=== PATIENT | female | born 1945 | race Asian ===

== ENCOUNTER 2023-09-06 18:18 | Emergency (ER) | payer MEDICARE, OTHER, SELFPAY ==
[2023-09-06 18:24] VITALS: BP 158/88; PULSE 98; RESP 20; TEMP 37.7; O2SAT 97; BMI 27.4
--- NOTE | 2023-09-06 18:41 | ED_ITS ---
HPI - General Adult General Chief complaint: Upper Respiratory Infection Stated complaint: COVID POS, FEVER Time Seen by Provider: 09/06/23 18:22 Source: patient Mode of arrival: walk-in Limitations: language barrier History of Present Illness HPI narrative: Patient is a 77-year-old female who presents to the emergency department for fever intermittently for the last 4 days. Patient states she was diagnosed with COVID, she has not been on any medications. Family member at bedside states that they were concerned because the patient has had fevers, when they use Motrin or Tylenol, her fever improves, but when the medicine wears off the fever comes back. Patient has not had any chest pain, shortness of breath. She has had a cough, she states food does not taste good. She reports nausea but has not had any significant vomiting or diarrhea. Family member is concerned for pneumonia. Patient was fully vaccinated for COVID. Related Data Previous Rx's Medication Instructions Recorded dexamethasone 4 mg tablet 4 mg PO BID 5 days #10 tabs 09/06/23 levofloxacin 750 mg tablet 750 mg PO DAILY 5 days #5 tabs 09/06/23 ondansetron 4 mg disintegrating 4 mg PO Q6H PRN nausea and 09/06/23 tablet vomiting #12 tabs Allergies Allergy/AdvReac Type Severity Reaction Status Date / Time codeine Allergy Severe fast heart Verified 09/06/23 18:24 rate Review of Systems ROS Constitutional Reports: fever and chills Ears, nose, mouth, and throat Reports: nasal congestion; Denies: throat pain Cardiovascular Denies: chest pain Respiratory Reports: cough; Denies: shortness of breath Gastrointestinal Reports: nausea; Denies: vomiting Genitourinary Denies: painful urination Musculoskeletal Denies: back pain Integumentary/Breast Denies: rash Neurological Denies: headache Exam Narrative Exam Narrative: Gen.: Awake, alert, in no distress Head: Normocephalic, atraumatic ENT: Moist mucous membranes Respiratory: No respiratory distress, lungs clear bilaterally Cardio: Regular rate and rhythm Extremities: Moves extremities equally Psych: Normal mood and affect Neuro: No focal neuro deficit Skin: Warm, dry, intact Constitutional Vital Signs, click to edit/add: Last Vital Signs Temp 100 F 09/06/23 18:24 Pulse 98 H 09/06/23 18:24 Resp 20 09/06/23 18:24 BP 158/88 H 09/06/23 18:24 Pulse Ox 97 09/06/23 18:24 O2 Del Method Room Air 09/06/23 18:24 Course Vital Signs Vital signs: Vital Signs Temperature 100 F 09/06/23 18:24 Pulse Rate 98 H 09/06/23 18:24 Respiratory Rate 20 09/06/23 18:24 Blood Pressure 158/88 H 09/06/23 18:24 Pulse Oximetry 97 09/06/23 18:24 Oxygen Delivery Method Room Air 09/06/23 18:24 Temperature 100 F 09/06/23 18:24 Pulse Rate 98 H 09/06/23 18:24 Respiratory Rate 20 09/06/23 18:24 Blood Pressure 158/88 H 09/06/23 18:24 Pulse Oximetry 97 09/06/23 18:24 Oxygen Delivery Method Room Air 09/06/23 18:24 Medical Decision Making MDM Narrative Medical decision making narrative: Patient was stable vital signs in the ER, I gave education and reassurance to the patient and family member at bedside about fever control. Patient's t emperature is controlled in the ER, vital signs are otherwise stable. She has no complaints of chest pain or shortness of breath. She was treated with Zofran and Decadron in the ER and chest x-ray shows mild bibasilar opacities, no significant consolidated infiltrate. Patient placed on Levaquin due to her age and history of diabetes for the bibasilar opacifications, as well as Decadron and Zofran for home. She is well-hydrated and nontoxic at time of discharge. Follow-up with PCP and return to the ER if symptoms change or worsen. Medical Records Medical records reviewed: Yes I reviewed the patient's medical records Imaging Data Chest x-ray: Attestation: I have reviewed the pertinent imaging results. Radiologist's impression: Procedure: XR chest 1V EXAMINATION: XR chest 1V 09/06/2023 4:24 PM PST HISTORY: Cough, Covid + TECHNIQUE: Single frontal view of the chest acquired. COMPARISONS: Chest x-ray 01/24/2022 FINDINGS: Lines/tubes/other: None. Heart and mediastinum: The heart and the mediastinum are within normal limits for technique. Bones: No acute osseous abnormality. Lungs: Mild patchy bibasilar opacification. Pleura: There is no significant pleural effusion or pneumothorax. Other: None. IMPRESSION: Mild bibasilar opacification compatible with pneumonia in the setting of cough and positive COVID. Recommend follow-up 2 view chest x-ray in 2-3 months to ensure improvement. Electronically authenticated by: CHANDLER HAYNES Date: 09/06/2023 19:26 Discharge Plan Discharge Chief Complaint: Upper Respiratory Infection Clinical Impression: COVID-19 Patient Disposition: Home, Self-Care Time of Disposition Decision: 19:35 Condition: Good Prescriptions / Home Meds: New levofloxacin 750 mg tablet 750 mg PO DAILY 5 Days Qty: 5 0RF dexamethasone 4 mg tablet 4 mg PO BID 5 Days Qty: 10 0RF ondansetron 4 mg tablet,disintegrating 4 mg PO Q6H PRN (Reason: nausea and vomiting) Qty: 12 0RF Instructions: COVID-19 (Coronavirus Disease 2019) (ED), How to Recover from COVID-19 at Home (ED) Stand Alone Forms: Portal Instructions Referrals: AGUSTIN BOLTON [Primary Care Provider] - 1 week
--- NOTE | 2023-09-06 18:50 | XR_ITS ---
The [address] [address] Patient Name: ALMAS IZAGUIRRE MRN: [id number] date: 1945 Sex: F Assigned Patient Location: ED.MAIN Current Patient Location: ER Accession/Order Number: [id number] Exam Date: 09/06/2023 18:45 Report Date: 09/06/2023 19:26 At the request of: RADHA GRAY Procedure: XR chest 1V EXAMINATION: XR chest 1V 09/06/2023 4:24 PM PST HISTORY: Cough, Covid + TECHNIQUE: Single frontal view of the chest acquired. COMPARISONS: Chest x-ray 01/24/2022 FINDINGS: Lines/tubes/other: None. Heart and mediastinum: The heart and the mediastinum are within normal limits for technique. Bones: No acute osseous abnormality. Lungs: Mild patchy bibasilar opacification. Pleura: There is no significant pleural effusion or pneumothorax. Other: None. XR/XR chest 1V IMPRESSION: Mild bibasilar opacification compatible with pneumonia in the setting of cough and positive COVID. Recommend follow-up 2 view chest x-ray in 2-3 months to ensure improvement. Electronically authenticated by: CHANDLER HAYNES Date: 09/06/2023 19:26
[2023-09-06] MEDS: DEXAMETHASONE SOD PHOS 10 MG/ML VIAL PO (19:46)
[2023-09-06] MEDS: ONDANSETRON 4 MG RAPDIS TABLET SL (19:47)
== END 2023-09-06 19:57 | disposition home or self-care (01) ==
PROVIDERS: Emergency Provider Emergency Medicine Emergency Medical Services; PCP Family Medicine
DX: U07.1 COVID-19 (principal); R50.9 Fever, unspecified
CPT/HCPCS: 71045; 99283; J1100

== ENCOUNTER 2023-09-14 11:55 | Outpatient (OUT) | payer MEDICARE, OTHER, SELFPAY ==
--- NOTE | 2023-09-14 12:02 | XR_ITS ---
The [address] [address] Patient Name: ALMAS IZAGUIRRE MRN: [id number] date: 1945 Sex: F Assigned Patient Location: LAB Current Patient Location: LAB Accession/Order Number: [id number] Exam Date: 09/14/2023 12:15 Report Date: 09/14/2023 12:37 At the request of: AGUSTIN BOLTON Procedure: XR chest 2V EXAM: XR chest 2V HISTORY: Pneumonia Due To COVID 19 U07.1 COMPARISON: None. TECHNIQUE: PA and lateral views of the chest. FINDINGS: The cardiomediastinal silhouette is normal. Nodular opacity of the bilateral parahilar. No focal consolidation is identified. There is no pneumothorax. No pleural effusion is noted. The osseous structures are intact. XR/XR chest 2V IMPRESSION: No focal consolidation. Possible bilateral mediastinal lymphadenopathy. This could be further evaluated with CT. Electronically authenticated by: DANIEL MAGANA Date: 09/14/2023 12:37
== END 2023-09-14 11:56 | disposition home or self-care (01) ==
PROVIDERS: PCP Family Medicine; Visit Provider Family Medicine
DX: U07.1 COVID-19 (principal); J12.82 Pneumonia due to coronavirus disease 2019
CPT/HCPCS: 71046

== ENCOUNTER 2023-09-22 08:44 | Outpatient (OUT) | payer MEDICARE, OTHER, SELFPAY ==
--- NOTE | 2023-09-22 | CT_ITS ---
The [address] [address] Patient Name: ALMAS IZAGUIRRE MRN: [id number] date: 1945 Sex: F Assigned Patient Location: LAB Current Patient Location: LAB Accession/Order Number: [id number] Exam Date: 09/22/2023 09:17 Report Date: 09/25/2023 11:44 At the request of: AGUSTIN BOLTON Procedure: CT chest w con EXAM: CT chest w con ,09/22/2023. COMPARISON STUDY: CT of the chest without contrast 01/27/2022 HISTORY: SOFT TISSUE MASS HILAR LYMPHADENOPATHY R59.0 TECHNIQUE: 3 mm sections were obtained from the thoracic inlet through the diaphragm following the administration of intravenous contrast. Coronal and sagittal reconstructed images were obtained. FINDINGS: There is a lobulated hypervascular left hepatic lesion involving the lateral segment with transverse diameter of 18 mm. A hypodense lesion on prior study of this region is of similar size. Mild background atrophic changes of the kidneys with multifocal cortical thinning and scarring noted. Multiple small right renal cysts, one of which measures 16 mm noted. Upper abdominal contents demonstrate no acute abnormality. Similar atherosclerotic change of the aorta and its branches are identified without aortic aneurysm/dissection. Heart size is stable. Subcentimeter calcified right paratracheal node is identified. No new significantly enlarged adenopathy. No convincing evidence of a large acute central pulmonary embolus. Minor chronic right apical fibrotic change is stable, image #11, series 4. Vertically oriented linear fibrosis more caudally involving the right upper lobe caudal to this with mild adjacent architectural distortion and mild volume loss again identified. No edema, failure, pneumonia, pneumothorax, or mass lesion has developed. Lingular atelectatic/fibrotic change is also stable. Multilevel lower cervical more so than thoracic degenerative changes of the spine are noted. Chondrocalcinosis with similar arthritic changes about the sternoclavicular articulations noted again. Subcentimeter sclerotic change associated with the left third and sixth ribs anterolaterally are stable. CT/CT chest w con IMPRESSION: 1. Stable chronic fibrotic changes associated with the right upper lobe and inferior lingula. No acute cardiopulmonary process. 2. No significantly enlarged adenopathy. No suspicious pulmonary mass or nodule. 3. Lobulated hypervascular lesion within lateral segment left hepatic lobe presumably related to hemangioma versus focal nodular hyperplasia. 4. Multifocal cortical thinning and scarring at the upper poles of both kidneys as well as multiple right renal cysts noted. Electronically authenticated by: LESTER DE LEON Date: 09/25/2023 11:44
[2023-09-22 09:03] LABS: Estimated GFR (African America >60 (>=60); Estimated GFR (Non-African Ame 51 (>=60)
== END 2023-09-22 08:45 | disposition home or self-care (01) ==
LOC: LAB 08:45
PROVIDERS: PCP Family Medicine; Visit Provider Family Medicine
DX: R59.0 Localized enlarged lymph nodes (principal); I12.9 Hypertensive chronic kidney disease with stage 1 through stage 4 chronic kidney disease, or unspecified chronic kidney disease; N18.30 Chronic kidney disease, stage 3 unspecified
CPT/HCPCS: 36415; 71260; 82565; Q9967

== ENCOUNTER 2024-10-14 09:58 | Emergency (ER) | payer MEDICARE, OTHER, SELFPAY ==
--- NOTE | 2024-10-14 | XR_ITS ---
[address] [address] Patient Name: ALMAS IZAGUIRRE MRN: [id number] date: 1945 Sex: F Assigned Patient Location: ER Current Patient Location: ER Accession/Order Number: [id number] Exam Date: 10/14/2024 10:35 Report Date: 10/14/2024 10:57 At the request of: NITO QUINTANA Procedure: XR chest 2V EXAMINATION: XR chest 2V HISTORY: cough COMPARISON: XR chest 09/14/2023 FINDINGS: LUNGS: No significant pulmonary parenchymal abnormalities. VASCULATURE: No increased pulmonary vasculature. PLEURA: No pneumothorax, effusion, or pleural thickening. CARDIAC: No cardiomegaly or cardiac silhouette abnormality. MEDIASTINUM: No visible mass or adenopathy. BONES: No fracture or visible bone lesion. OTHER: Negative. XR/XR chest 2V IMPRESSION: 1. No acute cardiopulmonary process. Electronically authenticated by: MARK MOMIN Date: 10/14/2024 10:57
[2024-10-14 10:03] VITALS: BP 139/75; PULSE 64; TEMP 37.2; O2SAT 98; BMI 29.3
--- NOTE | 2024-10-14 10:24 | ED_ITS ---
HPI HPI - General Adult General Chief complaint: Upper Respiratory Infection Stated complaint: URTI COMPLAINTS Time Seen by Provider: 10/14/24 10:07 Source: patient Mode of arrival: walk-in Limitations: no limitations History of Present Illness HPI narrative: Presenting to the emergency department for evaluation of not feeling well. Patient went to urgent care, they gave her steroid, Z-Enrique, and that inhaler. Patient states that she does not feel any better, she was there about a week, but would be gone today. Not having any chest pain, shortness of breath, fevers, chills. Is not having any sputum production. States that approximately week ago she was having a couple days of cough, nasal congestion, sore throat, throat itching. No chest pain, shortness of breath. No other complaints at this time Related Data Home Medications ?Medication ?Instructions ?Recorded ?Confirmed albuterol sulfate 90 mcg/actuation inhalation 10/14/24 aerosol inhaler amlodipine 10 mg tablet mg 10/14/24 aspirin 81 mg capsule 81 mg PO DAILY 10/14/24 10/14/24 atorvastatin 20 mg tablet mg 10/14/24 atorvastatin 40 mg tablet mg 10/14/24 bisoprolol 10 1 tab PO DAILY 10/14/24 10/14/24 mg-hydrochlorothiazide 6.25 mg tablet empagliflozin 10 mg tablet mg 10/14/24 (Jardiance) levothyroxine 75 mcg tablet mcg 10/14/24 losartan 100 mg tablet (Cozaar) 100 mg PO DAILY 10/14/24 10/14/24 Previous Rx's ?Medication ?Instructions ?Recorded dexamethasone 4 mg tablet 4 mg PO BID 5 days #10 tabs 09/06/23 levofloxacin 750 mg tablet 750 mg PO DAILY 5 days #5 tabs 09/06/23 ondansetron 4 mg disintegrating 4 mg PO Q6H PRN nausea and 09/06/23 tablet vomiting #12 tabs Allergies Allergy/AdvReac Type Severity Reaction Status Date / Time codeine Allergy Severe fast heart Verified 10/14/24 10:06 rate Opioid HPI Opioid Management Most Recent Opioid Data: No Data to Display Review of Systems ROS Narrative Negative unless otherwise stated in the HPI PFSH PFSH Social History Little interest or pleasure in doing things: not at all Feeling down, depressed, or hopeless: not at all Exam Narrative Exam Narrative: General: NAD, AAOx3, no distress Eyes: PERRL, EOMI, lids/conjunctiva normal. HEENT: NCAT, mmm, TMs normal bilaterally. No lymphangitis/lymphedema, midline uvula, no exudates, normal tonsils without hypertrophy or exudates Neck: Supple, no LAD, negative Kernig/Brudzinski, non meningeal, no bruit Respiratory: respiratory effort normal, speaks in full sentences, no tripod position, no accessory muscle use. Lungs clear to auscultation without rhonchi, wheezes, rales Cardiac: Regular rate and rhythm, no edema, regular s1/s2, no m/g/r Constitutional Vital Signs, click to edit/add: Last Vital Signs Temp 99.0 F 10/14/24 10:03 Pulse 64 10/14/24 10:03 Resp 18 10/14/24 10:03 BP 139/75 10/14/24 10:03 Pulse Ox 98 10/14/24 10:03 O2 Del Method Room Air 10/14/24 10:03 Course Vital Signs Vital signs: Vital Signs Temperature 99.0 F 10/14/24 10:03 Pulse Rate 64 10/14/24 10:03 Respiratory Rate 18 10/14/24 10:03 Blood Pressure 139/75 10/14/24 10:03 Pulse Oximetry 98 10/14/24 10:03 Oxygen Delivery Method Room Air 10/14/24 10:03 Temperature 99.0 F 10/14/24 10:03 Pulse Rate 64 10/14/24 10:03 Respiratory Rate 18 10/14/24 10:03 Blood Pressure 139/75 10/14/24 10:03 Pulse Oximetry 98 10/14/24 10:03 Oxygen Delivery Method Room Air 10/14/24 10:03 Medical Decision Making MDM Narrative Medical decision making narrative: [facility] Patient with history as above presented with upper respiratory infection. History obtained from patient. Patient was nontoxic, stable. Ambulatory. Exam as above. Independently reviewed imaging. Reviewed external records. Differential diagnosis considered. Overall presentation is consistent with a viral RI Pt who presented to the ER today for URI symptoms. Patient on exam was well appearing and non toxic appearing. Vitals were reviewed. Patient has no symptoms of otitis media, pneumonia, bacterial pharyngitis or other serious bacterial illness. Respiratory status is unremarkable. At this point in time, patient likely has viral syndrome with no indications for antibiotics. I have recommended fluids and motrin for symptomatic control. Close follow up with PCP. Advanced guidance has been given. Vss, pex is benign at this time. Pt to fu with pcp 1-2 days for reeval, rter should sx worsen, persist or become worrysome in any way. Pt expressed understanding and agreement with plan of care at this time. Will fu as planned. Pt stable for discharge. Lab Data Labs: Lab Results 10/14/24 Range/Units 10:26 Influenza Type A Ag Negative Influenza Type B Ag Negative SARS-CoV-2 Ag (CV2AG) Negative (NEGATIVE) Discharge Plan Discharge Chief Complaint: Upper Respiratory Infection Clinical Impression: Upper respiratory infection Patient Disposition: Home, Self-Care Time of Disposition Decision: 12:07 Prescriptions / Home Meds: No Action levofloxacin 750 mg tablet 750 mg PO DAILY 5 Days Qty: 5 0RF dexamethasone 4 mg tablet 4 mg PO BID 5 Days Qty: 10 0RF ondansetron 4 mg tablet,disintegrating 4 mg PO Q6H PRN (Reason: nausea and vomiting) Qty: 12 0RF atorvastatin 40 mg tablet levothyroxine 75 mcg tablet amlodipine 10 mg tablet Jardiance 10 mg tablet losartan [Cozaar] 100 mg tablet 100 mg PO DAILY bisoprolol-hydrochlorothiazide 10-6.25 mg tablet 1 tab PO DAILY aspirin 81 mg capsule 81 mg PO DAILY atorvastatin 20 mg tablet albuterol sulfate 90 mcg/actuation HFA aerosol inhaler INHALATION Print Language: Irish Instructions: Upper Respiratory Infection (DC) Additional Instructions: Follow-up with your PCP in the next 1 to 2 days. Return to the emergency department should symptoms worsen or become worrisome in any way. Referrals: AGUSTIN BOLTON [Primary Care Provider] - 1 week
[2024-10-14 10:53] LABS: Influenza Virus A Antigen Negative; Influenza Virus B Antigen Negative; Internal Control Within Normal Limits; SARS-CoV-2 Ag NEGATIVE (NEGATIVE)
== END 2024-10-14 12:27 | disposition home or self-care (01) ==
PROVIDERS: Emergency Provider Emergency Medicine; PCP Family Medicine
DX: J06.9 Acute upper respiratory infection, unspecified (principal)
CPT/HCPCS: 71046; 87804; 87811; 99284

== ENCOUNTER 2025-05-16 08:10 | Emergency (ER) | payer MEDICARE, OTHER, SELFPAY ==
[2025-05-16 08:15] VITALS: BP 166/93; PULSE 67; TEMP 36.8; O2SAT 98; BMI 29.3
--- OUTSIDE RECORDS SUMMARY | 2025-05-16 08:18 | XMS_ITS | CCD ---
Author Organization [facility] CliniSyms Care Team Providers Care 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 Name Role Phone JON, DR MATT May Admitting Unavailable FURLONG, DR MATT May Attending Unavailable FURLONG, DR MATT May Primary Care Unavailable FURLONG, DR MATT May Consulting Unavailable RACHELLONG, MATT May Primary Care Unavailable Chris Garcia Admitting Unavailable Chris Garcia Attending Unavailable FURLONG, MATT Mya Referring Unavailable FURLONG, MATT May Primary Care Unavailable Furlong Matt AMEZCUA Primary Care Provider [phone] MATT WEBB Referring Unavailable FURLONG, MATT May Primary Care Unavailable FURLONG, MATT May Referring Unavailable FURLONG, MATT May Primary Care Unavailable FURLONG, MATT May Referring Unavailable FURLONG, MATT May Primary Care Unavailable Furlong Matt AMEZCUA Primary Care Provider [phone] Gemini Silva APRN Attending Provider Gemini Silva Attending Unavailable Gemini Silva Admitting Unavailable FURLONG, MATT May Attending Unavailable FURLONG, MATT May Referring Unavailable FURLONG, MATT May Primary Care Unavailable FURLONG, MATT May Attending Unavailable FURLONG, MATT May Referring Unavailable FURLONG, MATT May Primary Care Unavailable FURLONG, MATT May Referring Unavailable FURLONG, MATT May Primary Care Unavailable FURLONG, MATT May Attending Unavailable FURLONG, MATT G Referring Unavailable FURLONG, MATT G Primary Care Unavailable FURLONG, MATT May Attending Unavailable FURLONG, MATT May Referring Unavailable FURLONG, MATT G Primary Care Unavailable FURLONG, MATT May Attending Unavailable FURLONG, MATT May Referring Unavailable FURLONG, MATT May Primary Care Unavailable Allergies Allergy Classification Reported Allergen(s) Allergy Type Date of Onset Reaction(s) Facility (1 source) Cortisone Drug Allergy [facility] Repository (1 source) Acetaminophen / HYDROcodone; Translations: [[place]] Drug Allergy [facility] Repository (20 sources) Codeine; Translations: [codeine] Drug Allergy 07-25-2022 [facility] Repository (20 sources) Acetaminophen / HYDROcodone; Translations: [HYDROCODONE-ACETA MINOPHEN] Drug Allergy 07-26-2022 [facility] Repository Medications Current Medications Medication Drug Class(es) Dates Sig (Normalized) Sig (Original) amLODIPine 10 mg oral tablet (20 sources) Dihydropyridine Calcium Channel Kaelyn Start: 03-19-2025 take 1 tablet by mouth once daily after dinner amLODIPine (NORVASC) 10 mg tablet Indications: Primary hypertension Take 1 tablet (10 mg total) by mouth daily after dinner. 03/19/2025 Active Start: 10-31-2024 End: 03-19-2025 take 0.5 tablet by mouth once daily after dinner amLODIPine (NORVASC) 10 mg tablet Indications: Primary hypertension Take 0.5 tablets (5 mg total) by mouth daily after dinner. 10/31/2024 03/19/2025 Discontinued Start: 07-15-2023 End: 10-31-2024 take 1 tablet by mouth once daily Amlodipine 10 mg tablet Active 10 MG PO Daily October 07, 2024 1:00am ascorbic acid 100 mg oral tablet (11 sources) Vitamin C take 1 tablet by mouth in the morning ascorbic acid, vitamin C, (VITAMIN C) 100 MG tablet Take 1 tablet (100 mg total) by mouth in the morning. Active aspirin 81 mg chewable tablet (20 sources) Platelet Aggregation Inhibitor, Nonsteroidal Anti-inflammatory Drug Start: 10-07-2024 take 1 tablet by mouth once daily Aspirin 81 mg tablet,chewable Active 81 MG PO Daily October 07, 2024 1:00am Start: 07-26-2022 take 1 tablet by leda th in the morning aspirin 81 mg Indications: Primary hypertension Take 1 tablet (81 mg total) by mouth in the morning. 150 tablet 2 07/26/2022 Active atorvastatin 40 mg oral tablet (20 sources) HMG-CoA Reductase Inhibitor Start: 01-17-2024 End: 12-12-2024 atorvastatin (LIPITOR) 40 mg tablet TAKE 1 TABLET IN THE MORNING 90 tablet 3 12/12/2024 Active Start: 09-14-2023 End: 01-17-2024 take 1 tablet by mouth in the morning atorvastatin (LIPITOR) 20 mg tablet Indications: Mixed hyperlipidemia Take 1 tablet (20 mg total) by mouth in the morning. 90 tablet 2 09/14/2023 01/17/2024 Discontinued (Dose adjustment) Bisoprolol / hydroCHLOROthiazide (20 sources) Thiazide Diuretic, beta-Adrenergic Kaelyn Start: 10-07-2024 take 1 tablet by mouth once daily Bisoprolol-Hydrochlorothiazide 10-6.25 mg tablet Active 1 TAB PO daily October 07, 2024 1:00am Start: 09-05-2023 End: 08-21-2024 bisoprolol-hydroCHLOROthiazi de (ZIAC) 10-6.25 mg per tablet Indications: Primary hypertension TAKE 1 TABLET IN THE MORNING 90 tablet 3 08/21/2024 Active calcium citrate 250 mg / ergocalciferol 100 mg oral tablet (11 sources) Provitamin D2 Compound take 1 tablet by mouth once in the morning calcium citrate-vitamin D2 250 mg-2.5 mcg (100 unit) per tablet Take by mouth in the morning. Active calcium citrate- vitamin D2 250 mg-2.5 mcg (100 unit) per tablet Take by mouth once daily. Active ciprofloxacin 250 mg oral tablet (1 source) Quinolone Antimicrobial Start: 03-09-2025 take 1 tablet by mouth every twelve hours Ciprofloxacin Hcl (Cipro) 250 mg tablet Active 250 MG PO Every 12 hours 10 March 09, 2025 12:00am empagliflozin 10 mg oral tablet (20 sources) Sodium-Glucose Cotransporter 2 Inhibitor Start: 09-24-2024 End: 03-13-2025 take 1 tablet by mouth in the morning empagliflozin (JARDIANCE) 10 mg tablet tablet Indications: Benign hypertension with CKD (chronic kidney disease) stage III ([facility]-H[facility]) Take 1 tablet (10 mg total) by mouth in the morning. 90 tablet 03/13/2025 Active Start: 09-14-2023 End: 06-05-2024 empagliflozin (JARDIANCE) 10 mg tablet tablet Indications: 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) TAKE 1 TABLET IN THE MORNING 90 tablet 1 06/05/2024 Active famotidine 20 mg oral tablet (20 sources) Histamine-2 Receptor Antagonist Start: 09-14-2023 End: 02-26-2024 take 1 tablet by mouth in the morning, then take 1 tablet by mouth at bedtime famotidine (PEPCID) 20 mg tablet Take 1 tablet (20 mg total) by mouth in the morning and 1 tablet (20 mg total) before bedtime. 180 tablet 1 02/26/2024 Active 30 actuat fluticasone furoate 0.1 mg/actuat / umeclidinium 0.0625 mg/actuat / vilanterol 0.025 mg/actuat dry powder inhaler (1 source) Anticholinergic, Corticosteroid, beta2-Adrenergic Agonist Start: 10-31-2024 End: 11-14-2024 take 1 puff(s) by inhalation once daily fluticasone-umecl idin-vilanter (TRELEGY ELLIPTA) 100-62.5-25 mcg blister with device Inhale 1 puff once daily for 14 days. 1 each 10/31/2024 11/14/2024 Active hydrocortisone 10 mg/ml / neomycin 3.5 mg/ml / polymyxin b [id number] unt/ml otic solution (2 sources) Aminoglycoside Antibacterial, Polymyxin-class Antibacterial, Corticosteroid Start: 07-21-2024 End: 07-31-2024 neomycin-polymyxi n-HC (CORTISPORIN) otic solution Administer 3 drops into the left ear 3 (three) times a day for 10 days. 10 mL 07/21/2024 07/31/2024 Active lifitegrast 50 mg/ml ophthalmic solution (10 sources) Lymphocyte Function-Associated Antigen-1 Antagonist End: 07-21-2024 lifitegrast (XIIDRA) 5 % dropperette Instill to eye. 07/21/2024 Discontinued (Therapy completed) losartan potassium 100 mg oral tablet (20 sources) Angiotensin 2 Receptor Kaelyn Start: 09-24-2024 take 1 tablet by mouth in the morning losartan (COZAAR) 100 mg tablet Indications: Benign hypertension with CKD (chronic kidney disease) stage III ([facility]-HCC) Take 1 tablet (100 mg total) by mouth in the morning. 90 tablet 3 09/24/2024 Active Start: 09-22-2024 losartan (COZA AR) 100 mg tablet Indications: Benign hypertension with CKD (chronic kidney disease) stage III ([facility]-HCC) TAKE 1 TABLET IN THE MORNING 90 tablet 3 09/22/2024 Active Start: 08-23-2023 End: 09-22-2024 losartan (COZAAR) 100 mg tab let Indications: Benign hypertension with CKD (chronic kidney disease) stage III ([facility]-H[facility]) TAKE 1 TABLET IN THE MORNING 90 tablet 3 08/23/2023 09/22/2024 Discontinued yysiygpc-fafq-SN-calcium &mi ns (THERAGRAN-M) 9 mg iron-400 mcg tablet (11 sources) uqihmfdz-xxgh-RE -calcium &mins (THERAGRAN-M) 9 mg iron-400 mcg tablet Take 1 tablet by mouth in the morning. Active czwum-8-kqe-wmn-paf-exch oil 1,050-1,200 mg capsule (11 sources) take [id number] mg by mouth in the morning evokq-1-nls-yvj-dnl-ygex oil 1,050-1,200 mg capsule Take by mouth in the morning. Active nvszc-6-mig-epa- dpa-fish oil 1,050-1,200 mg capsule Take by mouth daily. Active triamcinolone acetonide 1 mg/ml topical cream (13 sources) Corticosteroid Start: 10-31-2024 End: 10-31-2024 triamcinolone (KENALOG) 0.1 % cream Apply 1 Application topically in the morning and 1 Application before bedtime. 30 g 10/31/2024 Active Completed/Discontinued Medications Medication Drug Class(es) Dates Sig (Normalized) Sig (Original) Albuterol Sulfate 90 mcg/actuation HFA aerosol inhaler (2 sources) Start: 10-07-2024 End: 03-09-2025 Albuterol Sulfate 90 mcg/actuation HFA aerosol inhaler Discontinued 2 INH INHALATION EVERY 4-6 HOURS as needed for shortness of breath or wheezing 6.7 October 07, 2024 1:00am March 09, 2025 6:27pm fenofibrate 54 mg oral tablet (3 sources) Peroxisome Proliferator Receptor alpha Agonist Start: 07-26-2022 End: 01-16-2024 take 1 tablet by mouth in the morning fenofibrate (LOFIBRA) 54 mg tablet Indications: Mixed hyperlipidemia Take 1 tablet (54 mg total) by mouth in the morning. 90 tablet 3 07/26/2022 01/16/2024 Discontinued (Ineffective) levothyroxine sodium 0.075 mg oral tablet (20 sources) l-Thyroxine Start: 05-25-2023 End: 05-13-2025 take 1 tablet by mouth once daily in the morning levothyroxine (SYNTHROID, LEVOTHROID) 75 MCG tablet Indications: Acquired hypothyroidism TAKE 1 TABLET BY MOUTH EVERY MORNING 90 tablet 2 01/27/2025 05/13/2025 Discontinued (Reorder) ondansetron 4 mg disintegrating oral tablet (3 sources) Serotonin-3 Receptor Antagonist Start: 09-06-2023 End: 01-16-2024 ondansetron ODT (ZOFRAN ODT) 4 mg disintegrating tablet dissolve 1 tablet ON TONGUE every 6 hours if needed for nausea OR vomiting 09/06/2023 01/16/2024 Discontinued (Therapy completed) oseltamivir 75 mg oral capsule (2 sources) Neuraminidase Inhibitor Start: 10-07-2024 End: 03-09-2025 take 1 capsule by mouth twice daily Oseltamivir (Tamiflu) 75 mg capsule Discontinued 75 MG PO Twice daily 10 October 07, 2024 1:00am March 09, 2025 6:28pm pantoprazole 40 mg delayed release oral tablet (3 sources) Proton Pump Inhibitor Start: 07-26-2022 End: 01-16-2024 take 1 tablet by mouth in the morning pantoprazole (PROTONIX) 40 mg EC tablet Indications: Gastroesophageal reflux disease without esophagitis Take 1 tablet (40 mg total) by mouth in the morning. 90 tablet 1 07/26/2022 01/16/2024 Discontinued (Therapy completed) predniSONE 20 mg oral tablet (2 sources) Start: 10-07-2024 End: 03-09-2025 take 2 tablets by mouth once daily Prednisone 20 mg tablet Discontinued 40 MG PO Daily 6 October 07, 2024 1:00am March 09, 2025 6:28pm Problems Active Problems Problem Classification Problem Date Documented Da te Episodic/Chronic Chronic kidney disease (2 sources) Chronic kidney disease; Translations: [Chronic kidney disease, stage 3 unspecified] Onset: Diabetes mellitus without complication (2 sources) Diabetes mellitus; Translations: [Type 2 diabetes mellitus without complications] 10-07-2024 Chronic Disorders of lipid metabolism (20 sources) Hyperlipidemia; Translations: [Hyperlipidemia, unspecified] Onset: 2 07-26-2022 Chronic Esophageal disorders (20 sources) Gastroesophageal reflux disease; Translations: [Gastro-esophageal reflux disease without esophagitis] Onset: 2 07-26-2022 Chronic Essential hypertension (20 sources) Essential hypertension; Translations: [Essential (primary) hypertension] Onset: 2 10-31-2024 Chronic Hypertension with complications and secondary hypertension (20 sources) Chronic kidney disease stage 3; Translations: [Hypertensive chronic kidney disease with stage 1 through stage 4 chronic kidney disease, or unspecified chronic kidney disease] Onset: 2 09-22-2022 Chronic Influenza (2 sources) Influenza due to Influenza A virus; Translations: [Influenza due to other identified influenza virus with other respiratory manifestations] 10-07-2024 Episodic Nonspecific chest pain (2 sources) Chest pain; Translations: [Chest pain, unspecified] Onset: 5 03-19-2025 Episodic Osteoporosis (20 sources) Osteoporosis; Translations: [Age-related osteoporosis without current pathological fracture] Onset: 2 07-26-2022 Chronic Other ear and sense organ disorders (17 sources) Chronic otitis externa of left external auditory canal; Translations: [Unspecified chronic otitis externa, left ear] Onset: 4 07-21-2024 Chronic Other ear and sense organ disorders (1 source) Unspecified chronic otitis externa, left ear; Translations: [Unspecified chronic otitis externa, left ear] Onset: 4 Chronic Other gastrointestinal disorders (20 sources) Irritable bowel syndrome; Translations: [Irritable bowel syndrome without diarrhea] Onset: 2 07-26-2022 Chronic Other inflammatory condition of skin (2 sources) Inflammatory dermatosis; 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] 10-31-2024 Episodic Other lower respiratory disease (1 source) Cough; Translations: [Subacute cough] 10-31-2024 Episodic Other nervous system disorders (1 source) Other chronic pain; Translations: [Other chronic pain] Onset: 4 Chronic Other nervous system disorders (1 source) Complex regional pain syndrome type I of left upper limb; Translations: [Complex regional pain syndrome I of left upper limb] 01-16-2024 Chronic Other nervous system disorders (1 source) Impaired cognition; Translations: [Other symptoms and signs involving cognitive functions and awareness] 12-17-2024 Episodic Other non-traumatic joint disorders (2 sources) Pain in right knee; Translations: [Pain in joint, lower leg] Onset: 4 01-16-2024 Episodic Other upper respiratory disease (20 sources) Allergic rhinitis; Translations: [Allergic rhinitis, unspecified] Onset: 3 04-02-2023 Chronic Other upper respiratory disease (1 source) Hoarse; Translations: [Dysphonia] 10-31-2024 Episodic Screening and history of mental health and substance abuse codes (2 sources) Patient encounter status; Translations: [Encounter for screening for depression] 11-20-2024 Episodic Thyroid disorders (20 sources) Hypothyroidism; Translations: [Hypothyroidism, unspecified] Onset: 2 07-26-2022 Chronic Unclassified (1 source) maw Onset: 5 Unclassified (1 source) Rash Onset: 5 Urinary tract infections (2 sources) Acute urinary tract infection; Translations: [Urinary tract infection, site not specified] 03-09-2025 Episodic Past or Other Problems Problem Classification Problem Date Documented Da te Episodic/Chronic Conditions associated with dizziness or vertigo (20 sources) Vertigo; Translations: [Dizziness and giddiness] Onset: 07-26-2022 07-26-2022 Episodic Diabetes mellitus without complication (4 sources) Hyperglycemia; Translations: [Hyperglycemia, unspecified] Onset: 01-16-2024 01-16-2024 Episodic Genitourinary symptoms and ill-defined conditions (20 sources) Dysuria; Translations: [Dysuria] Onset: 12-25-2022 Resolved: 07-16-2023 07-16-2023 Episodic Immunizations and screening for infectious disease (3 sources) Needs influenza immunization; Translations: [Encounter for immunization] Onset: 07-21-2024 07-21-2024 Episodic Mood disorders (20 sources) Mood disorders Onset: 07-21-2024 Resolved: 03-19-2025 07-21-2024 Other ear and sense organ disorders (20 sources) Impacted cerumen of bilateral ears; Translations: [Impacted cerumen, bilateral] Onset: 09-22-2022 09-22-2022 Episodic Other gastrointestinal disorders (20 sources) Dysphagia; Translations: [Dysphagia, unspecified] Onset: 09-22-2022 09-22-2022 Episodic Other nervous system disorders (2 sources) Other symptoms and signs involving cognitive functions and awareness; Translations: [Other symptoms and signs involving cognitive functions and awareness] Onset: 12-17-2024 Episodic Other nutritional; endocrine; and metabolic disorders (20 sources) Overweight; Translations: [Overweight] Onset: 04-02-2023 04-02-2023 Episodic Other nutritional; endocrine; and metabolic disorders (1 source) Body mass index 25-29 - overweight; Translations: [Overweight] 01-16-2024 Episodic Other nutritional; endocrine; and metabolic disorders (1 source) Overweight; Translations: [Overweight] Onset: 04-02-2023 Episodic Unclassified (3 sources) Onset: 03-19-2025 03-19-2025 Results Test Name Value Interpretation Reference Range Facility COMPREHENSIVE METABOLIC [facility] 03-19-2025 Albumin [Mass/Vol] 4.5 g/dL Normal 3.2-5.[address] [facility] Comment on above: Performed By: #### C MP #### [facility] ([facility]) [address] [place] [address] VIR ALP [Catalytic activity/Vol] 61 U/L Normal 39-130 [facility] Comment on above: Performed By: #### C MP #### [facility] ([facility]) [address] [place] [address] VIR ALT [Catalytic activity/Vol] 25 U/L Normal <=31 [facility] Comment on above: Performed By: #### C MP #### [facility] ([facility]) [address] [place] [address] VIR Anion gap [Moles/Vol] 11 mmol/L Normal 5-15 [facility] Comment on above: Performed By: #### C MP #### [facility] ([facility]) [address] [place] [address] VIR AST [Catalytic activity/Vol] 35 U/L Normal <=41 [facility] Comment on above: Performed By: #### C MP #### [facility] ([facility]) [address] [place] [address] VIR Bilirubin [Mass/Vol] 1.2 mg/dL Normal 0.3-1.2 [facility] Comment on above: Performed By: #### C MP #### [facility] ([facility]) [address] [place] [address] VIR Calcium [Mass/Vol] 9.5 mg/dL Normal 8.5-10.[address] [facility] Comment on above: Performed By: #### C MP #### [facility] ([facility]) [address] [place] [address] VIR Chloride [Moles/Vol] 109 mmol/L Normal 98-109 [facility] Comment on above: Performed By: #### C MP #### [facility] ([facility]) [address] [place] [address] VIR CO2 [Moles/Vol] 21 mmol/L Low 22-32 [facility] Comment on above: Performed By: #### C MP #### [facility] ([facility]) [address] [place] [address] VIR Creatinine [Mass/Vol] 0.96 mg/dL Normal 0.40-1.00 [facility] Comment on above: Result Comment: METH OD TRACEABLE TO IDMS STANDARD Performed By: #### C MP #### [facility] ([facility]) [address] [place] [address] VIR GFR/1.73 sq M.predicted among non-blacks MDRD (S/P/Bld) [Vol rate/Area] 61 mL/min/{1.73_m2} Normal >=60 [facility] Comment on above: Result Comment: Repo rted eGFR is based on the CKD-EPI 2020 equation that does not use a race coefficient. Performed By: #### C MP #### [facility] ([facility]) [address] [place] [address] VIR Glucose [Mass/Vol] 92 mg/dL Normal 65-[address] [facility] Comment on above: Performed By: #### C MP #### [facility] ([facility]) [address] [place] [address] VIR Potassium [Moles/Vol] 4.5 mmol/L Normal 3.5-5.0 [facility] Comment on above: Performed By: #### C MP #### [facility] ([facility]) [address] [place] [address] VIR Protein [Mass/Vol] 6.9 g/dL Normal 6.0-8.[address] [facility] Comment on above: Performed By: #### C MP #### [facility] ([facility]) [address] [place] [address] VIR Sodium [Moles/Vol] 141 mmol/L Normal 134-[address] [facility] Comment on above: Performed By: #### C MP #### [facility] ([facility]) [address] [place] [address] VIR Urea nitrogen [Mass/Vol] 21 mg/dL Normal 5-27 [facility] Comment on above: Performed By: #### C MP #### [facility] ([facility]) [address] [place] [address] VIR Comprehensive metabolic pane gerard 03-19-2025 Albumin [Mass/Vol] 4.5 g/dL 3.2 - 5.3 g/dL [facility] ALP [Catalytic activity/Vol] 61 U/L 39 - 130 U/L [facility] ALT No additional P-5'-P [Catalytic activity/Vol] 25 U/L NINF - 31 U/L [facility] Anion gap [Moles/Vol] 11 mmol/L 5 - 15 mmol/L [facility] AST [Catalytic activity/Vol] 35 U/L NINF - 41 U/L [facility] Bilirubin [Mass/Vol] 1.2 mg/dL 0.3 - 1.2 mg/dL [facility] Calcium [Mass/Vol] 9.5 mg/dL 8.5 - 10. 5 mg/dL [facility] Chloride [Moles/Vol] 109 mmol/L 98 - 109 mmol/L [facility] CO2 [Moles/Vol] 21 mmol/L Low 22 - 32 mmol/L [facility] Creatinine [Mass/Vol] 0.96 mg/dL 0.40 - 1.00 mg/dL [facility] Comment on above: METHOD TRACEABLE TO IDSD STANDARD EGFR Non-Race Dependent 61 - PINF [facility] Comment on above: Reported eGFR is bas ed on the CKD-EPI 2020 equation that does not use a race coefficient. Glucose [Mass/Vol] 92 mg/dL 65 - 99 mg/dL [facility] Potassium [Moles/Vol] 4.5 mmol/L 3.5 - 5.0 mmol/L [facility] Protein [Mass/Vol] 6.9 g/dL 6.0 - 8.0 g/dL [facility] Sodium [Moles/Vol] 141 mmol/L 134 - 146 mmol/L [facility] Urea nitrogen [Mass/Vol] 21 mg/dL 5 - 27 mg/dL [facility] LIPID PROFILEon 03-19-2025 Cholesterol [Mass/Vol] 110 mg/dL Low 150-200 [facility] Comment on above: Performed By: #### L IPR #### [facility] ([facility]) [address] [place] [address] VIR Cholesterol in HDL [Mass/Vol] 46 mg/dL Normal >39 [facility] Comment on above: Result Comment: HDL <40 mg/dL - High Risk HDL > or = 40mg/dL- Desirable HDL >60 mg/dL - Negative Risk Performed By: #### L IPR #### [facility] ([facility]) [address] [place] [address] VIR Cholesterol in LDL [Mass/Vol] 33 mg/dL Normal <130 [facility] Comment on above: Result Comment: LDL <100 mg/dL - Desirable LDL >160 mg/dL - High Risk Performed By: #### L IPR #### [facility] ([facility]) [address] [place] [address] VIR CHOLESTEROL:HDL 2.4 Normal 1.0-5.0 [facility] Comment on above: Performed By: #### L IPR #### [facility] ([facility]) [address] [place] [address] VIR Triglyceride [Mass/Vol] 154 mg/dL High 27-150 [facility] Comment on above: Performed By: #### L IPR #### [facility] ([facility]) [address] [place] [address] VIR VERY LOW LIPOPROTEIN 31 mg/dL High 0-30 [facility] Comment on above: Performed By: #### L IPR #### [facility] ([facility]) [address] [place] [address] VIR Lipid profileon 03-19-2025 Cholesterol [Mass/Vol] 110 mg/dL Low 150 - 200 mg/dL [facility] Cholesterol in HDL [Mass/Vol] 46 mg/dL 39 - PINF mg/dL [facility] Comment on above: HDL <40 mg/dL - High Risk HDL > or = 40mg/dL- Desirable HDL >60 mg/dL - Negative Risk Cholesterol in HDL [Mass/Vol] 2.4 mg/dL 1.0 - 5.0 [facility] Cholesterol in LDL [Mass/Vol] 33 mg/dL NINF - 130 mg/dL [facility] Comment on above: LDL <100 mg/dL - Sy irable LDL >160 mg/dL - High Risk Cholesterol in VLDL [Mass/Vol] 31 mg/dL High 0 - 30 mg/dL [facility] Triglyceride [Mass/Vol] 154 mg/dL High 27 - 150 mg/dL [facility] MICROALBUMIN / CREATININE UR INE RATIOon 03-19-2025 Albumin DL <= 20 mg/L (U) [Mass/Vol] 0.7 mg/dL Normal 0.0-1.9 [facility] Comment on above: Performed By: #### M ALBU #### [facility] ([facility]) [address] [place] [address] VIR MALB/CREAT RATIO 6.8 mg/g Normal 0.0-30.0 [facility] Comment on above: Performed By: #### M ALBU #### [facility] ([facility]) [address] [place] [address] VIR URINE CREATININE,RDM 102.81 mg/dL Normal [facility] Comment on above: Performed By: #### M ALBU #### [facility] ([facility]) [address] [place] [address] VIR Microalbumin - Albumin: Crea tinine Urine Ratioon 03-19-2025 Albumin DL <= 20 mg/L (U) [Mass/Vol] 0.7 mg/dL 0.0 - 1.9 mg/dL [facility] Albumin/Creatinine DL <= 1.0 mg/L (U) [Ratio] 6.8 mg/g 0.0 - 30.0 mg/g [facility] Creatinine (U) [Mass/Vol] 102.81 mg/dL [facility] No Panel Informationon 03-19 Interpretation and review of laboratory results Abnormal [facility] POCT urinalysis dipstick onl yon 03-19-2025 Appearance (U) yellow [facility] Urine Bilirubin Negative [facility] Urine Blood Negative [facility] Urine Color yellow [facility] Urine Glucose Moderate [facility] Urine Ketones Negative [facility] Urine Leukocyte Esterase Negative [facility] Urine Nitrite Negative [facility] Urine Ph 6 [facility] Urine Protein Negative [facility] Urine Specific Currie 1.02 [facility] Urine Urobilinogen 0.2 [facility] Urine Cultureon 03-09-2025 Bacteria identified Cx Nom (U) <9,000 colonies/ml mixed bacterial skin contaminants 2 Days PERFORMED BY: [facility] [address] [id number] PATHOLOGIST HOME SERVICE CONSULTANT RALEIGH CASTILLO M.D. Normal [facility] Comment on above: Performed By: #### C UU #### [place] [id number] [facility] COMPLETE BLOOD COUNTon 12-17 Erythrocyte distribution width (RBC) [Ratio] 13.8 % Normal 11.5-15.0 [facility] Comment on above: Performed By: #### C LEXY, 41867-4, THYR #### [facility] ([id number]) [address] [place] [address] Hematocrit (Bld) [Volume fraction] 45.9 % Normal 35-47 [facility] Comment on above: Performed By: #### C LEXY, 15060-6, THYR #### [facility] ([id number]) [address], [address] [place] [address] Hemoglobin (Bld) [Mass/Vol] 15.7 g/dL High 11.7-15.5 [facility] Comment on above: Performed By: #### C LEXY, 97427-5, THYR #### [facility] ([id number]) [address], [address] [place] [address] MCH (RBC) [Entitic mass] 33.9 pg Normal 27-34 [facility] Comment on above: Performed By: #### C LEXY, 50782-2, THYR #### [facility] ([id number]) [address], [address] [place] [address] MCHC (RBC) [Mass/Vol] 34.3 g/dL Normal 32-36 [facility] Comment on above: Performed By: #### C LEXY, 87897-5, THYR #### [facility] ([id number]) [address], [address] [place] [address] MCV (RBC) [Entitic vol] 99 fL Normal 80-100 [facility] Comment on above: Performed By: #### Cori PUGH, 95604-6, THYR #### [facility] ([id number]) [address] [place] [address] Platelet mean volume (Bld) [Entitic vol] 8.7 fL Normal 7-12 [facility] Comment on above: Performed By: #### Cori PUGH, 43827-7, THYR #### [facility] ([id number]) [address] [place] [address] Platelets (Bld) [#/Vol] 348 10*3/uL Normal 150-450 [facility] Comment on above: Performed By: #### Cori PUGH, 75992-7, THYR #### [facility] ([id number]) [address], [address] [place] [address] RBC COUNT 4.64 X10E12/L Normal 3.80-5.20 [facility] Comment on above: Performed By: #### Cori PUGH, 14624-8, THYR #### [facility] ([id number]) [address], [facility] [address] [place] [address] WBC (Bld) [#/Vol] 5.9 10*3/uL Normal 4.0-11.0 [facility] Comment on above: Performed By: #### Cori PUGH, 55210-5, THYR #### [facility] ([id number]) [address], [address] [place] [address] COMPREHENSIVE METABOLIC PANE Gerard 12-17-2024 Albumin [Mass/Vol] 4.6 g/dL Normal 3.2-5.3 [facility] Comment on above: Performed By: #### Cori PUGH, 09226-0, THYR #### [facility] ([id number]) [address], [address] [place] [address] ALP [Catalytic activity/Vol] 62 U/L Normal 39-130 [facility] Comment on above: Performed By: #### Cori PUGH, 49751-0, THYR #### [facility] ([id number]) [address], [address] [place] [address] ALT [Catalytic activity/Vol] 22 U/L Normal 0-31 [facility] Comment on above: Performed By: #### Cori PUGH, 07827-4, THYR #### [facility] ([id number]) [address], [address] [place] [address] Anion gap [Moles/Vol] 9 mmol/L Normal 5-15 [facility] Comment on above: Performed By: #### Cori PUGH 75846-9, THYR #### [facility] ([id number]) [address], [address] [place] [address] AST [Catalytic activity/Vol] 33 U/L Normal 0-41 [facility] Comment on above: Performed By: #### Cori PUGH, 34668-3, THYR #### [facility] ([id number]) [address], [address] [place] [address] Bilirubin [Mass/Vol] 1.1 mg/dL Normal 0.3-1.2 [facility] Comment on above: Performed By: #### Cori PUGH 54349-4, THYR #### [facility] ([id number]) [address], [address] [place] [address] Calcium [Mass/Vol] 10.0 mg/dL Normal 8.5-10.5 [facility] Comment on above: Performed By: #### Cori PUGH, 34493-6, THYR #### [facility] ([id number]) [address], [address] [place] [address] Chloride [Moles/Vol] 107 mmol/L Normal 98-109 [facility] Comment on above: Performed By: #### C LEXY, 37495-6, THYR #### [facility] ([id number]) [address], [address] [place] [address] CO2 [Moles/Vol] 21 mmol/L Low 22-32 [facility] Comment on above: Performed By: #### C LEXY, 39571-7, THYR #### [facility] ([id number]) [address], [address] [place] [address] Creatinine [Mass/Vol] 0.87 mg/dL Normal 0.40-1.00 [facility] Comment on above: Result Comment: METH OD TRACEABLE TO IDMS STANDARD Performed By: #### C LEXY, 83026-7, THYR #### [facility] ([id number]) [address], [address] [place] [address] GFR/1.73 sq M.predicted among non-blacks MDRD (S/P/Bld) [Vol rate/Area] 68 mL/min/{1.73_m2} Normal >59 [facility] Comment on above: Result Comment: Reported eGFR is based on the CKD-EPI 2020 equation that does not use a race coefficient. Performed By: #### Cori PUGH, 35446-0, THYR #### [facility] ([id number]) [address], [address] [place] [address] Glucose [Mass/Vol] 99 mg/dL Normal 65-99 [facility] Comment on above: Performed By: #### Cori PUGH, 70539-8, THYR #### [facility] ([id number]) [address] [place] [address] Potassium [Moles/Vol] 4.2 mmol/L Normal 3.5-5.0 [facility] Comment on above: Performed By: #### Cori PUGH, 86869-3, THYR #### [facility] ([id number]) [address], [address] [place] [address] Protein [Mass/Vol] 7.2 g/dL Normal 6.0-8.0 [facility] Comment on above: Performed By: #### C LEXY, 77861-1, THYR #### [facility] ([id number]) [address], [address] [place] [address] Sodium [Moles/Vol] 137 mmol/L Normal 134-146 [facility] Comment on above: Performed By: #### C LEXY, 80359-3, THYR #### [facility] ([id number]) [address], [address] [place] [address] Urea nitrogen [Mass/Vol] 29 mg/dL High 5-27 [facility] Comment on above: Performed By: #### C LEXY, 96239-4, THYR #### [facility] ([id number]) [address], [address] [place] [address] POCT urinalysis dipstick onl yon 12-17-2024 Appearance (U) yellow [facility] Urine Bilirubin Negative [facility] Urine Blood Negative [facility] External Poct Urine Color yellow [facility] Urine Glucose 4+ [facility] Urine Ketones Negative [facility] Urine Leukocyte Esterase Negative [facility] Urine Nitrite Negative [facility] Urine Ph 5.5 [facility] Urine Protein Negative [facility] Urine Specific Currie 1.015 [facility] Urine Urobilinogen 0.2 [facility] THYROID PROFILEon 12-17-2024 Free T4 [Mass/Vol] 1.43 ng/dL Normal 0.61-1.60 [facility] Comment on above: Performed By: #### C LEXY, 95288-3, THYR #### [facility] ([id number]) [address], [address] [place] [address] TSH 1.91 uIU/mL Normal 0.49-4.67 [facility] Comment on above: Performed By: #### Cori PUGH, 90065-2, THYR #### [facility] ([id number]) [address], [address] [place] [address] VITAMIN B12on 12-17-2024 Cobalamin (Vitamin B12) [Mass/Vol] pg/mL High 180-914 [facility] Comment on above: Performed By: #### Cori PUGH, 60132-7, THYR #### [facility] ([id number]) [address], [address] [place] [address] COMPLETE BLOOD COUNTon 07-21 Erythrocyte distribution width (RBC) [Ratio] 13.4 % Normal 11.5-15.0 [facility] Comment on above: Performed By: #### C BC, CMP, 26379-2, 2777-1, 3084-1, 2731-8, 50200-6, HA1C #### [facility] ([id number]) [address], [address] [place] [address] Hematocrit (Bld) [Volume fraction] 45.3 % Normal 35-47 [facility] Comment on above: Performed By: #### C BC, CMP, 85445-2, 2777-1, 3084-1, 2731-8, 53180-3, HA1C #### [facility] ([id number]) [address], [address] [place] [address] Hemoglobin (Bld) [Mass/Vol] 15.6 g/dL High 11.7-15.5 [facility] Comment on above: Performed By: #### C BC, CMP, 30331-3, 2777-1, 3084-1, 2731-8, 44999-2, HA1C #### [facility] ([id number]) [address], [address] [place] [address] MCH (RBC) [Entitic mass] 33.8 pg Normal 27-34 [facility] Comment on above: Performed By: #### C BC, CMP, 68842-7, 2777-1, 3084-1, 2731-8, 17386-6, HA1C #### [facility] ([id number]) [address], [address] [address] MCHC (RBC) [Mass/Vol] 34.4 g/dL Normal 32-36 [facility] Comment on above: Performed By: #### C BC, CMP, 48159-0, 2777-1, 3084-1, 2731-8, 92109-4, HA1C #### [facility] ([id number]) [address] [address] MCV (RBC) [Entitic vol] 98 fL Normal 80-100 [facility] Comment on above: Performed By: #### C BC, CMP, 79319-2, 2777-1, 3084-1, 2731-8, 99682-6, HA1C #### [facility] ([id number]) [address], [address] [address] Platelet mean volume (Bld) [Entitic vol] 9.0 fL Normal 7-12 [facility] Comment on above: Performed By: #### C BC, CMP, 07427-0, 2777-1, 3084-1, 2731-8, 14594-4, HA1C #### [facility] ([id number]) [address] [address] Platelets (Bld) [#/Vol] 313 10*3/uL Normal 150-450 [facility] Comment on above: Performed By: #### C BC, CMP, 51481-4, 2777-1, 3084-1, 2731-8, 44569-7, HA1C #### [facility] ([id number]) [address], [address] [place] [address] RBC COUNT 4.62 X10E12/L Normal 3.80-5.20 [facility] Comment on above: Performed By: #### C BC, CMP, 05067-8, 2777-1, 3084-1, 2731-8, 17836-2, HA1C #### [facility] ([id number]) [address] [place] [address] WBC (Bld) [#/Vol] 5.7 10*3/uL Normal 4.0-11.0 [facility] Comment on above: Performed By: #### C BC, CMP, 53843-5, 2777-1, 3084-1, 2731-8, 68722-1, HA1C #### [facility] ([id number]) [address] [place] [address] COMPREHENSIVE METABOLIC PANE [facility] 07-21-2024 Albumin [Mass/Vol] 4.6 g/dL Normal 3.2-5.3 [facility] Comment on above: Performed By: #### C BC, CMP, 51202-9, 2777-1, 3084-1, 2731-8, 43989-3, HA1C #### [facility] ([id number]) [address] [place] [address] ALP [Catalytic activity/Vol] 69 U/L Normal 39-130 [facility] Comment on above: Performed By: #### C BC, CMP, 03917-2, 2777-1, 3084-1, 2731-8, 29458-2, HA1C #### [facility] ([id number]) [address], [address] [place] [address] ALT [Catalytic activity/Vol] 24 U/L Normal 0-31 [facility] Comment on above: Performed By: #### C BC, CMP, 67628-8, 2777-1, 3084-1, 2731-8, 97152-4, HA1C #### [facility] ([id number]) [address] [place] [address] Anion gap [Moles/Vol] 10 mmol/L Normal 5-15 [facility] Comment on above: Performed By: #### C BC, CMP, 68368-1, 2777-1, 3084-1, 2731-8, 67109-6, HA1C #### [facility] ([id number]) [address] [place] [address] AST [Catalytic activity/Vol] 32 U/L Normal 0-41 [facility] Comment on above: Performed By: #### C BC, CMP, 48070-1, 2777-1, 3084-1, 2731-8, 49509-7, HA1C #### [facility] ([id number]) [address], [address] [place] [address] Bilirubin [Mass/Vol] 1.1 mg/dL Normal 0.3-1.2 [facility] Comment on above: Performed By: #### C BC, CMP, 36405-5, 2777-1, 3084-1, 2731-8, 91124-6, HA1C #### [facility] ([id number]) [address], [address] [place] [address] Calcium [Mass/Vol] 9.7 mg/dL Normal 8.5-10.5 [facility] Comment on above: Performed By: #### C BC, CMP, 52980-9, 2777-1, 3084-1, 2731-8, 88119-4, HA1C #### [facility] ([id number]) [address] [place] [address] Chloride [Moles/Vol] 107 mmol/L Normal 98-109 [facility] Comment on above: Performed By: #### C BC, CMP, 05136-4, 2777-1, 3084-1, 2731-8, 79377-6, HA1C #### [facility] ([id number]) [address], [address] [place] [address] CO2 [Moles/Vol] 25 mmol/L Normal 22-32 [facility] Comment on above: Performed By: #### C BC, CMP, 26893-0, 2777-1, 3084-1, 2731-8, 56704-5, HA1C #### [facility] ([id number]) [address] [facility] [place] [address] Creatinine [Mass/Vol] 0.89 mg/dL Normal 0.40-1.00 [facility] Comment on above: Result Comment: METH OD TRACEABLE TO IDMS STANDARD Performed By: #### C BC, CMP, 89981-5, 2777-1, 3084-1, 2731-8, 43226-1, HA1C #### [facility] ([id number]) [address] [facility] [facility] [address] [place] [address] GFR/1.73 sq M.predicted among non-blacks MDRD (S/P/Bld) [Vol rate/Area] 67 mL/min/{1.73_m2} Normal >59 [facility] Comment on above: Result Comment: Reported eGFR is based on the CKD-EPI 2020 equation that does not use a race coefficient. Performed By: #### C BC, CMP, 55592-2, 2777-1, 3084-1, 2731-8, 33708-4, HA1C #### [facility] ([id number]) [address] [facility] [address] [place] [address] Glucose [Mass/Vol] 102 mg/dL High 65-99 [facility] Comment on above: Performed By: #### C BC, CMP, 87781-6, 2777-1, 3084-1, 2731-8, 46245-9, HA1C #### [facility] ([id number]) [address] [place] [address] Potassium [Moles/Vol] 4.4 mmol/L Normal 3.5-5.0 [facility] Comment on above: Performed By: #### C BC, CMP, 90637-2, 2777-1, 3084-1, 2731-8, 75311-7, HA1C #### [facility] ([id number]) [address] [place] [address] Protein [Mass/Vol] 7.0 g/dL Normal 6.0-8.0 [facility] Comment on above: Performed By: #### C BC, CMP, 15433-7, 2777-1, 3084-1, 2731-8, 06698-2, HA1C #### [facility] ([id number]) [address] [place] [address] Sodium [Moles/Vol] 142 mmol/L Normal 134-146 [facility] Comment on above: Performed By: #### C BC, CMP, 36762-9, 2777-1, 3084-1, 2731-8, 69440-2, HA1C #### [facility] ([id number]) [address] [place] [address] Urea nitrogen [Mass/Vol] 23 mg/dL Normal 5-27 [facility] Comment on above: Performed By: #### C BC, CMP, 06351-8, 2777-1, 3084-1, 2731-8, 43569-9, HA1C #### [facility] ([id number]) [address] [place] [address] HGB A1C (GLYCO-HGB)on 2023 Glucose [Mass/Vol] 108 mg/dL Normal [facility] Comment on above: Performed By: #### C MP, 20147-5, THYR #### [facility] ([id number]) [address], [address] [place] [address] HbA1c (Bld) [Mass fraction] 5.4 % Normal 4.4-5.6 [facility] Comment on above: Result Comment: NOTE ADA Guidelines Result HgbA1c Normal : less than 5.7 % Prediabetes : 5.7 % to 6.4 % Diabetes : > 6.4 % Use with caution in patients with abnormal hemoglobin variants as the half-life of red blood cells and in vivo glycation rates are affected. Performed By: #### C MP, 71710-2, THYR #### [facility] ([id number]) [address] [place] [address] MAGNESIUMon 07-21-2024 Magnesium [Mass/Vol] 2.1 mg/dL Normal 1.8-2.6 [facility] Comment on above: Performed By: #### C BC, CMP, 64513-2, 2777-1, 3084-1, 2731-8, 48062-6, HA1C #### [facility] ([id number]) [address] [place] [address] PHOSPHORUSon 07-21-2024 Phosphate [Mass/Vol] 4.3 mg/dL Normal 2.4-4.9 [facility] Comment on above: Performed By: #### C BC, CMP, 50585-0, 2777-1, 3084-1, 2731-8, 52248-8, HA1C #### [facility] ([id number]) [address] [place] [address] Parathyrin.intact [Mass/Vol] on 07-21-2024 PTH INTACT 29 pg/mL Normal 12-88 [facility] Comment on above: Performed By: #### C BC, CMP, 39492-6, 2777-1, 3084-1, 2731-8, 55958-5, HA1C #### [facility] ([id number]) [address] [place] [address] URIC ACIDon 07-21-2024 Urate [Mass/Vol] 5.1 mg/dL Normal 2.6-7.2 [facility] Comment on above: Performed By: #### C BC, CMP, 94960-9, 2777-1, 3084-1, 2731-8, 80596-5, HA1C #### [facility] ([id number]) [address] [place] [address] Vitamin D+Metabolites [Mass/ Vol]on 07-21-2024 VITAMIN D 25 HYD TOT 59.8 ng/mL Normal 30-100 [facility] Comment on above: Result Comment: Vitamin D status 25 [place] Vitamin D Deficiency <20 ng/mL Insufficiency 20-29 ng/mL Sufficiency 30-100 ng/mL Toxicity >100 ng/mL NOTE: A pediatric reference range has not been established by the land management forester of this kit. The [place] [employer] recommends a Vitamin D level of = or >20ng/mL in infants and children. Performed By: #### [place], [address]-9, THYR #### [facility] ([id number]) [address], [address] [place] [address] XR KNEE RT 3 VWSon 4 XR KNEE RT 3 VWS XR KNEE RT 3 VWS History: Chronic right knee pain Exam/Technique: 3 views of the right knee. Comparison: None available. Findings: There is no evidence of fracture, malalignment or acute bony abnormality. No perceivable joint effusion. Chondrocalcinosis demonstrated with medial more so than lateral joint space narrowing. IMPRESSION: * Joint space narrowing and chondrocalcinosis without joint effusion or acute bony pathology. Finalized by Fransico Ramon DO on 01/31/2024 3:29 PM Normal [facility] COMPREHENSIVE METABOLIC PANE Gerard 01-16-2024 Albumin [Mass/Vol] 4.4 g/dL Normal 3.2-5.3 [facility] Comment on above: Performed By: #### Cori PUGH 02757-3, THYR #### [facility] ([id number]) [address], [address] [place] [address] ALP [Catalytic activity/Vol] 77 U/L Normal 39-130 [facility] Comment on above: Performed By: #### Camelia Persaud MP31-1, THYR #### [facility] [facility] ([id number]) [address], [address] [place] [address] ALT [Catalytic activity/Vol] 23 U/L Normal 0-31 [facility] Comment on above: Performed By: #### Cori PUGH 71649-6, THYR #### [facility] ([id number]) [address], [address] [place] [address] Anion gap [Moles/Vol] 10 mmol/L Normal 5-15 [facility] Comment on above: Performed By: #### Cori PUGH 86037-3, THYR #### [facility] ([id number]) [address], [address] [place] [address] AST [Catalytic activity/Vol] 27 U/L Normal 0-41 [facility] Comment on above: Performed By: #### Camelia Persaud MP31-1, THYR #### [facility] ([id number]) [address], [address] [place] [address] Bilirubin [Mass/Vol] 0.9 mg/dL Normal 0.3-1.2 [facility] Comment on above: Performed By: #### Cori PUGH 82554-9, THYR #### [facility] ([id number]) [address], [address] [place] [address] Calcium [Mass/Vol] 9.4 mg/dL Normal 8.5-10.5 [facility] Comment on above: Performed By: #### C LEXY, 24445-8, THYR #### [facility] ([id number]) [address], [address] [place] [address] Chloride [Moles/Vol] 108 mmol/L Normal 98-109 [facility] Comment on above: Performed By: #### Cori PUGH, 63323-8, THYR #### [facility] ([id number]) [address], [address] [place] [address] CO2 [Moles/Vol] 22 mmol/L Normal 22-32 [facility] Comment on above: Performed By: #### Cori PUGH, 69856-7, THYR #### [facility] ([id number]) [address], [address] [place] [address] Creatinine [Mass/Vol] 0.97 mg/dL Normal 0.40-1.00 [facility] Comment on above: Result Comment: METH OD TRACEABLE TO IDMS STANDARD Performed By: #### Cori PUGH, 39581-8, THYR #### [facility] ([id number]) [address], [address] [place] [address] GFR/1.73 sq M.predicted among non-blacks MDRD (S/P/Bld) [Vol rate/Area] 60 mL/min/{1.73_m2} Normal >59 [facility] Comment on above: Result Comment: Reported eGFR is based on the CKD-EPI 2020 equation that does not use a race coefficient. Performed By: #### Cori PUGH, 95588-7, THYR #### [facility] ([id number]) [address], [address] [place] [address] Glucose [Mass/Vol] 112 mg/dL High 65-99 [facility] Comment on above: Performed By: #### Cori PUGH, 94299-4, THYR #### [facility] ([id number]) [address], [address] [place] [address] Potassium [Moles/Vol] 4.8 mmol/L Normal 3.5-5.0 [facility] Comment on above: Performed By: #### C LEXY, 65404-0, THYR #### [facility] ([id number]) [address], [address] [place] [address] Protein [Mass/Vol] 6.8 g/dL Normal 6.0-8.0 [facility] Comment on above: Performed By: #### Cori PUGH, 11979-7, THYR #### [facility] ([id number]) [address], [address] [place] [address] Sodium [Moles/Vol] 140 mmol/L Normal 134-146 [facility] Comment on above: Performed By: #### Cori PUGH, 42411-1, THYR #### [facility] ([id number]) [address], [address] [place] [address] Urea nitrogen [Mass/Vol] 31 mg/dL High 5-27 [facility] Comment on above: Performed By: #### Cori PUGH, 39543-8, THYR #### [facility] ([id number]) [address], [address] [place] [address] Comprehensive metabolic pane gerard 01-16-2024 Albumin [Mass/Vol] 4.4 g/dL 3.2 - 5.3 g/dL [facility] ALP [Catalytic activity/Vol] 77 U/L 39 - 130 U/L [facility] ALT No additional P-5'-P [Catalytic activity/Vol] 23 U/L 0 - 31 U/L [facility] Anion gap [Moles/Vol] 10 mmol/L 5 - 15 mmol/L [facility] AST [Catalytic activity/Vol] 27 U/L 0 - 41 U/L [facility] Bilirubin [Mass/Vol] 0.9 mg/dL 0.3 - 1.2 mg/dL [facility] Calcium [Mass/Vol] 9.4 mg/dL 8.5 - 10. 5 mg/dL [facility] Chloride [Moles/Vol] 108 mmol/L 98 - 109 mmol/L [facility] CO2 [Moles/Vol] 22 mmol/L 22 - 32 mmol/L [facility] Creatinine [Mass/Vol] 0.97 mg/dL 0.40 - 1.00 mg/dL [facility] Comment on above: METHOD TRACEABLE TO [facility] STANDARD eGFR (CKD-EPI)non-race dependent 60 - PINF [facility] Comment on above: Reported eGFR is based on the CKD-EPI 2020 equation that does not use a race coefficient. Glucose [Mass/Vol] 112 mg/dL High 65 - 99 mg/dL [facility] Potassium [Moles/Vol] 4.8 mmol/L 3.5 - 5.0 mmol/L [facility] Protein [Mass/Vol] 6.8 g/dL 6.0 - 8.0 g/dL [facility] Sodium [Moles/Vol] 140 mmol/L 134 - 146 mmol/L [facility] Urea nitrogen [Mass/Vol] 31 mg/dL High 5 - 27 mg/dL [facility] HGB A1C (GLYCO-HGB)on 2023 Glucose [Mass/Vol] 111 mg/dL Normal [facility] Comment on above: Performed By: #### Cori PUGH, 63675-3, THYR #### [facility] ([id number]) [address] [place] [address], [address] [place] [address] HbA1c (Bld) [Mass fraction] 5.5 % Normal 4.4-5.6 [facility] Comment on above: Result Comment: NOTE ADA Guidelines Result HgbA1c Normal : less than 5.7 % Prediabetes : 5.7 % to 6.4 % Diabetes : > 6.4 % Use with caution in patients with abnormal hemoglobin variants as the half-life of red blood cells and in vivo glycation rates are affected. Performed By: #### Cori PUGH, 66059-3, THYR #### [facility] ([id number]) [address] [facility] [place] [address] Hemoglobin A1con 01-16-2024 Average glucose Estimated from glycated hemoglobin (Bld) [Mass/Vol] 111 mg/dL [facility] HbA1c (Bld) [Mass fraction] 5.5 % 4.4 - 5.6 % [facility] Comment on above: NOTE ADA Guidelines Result HgbA1c Normal : less than 5.7 % Prediabetes : 5.7 % to 6.4 % Diabetes : > 6.4 % Use with caution in patients with abnormal hemoglobin variants as the half-life of red blood cells and in vivo glycation rates are affected. [facility] Lipid 1996 panelon Cholesterol [Mass/Vol] 128 mg/dL Low 150 - 200 mg/dL [facility] [employer] Cholesterol in HDL [Mass/Vol] 38 mg/dL Low 39 - PINF mg/dL [facility] Comment on above: HDL <40 mg/dL - High Risk HDL > or = 40mg/dL- Desirable HDL >60 mg/dL - Negative Risk Cholesterol in LDL [Mass/Vol] 43 mg/dL NINF - 130 mg/dL [facility] Comment on above: LDL <100 mg/dL - Desirable LDL >160 mg/dL - High Risk Cholesterol in VLDL [Mass/Vol] 47 mg/dL High 0 - 30 mg/dL [facility] Cholesterol.total/C holesterol in HDL [Mass ratio] 3.4 {ratio} 1.0 - 5.0 [facility] Triglyceride [Mass/Vol] 237 mg/dL High 27 - 150 mg/dL [facility] Cholesterol [Mass/Vol] 128 mg/dL Low 150-200 [facility] Comment on above: Performed By: #### Cori PUGH, 50826-9, THYR #### [facility] ([id number]) [address], [address] [place] [address] Cholesterol in HDL [Mass/Vol] 38 mg/dL Low >39 [facility] Comment on above: Result Comment: HDL <40 mg/dL - High Risk HDL > or = 40mg/dL- Desirable HDL >60 mg/dL - Negative Risk Performed By: #### Cori PUGH, 57679-3, THYR #### [facility] ([id number]) [address], [address] [place] [address] Cholesterol in LDL [Mass/Vol] 43 mg/dL Normal <130 [facility] Comment on above: Result Comment: LDL <100 mg/dL - Desirable LDL >160 mg/dL - High Risk Performed By: #### Cori PUGH, 24238-5, THYR #### [facility] ([id number]) [address], [address] [place] [address] Cholesterol in VLDL [Mass/Vol] 47 mg/dL High 0-30 [facility] Comment on above: Performed By: #### Cori PUGH, 44446-8, THYR #### [facility] ([id number]) [address], [address] [address] CHOLESTEROL:HDL 3.4 Normal 1.0-5.0 [facility] Comment on above: Performed By: #### Cori PUGH, 16535-4, THYR #### [facility] ([id number]) [address], [address] [place] [address] Triglyceride [Mass/Vol] 237 mg/dL High 27-150 [facility] Comment on above: Performed By: #### Cori PUGH, 70954-7, THYR #### [facility] ([id number]) [address] [facility], [address] [place] [address] No Panel Informationon 01-15 Interpretation and review of laboratory results Abnormal [facility] THYROID PROFILEon 01-16-2024 Free T4 [Mass/Vol] 1.26 ng/dL Normal 0.61-1.60 [facility] Comment on above: Performed By: #### Cori PUGH, 60844-4, THYR #### [facility] ([id number]) [address] [facility], [address] [place] [address] TSH 1.98 uIU/mL Normal 0.49-4.67 [facility] Comment on above: Performed By: #### Cori PUGH, 00507-9, THYR #### [facility] ([id number]) [address] [facility], [address] [place] [address] Thyroid profile includes TSH FT4on 01-16-2024 Free T4 [Mass/Vol] 1.26 ng/dL 0.61 - 1. 60 ng/dL [facility] TSH Qn 1.98 m[IU]/L [facility] Provider Orderson 03-27-2023 Provider Orders [id number]#1.[address] [facility] Coding Summaryon 03-22-2023 Coding Summary HTMLBase 64 LpepnqlyRMd4eFg+PGhlYW Q+AY8FDNSxG94zqTErcM0t S3YEDAzJYwafJRWPQJtKHt UojqFtLX2doPPwEZFd IC8+RZ9aHIKtIisldNQmd7 C3wPI2W43xvd6jYUpttJF1 UXQxSwWfbsudu2hmdNg4EG cuNmluOyBt LCOjwF55IYN3yC98Qw46kK DlbPDcd6rltFd5XaSgOYEi OCL7lRdcQDyow6HyAFZhA0 8weUQwa6N7 SJBsoXsznSRaGsGroJK8xQ 9uJYyraunxv7rblvhuAoi6 eq39bZFzq2T7pOO1C2Uixl Z0DZSvjVXl YtqpfYMAdB6jxymfi9ebvn laRiRkERMwQWq5UKg3GXGe yByvHzKkIW35COH4EFYztl LhH9KdGXJq cObaYcY9i3N1Bx4OB2BIFi zxY4TGXVRZSUnmiPB+PC90 vg02B7KjDbcpGvg8ARPyMI Z2gKU4kE8w BTOhXYnuw8S4kEA7P7Ivam Tpft8ep1osMAYgLDejJ32i rVMaz5D4FKCxkZF5BXFebT yvHdWzgX39 Oyc+HFQlwCfcx7PyXunqt6 fwm4uckGm5VemaSDEznjLk iQthPCK5c7BpEe9iBPHxiO X6rJO1rM7q AwBjJkI9KQmkV455HoGorI GoMrgbU41yT0MrgUC+PHRy Dww2EROrwLibUU7oM7GgBL RpbmctbGVm kLqxLE4eZMIucdixMZZhrG 8yESCnI9m4XdVdVoR8QSgz S0LyITFeteyzEw27kS0pPa EoPvH3SAqg Q1PadhO7BUNlyZAqGFzvTI T8P99uz2V3XVZfCVSbRLK8 hFP9xA5akTylvkqsqTHteY sgdmVydGlj NGttTFzuR584YKTkrHdiGw NvZGluZyBEYXRlOiAgMDYv MTUvMjAyMzwvdGQ+PHRkIH L1wPkpBJVk fBKdFIozRq1psIylyYngVE 8bMFZbhykhRTBujP6mJEMg gIFfuKezJZ8fWVMsoysvu0 01XaPcHPK1 JODpeWGpF8CxmE5zKpXeDB NrUOUvI3CwcMCqTVrpZ198 LJebRdM7SFPwvkOuB8JiMO FsaWduOiB0 v4V2Uv0Ec9DpkygiW5FgjT HyEhJkAvkoWOw9M1PgKycc dHI+EG82DNMmKE61RRq5RX J4xPecIXmt AHDmF1VoyP6dFiCyKDKpNJ RkOyc+PHRhYmxlIHdpZHRo ANxhGSGgMyUcyXqhDJ1iTi 9yZGVyLWNv lFkfkUSeLfEhs3riDXMjHG irWA0bbDvtH9FvyON5HTEe x2n7Rh02W49lQ6PsvEJ+PG VbcQL2xMR1 dY6lQrZpPzF4JLrgK326Yp GjyIGoTpdfa4pjq6nwlPh7 YeX7EDTxuxKvyNnhRQU1y2 VbCn48X72w IHdpZHRoPSIxNSUiIHZhbG hcvs7xmZ9fPv4+PGNvbCB3 pEP6xJ5mDvMkRsM7BWlwR3 49InRvcCIv Skwmf2nbo5lbcDz9HyHhAJ RaygIuiTqvCGW3s4DpIt00 N1CxjOmyq6NjRsb6hn09wO Nig4Z5kXL1 A0DkYPMgvoqplWKelKjkVU 3zRWPfzoqdKHNkjU0bCGCv U0h7ThScSuA1ZAxmQ4Fain K2WPVwnPDr WNRjoLTMaW8ueiscw0wqdw rqYfQnZJBeTJt7NJp3KNNi rExdJhMtBYV1FpL3QZP9gF BpiX1mhLpj wkvvhE1iXtr+GIR0yXKplJ ATSC2lFzrkwAV+PHRkIHN0 nExmWOzbVCVqbC4pFOHvV8 r5VxMmZlK9 CZudI8HtqlD4VQMguLIiHQ PxqERSgF1bfzadt3reqsjn OxBtVLLxOKq0KOs4JDXorA duOiBsZWZ0 SeQ9FCC7rZUraU0siHsbny wozT8pQps+QmlydGggRGF0 YVo0M2RnUho7ZGVrkYwrZI 0ncGFkZGlu Bx0asIcevSbyGE9dFYGdzu tve077RiQov6esWOSjuAFz MBucZRG8X91fa6R2FVXsEC CqFVM2rHF1 dA8fpSnhvkhaeUZksByegu ZhtSckVBqqNTdwE651GEZn eKwdCvUtGQl7B0VaWln0IR IxpJwdQC9a xNIyBMoqIy2ngCdvyVmjNT 2mYJTtoevcv064SfOjz3sf HFVbbSTzXNetVPZ3W42ha0 L0NUFrEEYb YQN8yAD3cE3ieCebnxrnrK VmdDsgdmVydGljYWwtYWxp F294UQRpvRpvEnVphKz0T2 GsKtm3JHVk pHtcKO6tqLCvKXquYf9ryK sskJcfHM6qAAViuxksv072 HnMaw9jkWNJykGKxORscHA N6U46no5Y8 ZZTiUCPdMNM9rFN9vV9lwL lnbjogbGVmdDsgdmVydGlj JJzeGQfgR873NLTlpZwuAs BhdGllbnQg GZpuJDp2Q7EjEifrfED+PC 90ZDJdFG11iCAcjHTvy6mp sUx0ChUdSKQoMQR8gNfjKS lid0MtSCZf L64klRCcs4O8WWBktNlfxX GjYzTysRZ8bP5uAJqtuwxb c3ygaychCvmbz4gjxt66pE 38L74cKJbs ZHRoPSIzMCUiIHZhbGlnbj 8scR6lTb1+SAOnmYR1pTZ1 yU2kWJKtOsM8RMjhX640Id RvcCIvPjxj o8xgd2suvQq5GnQ8AWWyux WoeTioATU9t1SwWh83I68g IHdpZHRoPSIyMCUiIHZhbG dclt0osV1g Ii8+LQWeeKY5oZO1eS0uSk BhUoH8NRhrR236CuHvySJe HmqiN24xI3VbeCU+PHRyPj d1TFTxuVzn MK6dfAWqOSnyBx2uGST4Ow DuVyRdREpxQ8TbKUUizimv ujhqjMK9KZWfVOWzoH56Wd 9udDogMTBw qJPPmE3uohvcz1uacgghDl MnMJLhJXo7LUj1OIHxySyb EkWaKNI1JxL3XSX6dAZvzX 1hbGlnbjog vB9xG5EiGWEjrscgCb51rR 2gKdYzWqF8VNkyVuq+V0FS DjzXINPPYE3sI8FKZW92IG 53tYKio2Q8 tKW3F2WnKOMeqwnkojmqbK F1IWCkTFChoA58iTJnVHfa Pr3si6J2w271VJGxTZMpcO 88Fz2pyGlb TDUjbKNFcL0tdwkie3dqun rlFhBcJCHjLKy5UQa8CQXq uAdkNqNaZYD9BsQ0SVP7jR VfyM2doHpr dpyhmC9yAqg+MTIvMDkvMT l6GqwvcGU+MCBmSQB0cWlc AVouKALwbK2iSRMtI3k5Cz RfMsB9AIej B3HaBXLmvnhhIy30cM9yAt RyMrX1CChrW4MtpnS8WAGt eMHhFFxuHMN2Z63bd4R0KM MwMDAwMDA7 oQA6jI4peFnzeyqugHUliM bfgkVtlRiqSKmkTJkwG678 EIMdcVbdCrb4JGcdXVKnLJ 38HL54wRUb r9T5xAD5J8EwZVSfqcsbxk zbbEW6IGXfUVVfdF38mGDe QSptEg1gp4H4k016FTZaKF XkmX66Xi0l zSneNKFrsYFLhZ8ggwpmm5 uobytgIwGpFFIeZGf6VOs3 BHVvaSmzTzGhZQE4YyT0QS P8tFNgiJ4w uWkzqcautM3uIjf+RkVNQU tUKC48QQ57oEUku2E2fMO0 N7GiKPPbbdzcvdcttSB3SJ KyHXEngQ15 tPXqUTxhGz5rg5M8c180QV LkRLNdbZ53Nk7iuPssNWXa bAHNiM5gztevg3ivolxpMj AwMDAwMDt0 UMd9IHBxpTjkQkYgTWB9As J4UVI0mSNqcD7uxSltfyde xU9qWfh+DLK4FHB6inlaic c6D8QlUgqe dHI+KW84CYEvWY54yEAhmA Gzx3msqQb1XiYuHCNfIIC3 oLviOZjrc9PpJPJyG24vuD Kcf3D2JSAt tDblwUEsWuDliDQ4fD7jTI dygfzxu0gbcmpbBqxbi9fy bt06qM26U92cSFezGPBtLQ IzMCUiIHZh zVsdli3jgE2qGg1+PGNvbC X2dGM0cK9oGyHbKzD6AOmi K143QfAvdUObOvcun0fpd5 mztJt8JcCh BWEvduYgnXsaJRV3w1ArJc 65T80zBRtdCAKpDLXnWORk GKRgzQmhcz9imY2fOc3+PC 8qu3fnwh17 aN87nOR+FKAoSLL4oIagQG ajFUNoqL8hSVaaMxU1CXJb YzZydK52bHUyUVaqFf9ygJ idoKvgAH4c PWVttgddy387XuLgh0tiCW VimWUpKIrpKOZ2S14mo5T4 GYGxSWNaMFL2wGK7lD4ncO lnbjogbGVm dDsgdmVydGljYWwtYWxpZ2 57GKYtnFmwLnFouOPcM5qs pmTSEP8sLbwgzEU+PHRkIH I4gUfbTXmx XURmuO0iNSXzJ5j1UmBlRk Q1TPacB1GtmbA1RRIjgUWf WMRleDVKnG6mkjrgb6huaw ogIzAwMDAw DLz5JTc3JVXvcVqsKdZuYR Z9SxC6OAT8kTUdsL7pyNjx czsduX8lYlw+RklOOjwvdG Q+PHRkIHN0 tKwaNNgaZTGthT0sORTnN3 k5AoWrObS2XIeuG3JyzwM0 FLUviSSrTXFqvZGLfB6ahz fcn4airsds JeKcKKMnMOb5DHt1LKFqqJ zoQpSlVJA8PsV0GQD4pNEh pN4caXpolmiriE9zZzc+TV JOOjwvdGQ+ ELGyNFG8vVkkYNyiQOIuqS 8tJCInP7q7LoNjXvC7YQjb T7GtrdM5IEGfuFAjYJDjmH ZIkC8mkkdl i3dllnqsAnOgZQVlQAt8LZ o0AGHhmUciVuGsDMA2HeJ0 FFG6xYNyvA7jjPidpiwnuN 9wOyc+UGF5 XZJ4HA63MM31Y9HrIjwjmF FibGU+PHRhYmxlIHdpZHRo EIzjSNNgYtNstNarSB4jMt 9yZGVyLWNv bGx (more content not included)... [facility] Consent Formson 03-22-2023 Consent Forms [id number]#1.0 [facility]23 Photograph [id number]#1. 00[facility] Telemetry Stripson Telemetry Strips [id number]#[id number] [facility] Inpatient Patient Summaryon 03-21-2023 Inpatient Patient Summary [facility] [address] [place] [address] Patient Discharge Instructions Name: ANANDA IZAGUIRRE : 1945 Patient Address: [address] [place] [address] Primary Care Provider: Name: MATT WEBB After you are discharged if you find you have any questions, please, call [phone] ext [phone] to speak to a nurse. Discharge Diagnosis: 1:Personal history of colonic polyps Prescription Information: If you have been given a prescription for narcotics, seek immediate medical attention if you have any difficulty breathing or any sudden status changes such as confusion and sleepiness. If you or anyone you know is experiencing suicidal thoughts, mental health, alcohol and/or drug addiction problems; contact the [facility] 30/04 Crisis Hotline -Text 4HSFR us [phone]. If you received any narcotics, sedation, or any other medication that causes drowsiness for the next 24 hours, unless otherwise directed: ? Do not drive a car. ? Do not operate machinery such as power tools, lawn mowers, drills, sewing machines, or stoves ? Avoid alcoholic beverages and drugs for allergies, nerves, or sleep ? Do not make important personal or business decisions or sign any legal documents [facility] would like to thank you for allowing us to assist you with your healthcare needs. The following includes patient education materials and information regarding your injury/illness. ANANDA IZAGUIRRE has been given the following list of follow-up instructions, prescriptions, and patient education materials: Follow-up Instructions With: Address: When: Chris Garcia [address] [place] [address], [place] [address] Business (1) , only if needed With: Address: When: [place] [address] Business (1) Medications During the course of your visit, your medication list was updated with the most current information. The details of those changes are reflected below: Medications to Continue That Have Not Changed Other Medications amLODIPine (amLODIPine 10 mg oral tablet) 1 tab(s) Oral every day. Refills: 2. aspirin (aspirin 81 mg oral tablet) 1 tab(s) Oral every day. bisoprolol-hydrochloro thiazide (bisoprolol-hydrochlor othiazide 10 mg-6.25 mg oral tablet) 1 tab(s) Oral every day. Refills: 3. cetirizine (ZyrTEC 10 mg oral tablet) 1 tab(s) Oral every day as needed for allergy symptoms. Refills: 0. cholecalciferol (Vitamin D3 1000 intl units oral capsule) 2 cap(s) Oral every day. fenofibrate (fenofibrate 54 mg oral tablet) 1 tab(s) Oral every day. Refills: 3. levothyroxine (levothyroxine 75 mcg (0.075 mg) oral tablet) 1 tab(s) Oral every day. Refills: 3. losartan (losartan 100 mg oral tablet) 1 tab(s) Oral every day. meclizine (meclizine 12.5 mg oral tablet) 1 tab(s) Oral 3 times a day as needed for dizziness. multivitamin (Multivitamin, generic) 1 tab(s) Oral every day. omega-3 polyunsaturated fatty acids ([place]-3 oral capsule) 1 tab(s) Oral every day. pantoprazole (pantoprazole 40 mg oral delayed release tablet) 1 tab(s) Oral every day. Refills: 3. pravastatin (pravastatin 20 mg oral tablet) 1 tab(s) Oral every day. Refills: 2. sucralfate (Carafate 1 g oral tablet) 1 tab(s) Oral four times a day (before meals and at be. Refills: 0. ubiquinone (Q-Sorb Co Q-10 oral capsule) 1 cap(s) Oral every day. It is important to always keep an active list of medications available so that you can share with other providers and manage your medications appropriately. As an additional courtesy, we are also providing you with your final active medications list that you can keep with you. amLODIPine (amLODIPine 10 mg oral tablet) 1 tab(s) Oral every day. Refills: 2. aspirin (aspirin 81 mg oral tablet) 1 tab(s) Oral every day. bisoprolol-hydrochloro thiazide (bisoprolol-hydrochlor othiazide 10 mg-6.25 mg oral tablet) 1 tab(s) Oral every day. Refills: 3. cetirizine (ZyrTEC 10 mg oral tablet) 1 tab(s) Oral every day as needed for allergy symptoms. Refills: 0. cholecalciferol (Vitamin D3 1000 intl units oral capsule) 2 cap(s) Oral every day. fenofibrate (fenofibrate 54 mg oral tablet) 1 tab(s) Oral every day. Refills: 3. levothyroxine (levothyroxine 75 mcg (0.075 mg) oral tablet) 1 tab(s) Oral every day. Refills: 3. losartan (losartan 100 mg oral tablet) 1 tab(s) Oral every day. meclizine (meclizine 12.5 mg oral tablet) 1 tab(s) Oral 3 times a day as needed for dizziness. multivitamin (Multivitamin, generic) 1 tab(s) Oral every day. omega-3 polyunsaturated fatty acids ([place]-3 oral capsule) 1 tab(s) Oral every day. pantoprazole (pantoprazole 40 mg oral delayed release tablet) 1 tab(s) Oral every day. Refills: 3. pravastatin (pravastatin 20 mg oral tablet) 1 tab(s) Oral every day. Refills: 2. sucralfate (Carafate 1 g oral tablet) 1 tab(s) Oral four ti (more content not included)... [facility] Endo Intraoperative Record [facility] Endo Intra-Op Record Summary Primary Physician: Chris Garcia MD Finalized Date/Time: 03/21/23 10:38:03 Pt. Name: ANANDA IZAGUIRRE./Sex: 1945 FEMALE Med Rec #: [id number] Physician: Chris Garcia MD Financial #: [id number] Pt. Type: D Room/Bed: / Admit/Disch: 03/21/23 08:58:28 - Institution: Case Times EN MAGR Entry 1 Patient In Room Time 03/21/23 09:59:00 Out Room Time 03/21/23 10:36:00 Anesthesia Start Time 03/21/23 10:07:00 Stop Time 03/21/23 10:33:00 Surgery Start Time 03/21/23 10:10:00 Stop Time 03/21/23 10:33:00 Last Modified By: Mona Tom RN 03/21/23 10:34:43 General Comments: [id number] [id number] Case Attendance EN MAGR Entry 1 Entry 2 Entry 3 Case Attendee Chris Garcia MD RN, Sylvia Lyn RN Role Performed Surgeon - Primary Big Data Analytics Lead Big Data Analytics Lead Time In 03/21/23 09:59:00 03/21/23 09:59:00 03/21/23 09:59:00 Time Out 03/21/23 10:36:00 03/21/23 10:36:00 03/21/23 10:36:00 Procedure Colonoscopy Colonoscopy Colonoscopy Last Modified By: Negro VENTURA, Mona Tom RN, Mona Syed RN 03/21/23 10:34:44 03/21/23 10:34:44 03/21/23 10:34:44 Entry 4 Case Attendee Shanda ROLLER CLEANER/Gemini [employer] ROLLER CLEANER Role Performed Scrub Personnel Time In 03/21/23 09:59:00 Time Out 03/21/23 10:36:00 Procedure Colonoscopy Last Modified By: Mona Tom RN 03/21/23 10:34:44 Surgical Procedures EN [facility]R Pre-Care Text: A.20 Verifies operative procedure, surgical site, and laterality Im.150 Develops individualized plan of care Entry 1 Procedure Colonoscopy Primary Procedure Yes Primary Surgeon Chris Garcia MD Surgeon Comment COLONOSCOPY-HISTORY OF POLYPS Start 03/21/23 10:10:00 Stop 03/21/23 10:33:00 Anesthesia Type Conscious Sedation Surgical Service General Wound Class Clean-Contaminated Technique Details Closure Technique N/A Entire procedure No was performed via laparoscope or robotic assistance Last Modified By: Mona Tom RN 03/21/23 10:34:48 Post-Care Text: O.730 The patient's care is consistent with the individualized perioperative plan of care General Case Data EN [facility] Pre-Care Text: A.350.1 Classifies surgical wound Entry 1 Case Information OR [facility] Endo Room Case Level Level 3 Wound Class Clean-Contaminated Specialty General ASA Class 3 Diagnosis Preop Diagnosis HISTORY OF POLYPS Postop Same As Preop No Postop Diagnosis no abnormal findings Blunt or No Is the procedure No penetrating injury considered occured prior to Emergent/Urgent? the start of the procedure: Last Modified By: Mona Tom RN 03/21/23 10:35:28 Post-Care Text: O.760 Patient receives consistent and comparable care regardless of the setting Time Out EN MAGR Entry 1 Time out date/time 03/21/23 10:06:00 All team members Yes have introduced themselves by name and role Surgeon, Yes Surgeon reviews Yes anesthesia, nurse critical or confirm patient, unexpected steps, site, procedure operative duration, anticipated blood loss Anesthesia team No Nursing team Yes reviews any reviews sterility patient-specific (including concerns indicator results) and equipment issues/concerns Antibiotic Last Modified By: Mona Tom RN 03/21/23 10:10:21 Patient Positioning EN [facility]R Pre-Care Text: A.280 Identifies baseline musculoskeletal status Im.40 Positions the patient Im.80 Applies safety devices Entry 1 Procedure Colonoscopy Body Position Lateral Left Arm Position Resting at Side Right Arm Position Resting at Side Left Leg Position Extended Right Leg Position Extended Feet Uncrossed? Yes Press Points Checked Yes Additional LATERAL LEFT SIDE Positioning Device Pillow Information Outcome Met (O.80) Yes Last Modified By: Mona Tom RN 03/21/23 10:03:06 Post-Care Text: E.290 Evaluates musculoskeletal status O.80 Patient is free from signs and symptoms of injury related to positioning Departure from OR EN MAGR Entry 1 Present on Depart Oxygen Via Stretcher Post-op Destination PACU II Skin DFO Condition Dry Description Condition Warm Description Report Given To Maddie Bettencourt RN Airway Maintenance Patient Status Stable Oxygen in Use? Yes Airway Device Nasal cannula Flow Rate 3 L/min Last Modified By: Mona Tom RN 03/21/23 10:03:21 Case Comments Finalized By: Mona Tom RN Document Signatures Signed By: Mona Tom RN 03/21/23 10:38 [facility] MAGR Endo Postoperative South rdon 03-21-2023 MAGR Endo Postoperative Record MAGR Endo Phase II Record Summary Primary Physician: Chris Garcia MD Finalized Date/Time: 03/21/23 11:35:39 Pt. Name: ANANDA IZAGUIRRE D.O.B./Sex: 1945 FEMALE Med Rec #: [id number] Physician: Chris Garcia MD Financial #: [id number] Pt. Type: D Room/Bed: / Admit/Disch: 03/21/23 08:58:28 - Institution: Phase II Case Times EN MAGR Pre-Care Text: Patient is free from s/s of injury. Patient remains free from compromised physical state related to surgery or anesthesia. Patient comfort maintained. Patient/family verbalize understanding of discharge instructions. Entry 1 In PACU II 03/21/23 10:38:00 Discharge from PACU 03/21/23 11:32:00 II Last Modified By: Maddie Bettencourt RN 03/21/23 11:35:36 Post-Care Text: The patient remains free from s/s of injury. Patient's vital signs stable, circulation maintained, return to preop mental and physical status, opsite/dressing intact, minimal or absent nausea and vomiting, tolerates po intake. Patient verbalizes adequate pain control. Patient/family express understanding of discharge instructions. General Comments: Stable to discharge home. Finalized By: Maddie Bettencourt RN Document Signatures Signed By: Maddie Bettencourt RN 03/21/23 11:35 [facility] MAGR Endo Preoperative Recor don 03-21-2023 MAGR Endo Preoperative Record MAGR Endo Pre-Op Record Summary Primary Physician: Chris Garcia MD Finalized Date/Time: 03/21/23 11:36:30 Pt. Name: ANANDA IZAGUIRRE/Sex: 1945 FEMALE Med Rec #: [id number] Physician: Chris Garcia MD Financial #: [id number] Pt. Type: D Room/Bed: / Admit/Disch: 03/21/23 08:58:28 - Institution: Pre-Op Case Times EN MAGR Pre-Care Text: Patient will be optimally prepared for surgery. Patient is free from s/s of injury. Provide information to patient/family related to plan of care. Verify patient allergies. Confirm identity and verify consent before the operative or invasive procedure. Entry 1 Patient Arrival Time 03/21/23 09:07:00 Preop Departure 03/21/23 09:58:00 Last Modified By: Maddie Bettencourt RN 03/21/23 11:36:27 Post-Care Text: Patient is prepared mentally and physically and is ready for surgery. The patient remains free from s/s of injury. Patient/family express understanding of plan of care and participate in decisions affecting his or her perioperrative plan of care. Allergies documented appropriately. Patient identifiers and consent correct. General Comments: Reviewed for the next 24 hours not to do anything that requires concentration. Denies chest pain, shortness of breath or illnessess. Denies pacemaker/defib. Denies sleep apnea. Finalized By: Maddie Bettencourt RN Document Signatures Signed By: Maddie Bettencourt RN 03/21/23 11:36 Normal [facility] Patient Handouton 03-21-2023 Patient Handout Radiology Colonoscopy, Adult, Care After The following information offers guidance on how to care for yourself after your procedure. Your health care provider may also give you more specific instructions. If you have problems or questions, contact your health care provider. Findings: The scope was advanced the entire length of the colon. The prep was good. The exam was unremarkable. The area where the polyp was removed last year looks good. No other polyps were seen. What can I expect after the procedure? After the procedure, it is common to have: ? A small amount of blood in your stool for 24 hours after the procedure. ? Some gas. ? Mild cramping or bloating of your abdomen. Follow these instructions at home: Eating and drinking ? Drink enough fluid to keep your urine pale yellow. ? Follow instructions from your health care provider about eating or drinking restrictions. ? Resume your normal diet as told by your health care provider. Avoid heavy or fried foods that are hard to digest. Activity ? Rest as told by your health care provider. ? Avoid sitting for a long time without moving. Get up to take short walks every 1?2 hours. This is important to improve blood flow and breathing. Ask for help if you feel weak or unsteady. ? Return to your normal activities as told by your health care provider. Ask your health care provider what activities are safe for you. Managing cramping and bloating ? Try walking around when you have cramps or feel bloated. ? If directed, apply heat to your abdomen as told by your health care provider. Use the heat source that your health care provider recommends, such as a moist heat pack or a heating pad. ? Place a towel between your skin and the heat source. ? Leave the heat on for 20?30 minutes. ? Remove the heat if your skin turns bright red. This is especially important if you are unable to feel pain, heat, or cold. You have a greater risk of getting burned. General instructions ? If you were given a sedative during the procedure, it can affect you for several hours. Do not drive or operate machinery until your health care provider says that it is safe. ? For the first 24 hours after the procedure: ? Do not sign important documents. ? Do not drink alcohol. ? Do your regular daily activities at a slower pace than normal. ? Eat soft foods that are easy to digest. ? Take [id number] and prescription medicines only as told by your health care provider. ? Keep all follow-up visits. This is important. Contact a health care provider if: ? You have blood in your stool 2?3 days after the procedure. Get help right away if: ? You have more than a small spotting of blood in your stool. ? You have large blood clots in your stool. ? You have swelling of your abdomen. ? You have nausea or vomiting. ? You have a fever. ? You have increasing pain in your abdomen that is not relieved with medicine. These symptoms may be an emergency. Get help right away. Call 911. ? Do not wait to see if the symptoms will go away. ? Do not drive yourself to the hospital. Summary ? After the procedure, it is common to have a small amount of blood in your stool. You may also have mild cramping and bloating of your abdomen. ? If you were given a sedative during the procedure, it can affect you for several hours. Do not drive or operate machinery until your health care provider says that it is safe. ? Get help right away if you have a lot of blood in your stool, nausea or vomiting, a fever, or increased pain in your abdomen. This information is not intended to replace advice given to you by your health care provider. Make sure you discuss any questions you have with your health care provider. Document Revised: 05/17/2022 Document Reviewed: 05/17/2022 ElseAF83 Patient Education ? 2022 [employer] [facility] Progress Note - Nurseon 06-1 Progress Note - Nurse Pt aware need for a lifter/driver, NPO, and arrive at 0915 [Electronically Signed on: 03/20/2023 13:35 EDT] Maddie Bettencourt RN [Verified on: 03/20/2023 13:35 EDT] Maddie Bettencourt RN [facility] Progress Note - Nurseon 06-0 Progress Note - Nurse Pt called and informed OR cancelled for 03-09-23 and would need to call Dr. Garcia's office to be scehduled. [Electronically Signed on: 03/08/2023 14:17 EDT] Camila Bellamy RN [Verified on: 03/08/2023 14:17 EDT] Camila Bellamy RN [facility] LIPID PROFILEon 07-19-2022 CHOL-HDL RATIO NORM SEE BELOW Normal [facility] Comment on above: Result Comment: 3.3 - 4.4 LOW RISK 4.4 - 7.1 AVERAGE RISK 7.1 - 11.0 MODERATE RISK >11.0 HIGH RISK Performed By: #### C MP, LIPID #### [facility] [address] [address] [address] Ambrocio Johnson Cholesterol [Mass/Vol] 171 mg/dL Normal <=200 [facility] Comment on above: Performed By: #### C MP, LIPID #### [facility] [address] [address] [address] Ambrocio Johnson Cholesterol in HDL [Mass/Vol] 51 mg/dL Normal 40-60 [facility] Comment on above: Performed By: #### C MP, LIPID #### [facility] [address] [address] [address] Ambrocio Johnson Cholesterol in LDL [Mass/Vol] 87.4 mg/dL Normal [facility] Comment on above: Performed By: #### C MP, LIPID #### [facility] [address] [place] [address] Dr. Ambrocio Johnson Cholesterol.total/C holesterol in HDL [Mass ratio] 3.4 {ratio} Normal [facility] Comment on above: Performed By: #### C MP, LIPID #### [facility] [address] [address] [address] Ambrocio Johnson HDL NORMAL > or = 60 mg/dl - LO W CARDIOVASCULAR RISK <40 mg/dl - HIGH CARDIOVASCULAR RISK Normal [facility] Comment on above: Performed By: #### C MP, LIPID #### [facility] [address] [address] [address] Ambrocio Johnson LDL CALC NORMAL SEE BELOW Normal [facility] Comment on above: Result Comment: <100 mg/dl OPTIMAL 100 - 129 mg/dl NEAR OR ABOVE OPTIMAL 130 - 159 mg/dl BORDERLINE HIGH 160 - 189 mg/dl HIGH >190 mg/dl VERY HIGH Performed By: #### C MP, LIPID #### [facility] [address] [place] [address] Dr. Ambrocio Johnson Triglyceride [Mass/Vol] 163 mg/dL Critically high <=150 [facility] Comment on above: Performed By: #### C MP, LIPID #### [facility] [address] [place] [address] Dr. Ambrocio Johnson VLDL CALC 32.6 mg/dL Normal [facility] Comment on above: Performed By: #### C MP, LIPID #### [facility] [address] [place] [address] Dr. Ambrocio Johnson PROF 14(COMP METB)on 07-19- 022 Albumin [Mass/Vol] 4.2 g/dL Normal 3.4-5.[address] [facility] Comment on above: Performed By: #### C MP, LIPID #### [facility] [address] [place] [address] Dr. Ambrocio Johnson Albumin/Globulin [Mass ratio] 1.4 {ratio} Normal [facility] Comment on above: Performed By: #### C MP, LIPID #### [facility] [address] [place] [address] Dr. Ambrocio Johnson ALP [Catalytic activity/Vol] 63 U/L Normal 46-116 [facility] Comment on above: Performed By: #### C MP, LIPID #### [facility] [address] [place] [address] Dr. Ambrocio Johnson ALT [Catalytic activity/Vol] 21 U/L Normal 14-59 [facility] Comment on above: Performed By: #### C MP, LIPID #### [facility] [address] [place] [address] Dr. Ambrocio Johnson Anion gap [Moles/Vol] 18.1 mmol/L Normal [facility] Comment on above: Performed By: #### C MP, LIPID #### [facility] [address] [place] [address] Dr. Ambrocio Johnson AST [Catalytic activity/Vol] 24 U/L Normal 15-37 [facility] Comment on above: Performed By: #### C MP, LIPID #### [facility] [address] [place] [address] Dr. Ambrocio Johnson Bilirubin [Mass/Vol] 0.6 mg/dL Normal 0.2-1.0 [facility] Comment on above: Performed By: #### C MP, LIPID #### [facility] [address] [address] [address] Ambrocio Johnson Calcium [Mass/Vol] 9.4 mg/dL Normal 8.5-10.[address] [facility] Comment on above: Performed By: #### C MP, LIPID #### [facility] [address] [place] [address] Dr. Ambrocio Johnson Chloride [Moles/Vol] 106 mmol/L Normal 98-107 [facility] Comment on above: Performed By: #### C MP, LIPID #### [facility] [address] [place] [address] Dr. Ambrocio Johnson CO2 [Moles/Vol] 20.8 mmol/L Critically low 21.0-32.0 [facility] Comment on above: Performed By: #### C MP, LIPID #### [facility] [address] [place] [address] Dr. Ambrocio Johnson Creatinine [Mass/Vol] 1.24 mg/dL Critically high 0.55-1.02 [facility] Comment on above: Performed By: #### C MP, LIPID #### [facility] [address] [place] [address] Dr. Ambrocio Johnson EGFR-AF MEXICAN 51 mL/min/1.73m2 Critically low >=60 [facility] Comment on above: Performed By: #### C MP, LIPID #### [facility] [address] [place] [address] Dr. Ambrocio Johnson EGFR-NON AF MEXICAN 42 mL/min/1.73m2 Critically low >=60 [facility] Comment on above: Performed By: #### C MP, LIPID #### [facility] [address] [place] [address] Dr. Ambrocio Johnson Globulin (S) [Mass/Vol] 3.0 g/dL Normal [facility] Comment on above: Performed By: #### C MP, LIPID #### [facility] [address] [place] [address] Dr. Ambrocio Johnson Glucose [Mass/Vol] 101 mg/dL Normal 74-106 [facility] Comment on above: Performed By: #### C MP, LIPID #### [facility] [address] [address] [address] Ambrocio Johnson Potassium [Moles/Vol] 3.9 mmol/L Normal 3.5-5.1 [facility] Comment on above: Performed By: #### C MP, LIPID #### [facility] [address] [address] [address] Ambrocio Johnson Protein [Mass/Vol] 7.2 g/dL Normal 6.4-8.2 [facility] Comment on above: Performed By: #### C MP, LIPID #### [facility] [address] [address] [address] Ambrocio Johnson Sodium [Moles/Vol] 141 mmol/L Normal 136-145 [facility] Comment on above: Performed By: #### C MP, LIPID #### [facility] [address] [place] [address] Dr. Ambrocio Johnson Urea nitrogen [Mass/Vol] 34.0 mg/dL Critically high 7.0-18.0 [facility] Comment on above: Performed By: #### C MP, LIPID #### [facility] [address] [address] [address] Ambrocio Johnson Urea nitrogen/Creatinine [Mass ratio] 27.4 mg/mg Normal [facility] Comment on above: Performed By: #### C MP, LIPID #### [facility] [address] [place] [address] Dr. Ambrocio Johnson Vital Signs Date Time Vital Sign Value Performing Clinician Facility 03-19-2025 10:04040 Body height 152.4 cm [employer] Work Phone: [facility] [employer] 03-19-2025 10:04040 Body mass index (BMI) [Ratio] 29.41 kg/m2 [employer] Work Phone: [facility] [employer] 03-19-2025 10:04-040 Body temperature 97.81 [degF] [employer] Work Phone: [facility] 03-19-2025 10:04-0400 Body weight 68.31 kg Matt Furlong DO Work Phone: [facility] 03-19-2025 10:04-0400 Diastolic blood pressure 64 mm[Hg] Matt Furlong DO Work Phone: [facility] 03-19-2025 10:04-0400 Heart rate 64 /min Matt Furlong DO Work Phone: [facility] 03-19-2025 10:04-0400 Respiratory rate 18 /min Matt Furlong DO Work Phone: [facility] 03-19-2025 10:04-0400 SaO2% (BldA) [Mass fraction] 97 % Matt Furlong DO Work Phone: [facility] 03-19-2025 10:04-0400 Systolic blood pressure 138 mm[Hg] Matt Furlong DO Work Phone: [facility] 03-09-2025 18:25-0400 Body height 153.67 cm [facility] 03-09-2025 18:25-0400 Body mass index (BMI) [Ratio] 29 kg/m2 [facility] 03-09-2025 18:25-0400 Body weight 68.54 kg [facility] 03-09-2025 18:25-0400 Diastolic blood pressure 69 mm[Hg] [facility] 03-09-2025 18:25-0400 Heart rate 69 /min [facility] 03-09-2025 18:25-0400 Respiratory rate 12 /min [facility] 03-09-2025 18:25-0400 SaO2% (BldA) [Mass fraction] 98 % [facility] 03-09-2025 18:25-0400 Systolic blood pressure 158 mm[Hg] [facility] 12-17-2024 09:57-0400 Body height 152.4 cm Matt Furlong DO Work Phone: [facility] 12-17-2024 09:57-0400 Body mass index (BMI) [Ratio] 29.02 kg/m2 Matt Furlong DO [facility] 12-17-2024 09:57-0400 Body temperature 97.2 [degF] Matt Furlong DO Work Phone: [facility] [employer] [facility] 12-17-2024 09:57-0400 Body weight 67.41 kg Matt Furlong DO Work Phone: [facility] [employer] 12-17-2024 09:57-0400 Diastolic blood pressure 60 mm[Hg] Matt Furlong DO Work Phone: [facility] [employer] 12-17-2024 09:57-0400 Heart rate 59 /min Matt Furlong DO Work Phone: [facility] [employer] [facility] 12-17-2024 09:57-0400 Respiratory rate 20 /min Matt Furlong DO Work Phone: [facility] [employer] 12-17-2024 09:57-0400 Systolic blood pressure 126 mm[Hg] Matt Furlong DO Work Phone: [facility] [employer] [facility] 12-01-2024 14:17-0500 Body height 152.4 cm Matt Furlong [facility] 12-01-2024 14:17-0500 Body mass index (BMI) [Ratio] 29.47 kg/m2 Matt Furlong DO Work Phone: [facility] [employer] [facility] 12-01-2024 14:17-0500 Body temperature 97.9 [degF] Matt Furlong DO Work Phone: [facility] [employer] 12-01-2024 14:17-0500 Body weight 68.45 kg Matt Furlong DO Work Phone: [facility] [employer] [facility] 12-01-2024 14:17-0500 Diastolic blood pressure 60 mm[Hg] Matt Furlong DO Work Phone: [facility] [employer] [facility] 12-01-2024 14:17-0500 Heart rate 65 /min Matt Furlong DO Work Phone: [facility] [employer] [facility] 12-01-2024 14:17-0500 Respiratory rate 18 /min Matt Furlong DO Work Phone: [facility] 12-01-2024 14:17-0500 SaO2% (BldA) [Mass fraction] 98 % Matt Furlong DO Work Phone: [facility] [employer] [facility] 12-01-2024 14:17-0500 Systolic blood pressure 136 mm[Hg] Matt Furlong DO Work Phone: [facility] 11-18-2024 09:36-0500 Body height 152.4 cm Matt Furlong DO Work Phone: [facility] [employer] [facility] 11-18-2024 09:36-0500 Body mass index (BMI) [Ratio] 29.29 kg/m2 Matt Furlong DO Work Phone: [facility] [employer] [facility] 11-18-2024 09:36-0500 Body weight 68.04 kg Matt Furlong DO Work Phone: [facility] 11-18-2024 09:36-0500 Diastolic blood pressure 62 mm[Hg] Matt Furlong DO Work Phone: [facility] [employer] [facility] 11-18-2024 09:36-0500 Systolic blood pressure 124 mm[Hg] Matt Furlong DO Work Phone: [facility] [employer] [facility] 10-31-2024 09:00-0500 Body height 152.4 cm Matt Furlong DO Work Phone: [facility] 10-31-2024 09:00-0500 Body mass index (BMI) [Ratio] 28.83 kg/m2 Matt Furlong DO Work Phone: [facility] [employer] [facility] 10-31-2024 09:00-0500 Body temperature 97.9 [degF] Matt Furlong DO Work Phone: [facility] [employer] 10-31-2024 09:00-0500 Body weight 66.95 kg Matt Furlong DO Work Phone: [facility] [employer] [facility] 10-31-2024 09:00-0500 Diastolic blood pressure 50 mm[Hg] Matt Furlong DO Work Phone: [facility] [employer] [facility] 10-31-2024 09:00-0500 Heart rate 61 /min Matt Furlong DO Work Phone: [facility] [employer] 10-31-2024 09:00-0500 Respiratory rate 18 /min Matt Furlong DO Work Phone: [facility] [employer] [facility] 10-31-2024 09:00-0500 SaO2% (BldA) [Mass fraction] 99 % Matt Furlong DO Work Phone: [facility] [employer] [facility] 10-31-2024 09:00-0500 Systolic blood pressure 120 mm[Hg] Matt Furlong DO Work Phone: [facility] [employer] [facility] 07-21-2024 08:26-0400 Body height 152.4 cm Matt Furlong DO Work Phone: [facility] [employer] [facility] 07-21-2024 08:26-0400 Body mass index (BMI) [Ratio] 29.1 kg/m2 Matt Furlong DO Work Phone: [facility] [employer] [facility] 07-21-2024 08:26-0400 Body temperature 97.2 [degF] Matt Furlong DO Work Phone: [facility] [employer] [facility] 07-21-2024 08:26-0400 Body weight 67.59 kg Matt Furlong DO Work Phone: [facility] [employer] [facility] 07-21-2024 08:26-0400 Diastolic blood pressure 70 mm[Hg] Matt Furlong DO Work Phone: [facility] 07-21-2024 08:26-0400 Heart rate 61 /min Matt Furlong DO Work Phone: [facility] [employer] 07-21-2024 08:26-0400 Respiratory rate 18 /min Matt Furlong DO Work Phone: [facility] [employer] [facility] 07-21-2024 08:26-0400 SaO2% (BldA) [Mass fraction] 98 % Matt Furlong DO Work Phone: [facility] [employer] [facility] 07-21-2024 08:26-0400 Systolic blood pressure 122 mm[Hg] Matt Furlong DO Work Phone: [facility] [employer] [facility] 01-16-2024 09:23-0400 Body height 152.4 cm Matt Furlong DO Work Phone: [facility] [employer] 01-16-2024 09:23-0400 Body mass index (BMI) [Ratio] 29.04 kg/m2 Matt Furlong DO Work Phone: [facility] [employer] 01-16-2024 09:23-0400 Body temperature 97.2 [degF] Matt Furlong DO Work Phone: [facility] [employer] 01-16-2024 09:23-0400 Body weight 67.45 kg Matt Furlong DO Work Phone: [facility] [employer] 01-16-2024 09:23-0400 Diastolic blood pressure 60 mm[Hg] Matt Furlong DO Work Phone: [facility] [employer] 01-16-2024 09:23-0400 Heart rate 71 /min Matt Furlong DO Work Phone: [facility] [employer] 01-16-2024 09:23-0400 Respiratory rate 18 /min Matt Furlong DO Work Phone: [facility] [employer] [facility] 01-16-2024 09:23-0400 SaO2% (BldA) [Mass fraction] 97 % Matt Furlong DO Work Phone: [facility] [employer] [facility] 01-16-2024 09:23-0400 Systolic blood pressure 124 mm[Hg] Matt Webb DO Work Phone: [facility] [employer] [facility] Encounters Encounter Date Encounter Type Care Provider Facility Start: 05-13-2025 End: 05-13-2025 Refill Matt Webb DO Work Phone: [facility] Comment on above: Acquired hypothyroid ism Start: 03-19-2025 End: 03-19-2025 Office outpatient visit 25 minutes Matt Webb DO Work Phone: [facility] Comment on above: Benign hypertension with CKD (chronic kidney disease) stage III ([facility]) (Primary Dx); Mixed hyperlipidemia; Primary hypertension; Gastroesophageal reflux disease without esophagitis; Overweight; Chest pain, unspecified type Start: 03-19-2025 End: 03-19-2025 ambulatory MATTANIA WEBB [facility] Start: 03-13-2025 End: 03-13-2025 Refill Yadira Luong CMA [facility] Comment on above: Benign hypertension with CKD (chronic kidney disease) stage III ([facility]) Start: 03-12-2025 End: 03-12-2025 Refill Matt Webb DO Work Phone: [facility] Comment on above: Benign hypertension with CKD (chronic kidney disease) stage III ([facility]) Start: 03-09-2025 End: 03-09-2025 Departed Referred Gemini Silva APRN Work Phone: [facility] [place] Work Phone: Start: 03-09-2025 End: 03-09-2025 ambulatory Gemini Silva [facility] Work Phone: Start: 03-09-2025 End: 03-09-2025 Patient encounter procedure [facility] [place] Work Phone: Start: 01-27-2025 End: 01-27-2025 Refill Matt Webb DO Work Phone: [facility] Comment on above: Acquired hypothyroid ism Start: 12-17-2024 End: 12-17-2024 ambulatory [facility] Start: 12-17-2024 End: 12-17-2024 Assmt & care planning pt w/cognitive impairment Matt Webb DO Work Phone: [facility] Comment on above: Cognitive impairment (Primary Dx); Benign hypertension with CKD (chronic kidney disease) stage III ([facility]); Acquired hypothyroidism Start: 12-17-2024 End: 12-17-2024 [facility] Start: 12-15-2024 End: 12-15-2024 Refill Karen Juan Daniel [employer] [facility] Comment on above: Acquired hypothyroid ism Start: 12-12-2024 End: 12-12-2024 Refill Matt Webb DO Work Phone: [facility] Comment on above: Benign hypertension with CKD (chronic kidney disease) stage III ([facility]) Start: 12-01-2024 End: 12-01-2024 Office outpatient visit 15 minutes Matt Webb DO Work Phone: [facility] Comment on above: Benign hypertension with CKD (chronic kidney disease) stage III ([facility]) (Primary Dx); Dermatitis Start: 12-01-2024 End: 12-01-2024 ambulatory [facility] Start: 11-18-2024 End: 11-18-2024 Patient encounter procedure Matt Webb DO Work Phone: [facility] Comment on above: Medicare annual well ness visit, subsequent (Primary Dx); Screening for depression Start: 11-18-2024 End: 11-18-2024 [facility] Start: 10-31-2024 End: 10-31-2024 Office outpatient visit 25 minutes Matt Webb DO Work Phone: [facility] Comment on above: Primary hypertension (Primary Dx); Subacute cough; Hoarseness; Neurodermatitis Start: 10-31-2024 End: 10-31-2024 [facility] Start: 09-22-2024 End: 09-22-2024 Refill Matt Webb DO Work Phone: [facility] Comment on above: Benign hypertension with CKD (chronic kidney disease) stage III ([facility]) Start: 08-21-2024 End: 08-21-2024 Refill Matt Webb DO Work Phone: [facility] Comment on above: Primary hypertension Start: 07-22-2024 End: 07-22-2024 Telephone encounter Trudy Cummings CMA [facility] Start: 07-21-2024 End: 07-21-2024 [facility] Start: 07-21-2024 End: 07-21-2024 Office outpatient visit 25 minutes Matt Webb DO Work Phone: [facility] Comment on above: Benign hypertension with CKD (chronic kidney disease) stage III ([facility]) (Primary Dx); Mixed hyperlipidemia; Need for immunization against influenza; COVID-19 vaccine administered; Hyperglycemia; Primary hypertension; Acquired hypothyroidism; Overweight; Gastroesophageal reflux disease without esophagitis; Chronic otitis externa of left ear, unspecified type Start: 07-21-2024 End: 07-21-2024 [facility] Start: 06-05-2024 End: 06-05-2024 Refill Matt Burrowsng DO Work Phone: [facility] Comment on above: Benign hypertension with CKD (chronic kidney disease) stage III ([facility]) Start: 05-28-2024 End: 05-28-2024 Refill Matt Webb DO Work Phone: [facility] Comment on above: Primary hypertension Start: 02-26-2024 End: 02-26-2024 Refill Karen Juan Daniel [employer] [facility] Start: 01-31-2024 End: 02-01-2024 ambulatory MATT WEBB [facility] Start: 01-30-2024 End: 01-30-2024 Refill Karen Juan Daniel [employer] [facility] Comment on above: Acquired hypothyroid ism Primary hypertension Start: 01-17-2024 End: 01-17-2024 Orders Only Matt Burrowsng DO Work Phone: [facility] Start: 01-16-2024 End: 01-16-2024 ambulatory MATT WEBB [facility] Start: 01-16-2024 End: 01-16-2024 Office outpatient visit 25 minutes Matt Webb DO Work Phone: [facility] Comment on above: Benign hypertension with CKD (chronic kidney disease) stage III ([facility]) (Primary Dx); Acquired hypothyroidism; Mixed hyperlipidemia; Overweight (BMI 25.0-29.9); Chronic pain of right knee; Gastroesophageal reflux disease without esophagitis; Hyperglycemia; Complex regional pain syndrome type 1 of left upper extremity Start: 11-13-2023 End: 11-13-2023 Patient encounter procedure Matt Burrowsng DO Work Phone: [facility] Comment on above: Medicare annual well ness visit, subsequent (Primary Dx); Screening for depression Start: 11-06-2023 Refill Matt Burrows ng DO Work Phone: [facility] Comment on above: Acquired hypothyroid ism Start: 03-21-2023 End: 03-21-2023 ambulatory MATT WEBB Facility:[facility] Start: 07-19-2022 End: 07-20-2022 ambulatory MATT WEBB Facility: Procedures Date Procedure Procedure Detail Performing Clinician Start: 03-19-2025 Urnls dip stick/tabl et rgnt non-auto w/o micrscp Matt Webb DO Work Phone: Start: 03-19-2025 Ecg routine ecg w/le ast 12 lds w/i&r Matt Webb DO Work Phone: Start: 03-19-2025 Comprehensive metabo lic panel Matt Webb DO Work Phone: Start: 03-19-2025 Lipid panel Matt chaidez DO Work Phone: Start: 03-19-2025 Urine albumin quantitative Matt Webb DO Work Phone: Start: 03-19-2025 Adult depression scr eening assessment Matt Webb DO Work Phone: Start: 12-17-2024 Urnls dip stick/tabl et rgnt non-auto w/o micrscp Matt Webb DO Work Phone: Start: 12-17-2024 Follow-up visit Follow-up MATT WEBB Start: 12-17-2024 Adult depression scr eening assessment Matt Ramoslong DO Work Phone: Start: 12-01-2024 Adult depression scr eening assessment Matt Ramoslong DO Work Phone: Start: 11-18-2024 Adult depression scr eening assessment Matt Ramoslong DO Work Phone: Start: 07-21-2024 Adult depression scr eening assessment Matt Rachellong DO Work Phone: Start: 01-16-2024 Adult depression scr eening assessment Matt Ramoslong DO Work Phone: Start: 11-13-2023 Adult depression scr eening assessment Matt Ramoslong DO Work Phone: Start: 09-14-2023 Adult depression scr eening assessment Matt Webb DO Work Phone: Start: 03-21-2023 Colonoscopy aMtt anderson DO Work Phone: Plan of Treatment Date Care Activity Detail Author Start: 07-16-2033 DTaP,Tdap and Td Vaccines (2 - Td or Tdap) DTaP,Tdap and Td Vaccines (2 - Td or Tdap) [facility] Start: 03-21-2033 Screening for malign ant neoplasm of colon Colonoscopy [facility] Start: 03-19-2026 COVID-19 Vaccine () COVID-19 Vaccine () [facility] Comment on above: Postponed from 01/19 (Vaccine Not Available) Start: 03-19-2026 Depression Screening Depression Scre ening [facility] Start: 03-19-2026 Fall Risk Screening Fall Risk Screen ing [facility] Start: 03-19-2026 Tobacco Screening Tobacco Screening [facility] Start: 12-17-2025 Depression Screening Depression Scre ening [facility] Start: 12-17-2025 Fall Risk Screening Fall Risk Screen ing [facility] Start: 12-17-2025 Tobacco Screening Tobacco Screening [facility] Start: 12-01-2025 Depression Screening Depression Scre ening [facility] Start: 12-01-2025 Fall Risk Screening Fall Risk Screen ing [facility] Start: 12-01-2025 Tobacco Screening Tobacco Screening [facility] Start: 11-19-2025 End: 11-19-2025 Patient encounter procedure 11/19/2025 10:00 AM EST Office Visit [facility] [address] [place] [address] [facility] Start: 11-18-2025 Depression Screening Depression Scre ening [facility] Start: 11-18-2025 Fall Risk Screening Fall Risk Screen ing [facility] Start: 11-18-2025 Medicare Annual Well ness Visit Medicare Annual Wellness Visit [facility] Start: 10-31-2025 Tobacco Screening Tobacco Screening [facility] Start: 09-18-2025 End: 09-18-2025 Patient encounter procedure 09/18/2025 10:30 AM EST Office Visit [facility] [address] [place] [address] Matt Webb, DO [address], [place] [address] [facility] Start: 07-21-2025 Adult BMI Screening Adult BMI Screen ing [facility] Start: 07-21-2025 Depression Screening Depression Scre ening [facility] Start: 07-21-2025 Fall Risk Screening Fall Risk Screen ing [facility] Start: 07-21-2025 Tobacco Screening Tobacco Screening [facility] Start: 06-08-2025 Influenza vaccination Influenza Vacc ine [facility] Start: 03-19-2025 End: 03-19-2025 Patient encounter procedure 03/19/2025 10:00 AM EDT Office Visit [facility] [address] [place] [address] Matt Webb DO [address], [place] [address] [facility] Start: 03-09-2025 Urine culture [facility] Start: 03-09-2025 Bacteria identified in Urine by Culture Urine Culture [facility] Start: 01-21-2025 End: 01-21-2025 Patient encounter procedure 01/21/2025 8:30 AM EDT Office Visit [facility] [address] [place] [address] Matt Webb, DO [address], [place] [address] [facility] Start: 01-19-2025 COVID-19 Vaccine ( season) COVID-19 Vaccine ( season) [facility] Start: 01-15-2025 Adult BMI Screening Adult BMI Screen ing [facility] Start: 01-15-2025 Depression Screening Depression Scre ening [facility] Start: 01-15-2025 Fall Risk Screening Fall Risk Screen ing [facility] Start: 01-15-2025 Tobacco Screening Tobacco Screening [facility] Start: 12-17-2024 End: 12-17-2024 Patient encounter procedure 12/17/2024 10:00 AM EDT Office Visit [facility] - Family Medicine [address] [place] [address] Matt Webb, DO [address], [facility] [address] [facility] Start: 12-01-2024 End: 12-01-2024 Patient encounter procedure 12/01/2024 2:15 PM EST Office Visit [facility] [address] [place] [address] Matt Webb, DO [address] [place] [address] [facility] Start: 11-21-2024 COVID-19 Vaccine ( season) COVID-19 Vaccine () [facility] Start: 11-18-2024 End: 11-18-2024 Patient encounter procedure 11/18/2024 9:40 AM EST Office Visit [facility] Family Medicine [address] [place] [address] [facility] Start: 11-13-2024 Depression Screening Depression Scre ening [facility] Start: 11-13-2024 Fall Risk Screening Fall Risk Screen ing [facility] Start: 11-13-2024 Medicare Annual Well ness Visit Medicare Annual Wellness Visit [facility] Start: 09-14-2024 Adult BMI Screening Adult BMI Screen ing [facility] Start: 09-14-2024 Depression Screening Depression Scre ening [facility] Start: 09-14-2024 Fall Risk Screening Fall Risk Screen ing [facility] Start: 09-14-2024 Tobacco Screening Tobacco Screening [facility] Start: 07-21-2024 End: 07-21-2024 Patient encounter procedure 07/21/2024 8:30 AM EDT Office Visit [facility] [address] [place] [address] Matt Webb, [address] [place] [address] [facility] Start: 06-08-2024 Influenza vaccination Influenza Vacc ine [facility] Start: 01-16-2024 End: 01-15-2025 XR Knee - right 3 Views X-ray knee right 3 views Imaging Routine Chronic pain of right knee Expected: 01/16/2024, Expires: 01/15/2025 [facility] Work Phone: Comment on above: Expected: 01/16/2024 , Expires: 01/15/2025 Start: 01-16-2024 End: 01-16-2024 Patient encounter procedure 01/16/2024 9:30 AM EDT Office Visit [facility] [address] [place] [address] Matt Webb DO [address], [place] [address] [facility] Start: 11-13-2023 End: 11-13-2023 Patient encounter procedure 11/13/2023 10:10 AM EST Office Visit [facility] [address] [facility] [address] [facility] Start: 06-08-2023 COVID-19 Vaccine ( season) COVID-19 Vaccine () [facility] Start: 06-08-2023 Influenza vaccination Influenza [facility]e [facility] Start: 1963 Adult BMI Follow Up Plan Adult BMI F ollow Up Plan [facility] End: 07-21-2025 CBC panel - Blood by Automated count CBC Lab Routine Benign hypertension with CKD (chronic kidney disease) stage III ([facility]) 1 Occurrences starting 07/21/2024 until 07/21/2025 [employer] Comment on above: 1 Occurrences starti ng 07/21/2024 until 07/21/2025 End: 12-17-2025 CBC panel - Blood by Automated count CBC without diff Lab Routine Cognitive impairment 1 Occurrences starting 12/17/2024 until 12/17/2025 Field Agent Work Phone: Comment on above: 1 Occurrences starti ng 12/17/2024 until 12/17/2025 End: 07-21-2025 Comprehensive metabolic 2000 panel - Serum or Plasma Comprehensive metabolic panel Lab Routine Benign hypertension with CKD (chronic kidney disease) stage III ([facility]) 1 Occurrences starting 07/21/2024 until 07/21/2025 Field Agent Work Phone: Comment on above: 1 Occurrences starti ng 07/21/2024 until 07/21/2025 End: 12-17-2025 Comprehensive metabolic 2000 panel - Serum or Plasma Comprehensive metabolic panel Lab Routine Cognitive impairment 1 Occurrences starting 12/17/2024 until 12/17/2025 [employer] Comment on above: 1 Occurrences starti ng 12/17/2024 until 12/17/2025 End: 12-17-2025 Cyanocobalamin vitamin b-12 Vitamin B12 Lab Routine Cognitive impairment 1 Occurrences starting 12/17/2024 until 12/17/2025 [employer] Comment on above: 1 Occurrences starti ng 12/17/2024 until 12/17/2025 End: 07-21-2025 Hemoglobin A1c/Hemoglobin.total in Blood Hemoglobin A1c Lab Routine Hyperglycemia 1 Occurrences starting 07/21/2024 until 07/21/2025 [employer] Comment on above: 1 Occurrences starti ng 07/21/2024 until 07/21/2025 End: 07-21-2025 Magnesium [Mass/volume] in Serum or Plasma Magnesium Lab Routine Benign hypertension with CKD (chronic kidney disease) stage III ([facility]) 1 Occurrences starting 07/21/2024 until 07/21/2025 [employer] Comment on above: 1 Occurrences starti ng 07/21/2024 until 07/21/2025 End: 07-21-2025 Parathyroid Hormone, intact Parathyroid Hormone, intact Lab Routine Benign hypertension with CKD (chronic kidney disease) stage III ([facility]) 1 Occurrences starting 07/21/2024 until 07/21/2025 [employer] Comment on above: 1 Occurrences starti ng 07/21/2024 until 07/21/2025 End: 07-21-2025 Phosphate [Mass/volume] in Serum or Plasma Phosphorus Lab Routine Benign hypertension with CKD (chronic kidney disease) stage III ([facility]) 1 Occurrences starting 07/21/2024 until 07/21/2025 [employer] Comment on above: 1 Occurrences starti ng 07/21/2024 until 07/21/2025 POCT EKG POCT EKG ECG Rou deirdre Chest pain, unspecified type 03/19/2025 10:46 AM EDT Field Agent Work Phone: End: 12-17-2025 Thyroid profile includes TSH FT4 Thyroid profile includes TSH FT4 Lab Routine Acquired hypothyroidism 1 Occurrences starting 12/17/2024 until 12/17/2025 [employer] Comment on above: 1 Occurrences starti ng 12/17/2024 until 12/17/2025 End: 07-21-2025 Urate [Mass/volume] in Serum or Plasma Uric acid Lab Routine Benign hypertension with CKD (chronic kidney disease) stage III ([facility]) 1 Occurrences starting 07/21/2024 until 07/21/2025 [employer] Comment on above: 1 Occurrences starti ng 07/21/2024 until 07/21/2025 End: 07-21-2025 Vitamin D 25 hydroxy Vitamin D 25 hydroxy Lab Routine Benign hypertension with CKD (chronic kidney disease) stage III ([facility]) 1 Occurrences starting 07/21/2024 until 07/21/2025 [facility] Comment on above: 1 Occurrences starti ng 07/21/2024 until 07/21/2025 Immunizations Immunization Date Immunization Notes Care Provider Fa cility 07-21-2024 Covid-19, Mrna, Lnp- s, Pf,clayton-sucrose,30 Mcg/0.3ml Fall23 Matt Rachellong DO Work Phone: [facility] 07-21-2024 Seasonal trivalent influenza vaccine, adjuvanted, preservative free Matt Furlong DO Work Phone: [facility] 07-21-2024 Immunization, In Clinic,; Translations: [Drug or medicament (substance)] Matt Rachellong DO Work Phone: [facility] 07-21-2024 influenza virus vaccine, unspecified formulation Matt Furlong DO Work Phone: [facility] 07-16-2023 tetanus toxoid, redu marcella diphtheria toxoid, and acellular pertussis vaccine, adsorbed Matt Furlong DO Work Phone: [facility] 09-06-2022 zoster vaccine, live Matt Furlong DO Work Phone: [facility] 08-02-2021 influenza, injectabl e, quadrivalent, contains preservative Matt Furlong DO Work Phone: [facility] 08-02-2021 influenza virus vaccine, unspecified formulation Matt Furlong DO Work Phone: [facility] 12-28-2020 COVID-19, mRNA, LNP- S, PF, 100mcg/0.5mL Dose Matt Furlong DO Work Phone: [facility] 12-06-2020 COVID-19, mRNA, LNP- S, PF, 30mcg/0.3mL Dose Matt Furlong DO Work Phone: [facility] 07-21-2020 influenza, injectabl e, quadrivalent, contains preservative Matt Furlong DO Work Phone: [facility] 07-14-2019 influenza, injectabl e, quadrivalent, contains preservative Matt Furlong DO Work Phone: [facility] 08-23-2018 zoster vaccine recombinant Matt Furlong DO Work Phone: [facility] 07-15-2018 influenza virus vaccine, unspecified formulation Matt Furlong DO Work Phone: [facility] 05-17-2018 zoster vaccine recombinant Matt Furlong DO Work Phone: [facility] Payers Date Payer Category Payer Self-pay 2019 [employer] ( and others) FOR LIFE [id number] 2019-Present [phone] [id number] [place] [address] [id number] 2019 () FOR FE [id number] 2019 Medicare [id number] 2011 Medicare [id number] 1959 [employer] ( and others) [id number] 1959 Medicare [id number] 1946 Unknown [id number]. 593 1946 Unknown [id number]. 718 1946 Unknown [id number] [id number]. 1286 1946 Unknown [id number] 2.16.840.1.250575.3.579.2. 1286 1946 Unknown [id number] 2.16.840.1.088296.3.579.2. 1286 1946 Unknown [id number] 2.16.840.1.707894.3.579.2. 1286 1946 Unknown [id number] 2.16.840.1.530991.3.579.2. 1286 1946 Unknown [id number] 2.16.840.1.876790.3.579.2. 1286 1946 Unknown [id number] 2.16.840.1.758316.3.579.2. 1286 1946 Unknown [id number] 2.16.840.1.534848.3.579.2. 1286 1946 Unknown [id number] 2.16.840.1.102412.3.579.2. 1286 1946 Unknown [id number]. 1286 [employer] ( and others) [id number] Unknown [facility] [id number] [facility] [id number] 531 Social History Date Type Detail Facility Start: 01-16-2024 End: 10-31-2024 Tobacco smoking status NHIS Ex-smoker [facility] Start: 10-08-1966 End: 10-08-1991 History of tobacco use Current smoker [facility] Start: 10-08-1966 End: 10-08-1991 History of tobacco use Cigarette Smoker [facility] Start: 04-02-2023 End: 10-31-2024 Cigarettes smoked current (pack per day) - Reported 1 [facility] Start: 01-16-2024 End: 10-31-2024 Tobacco use and exposure Smokeless tobacco non-user [facility] Start: 10-31-2024 End: 03-19-2025 Alcoholic beverage intake Current drinker of alcohol (finding) [facility] Start: 04-02-2023 End: 09-14-2023 Fanaticall [facility] Has the [employer], [employer], or water [employer] threatened to shut off services in your home in past 12Mo No [facility] Do you belong to any clubs or organizations such as gnosticist groups, unions, fraternal or athletic groups, or school groups? Yes [facility] Are you now , , , , never or living with a partner? [facility] How often to you hav e a drink containing alcohol? Monthly or less [facility] How many standard dr inks containing alcohol do you have on a typical day? 1 or 2 [facility] How often do you hav e 6 or more drinks on 1 occasion? Never [facility] How hard is it for y ou to pay for the very basics like food, housing, medical care, and heating Not hard at all [facility] Do you feel stress - tense, restless, nervous, or anxious, or unable to sleep at night because your mind is troubled all the time - these days [OSQ] Only a little [facility] Start: 10-18-2022 Alcohol Comment OCCASIONAL [facility] Start: 1945 Sex assigned at Not on file [facility] Start: 05-11-2015 End: 03-10-2025 Sex Female (finding) [facility] Start: 10-07-2024 [facility] Start: 1945 Sex Assigned At Female F [facility] Clinical Notes 05-04-2022 to 03-19-2025 Matt Webb, DO - 03/19/2025 10:00 AM EDT Note Date & Type Note Facility 03-19-2025 History of Present illness Narrative Subjective Patient ID: Ananda Izaguirre is a 79 y.o. female. Ananda presents today for a CV recheck. She would like to have her urine checked again for a UTI. She had a recent UTI and went to urgent care and was given cipro She feels like she still has it. She is going frequently. She does feel some discomfort down there. She does not have a fever. She was told she had blood in her urine. She is taking all of her medications. She does not have any side effects. She cut back on her amlodipine to 5 mg daily and her blood pressure started to go up into the 160s and 170s on top. She restarted a whole pill again. She also is losing her hair and would like some She has gas pain and sometimes it hurts in her jaw. It doesn't last long-maybe a minute or 2. It is random and not associated with meals. She does not really do any exercise. She said she had a stress test and EKG about 5 years ago with her previous physician The following portions of the patient's history were reviewed and updated as appropriate: allergies, current medications, past family history, past medical history, past social history, past surgical history, problem list, and medication reconciliation was completed including current medication and post discharge medication. Review of Systems Cardiovascular: Positive for chest pain. Objective Physical Exam Vitals reviewed. Constitutional: General: She is not in acute distress. Appearance: Normal appearance. She is overweight. She is not ill-appearing. HENT: Head: Normocephalic. Eyes: General: No scleral icterus. Extraocular Movements: Extraocular movements intact. Conjunctiva/sclera: Conjunctivae normal. Cardiovascular: Rate and Rhythm: Normal rate and regular rhythm. Pulses: Normal pulses. Heart sounds: Normal heart sounds. No murmur heard. Pulmonary: Effort: Pulmonary effort is normal. No respiratory distress. Breath sounds: Normal breath sounds. No wheezing, rhonchi or rales. Musculoskeletal: Cervical back: Neck supple. Right lower leg: No edema. Left lower leg: No edema. Neurological: General: No focal deficit present. Mental Status: She is alert and oriented to person, place, and time. Psychiatric: Attention and Perception: Attention normal. Mood and Affect: Mood and affect normal. Speech: Speech normal. Behavior: Behavior normal. Behavior is cooperative. Thought Content: Thought content normal. Cognition and Memory: Cognition and memory normal. Judgment: Judgment normal. Assessment/Plan Ananda was seen today for recheck. Diagnoses and all orders for this visit: Benign hypertension with CKD (chronic kidney disease) stage III ([facility]) - Comprehensive metabolic panel; Future - POCT urinalysis dipstick only - Microalbumin - Albumin: Creatinine Urine Ratio; Future - Microalbumin - Albumin: Creatinine Urine Ratio - Comprehensive metabolic panel Her blood pressure is borderline high. Stay on her current regimen. Check CMP, ACR and UA. Her UA did not show any protein or blood. Also her infection has cleared. Mixed hyperlipidemia - Lipid profile; Future - Lipid profile Check lipid panel Primary hypertension - amLODIPine (NORVASC) 10 mg tablet; Take 1 tablet (10 mg total) by mouth daily after dinner. Stay on amlodipine 10 mg daily. Gastroesophageal reflux disease without esophagitis Chest pain may be coming from GERD. She has been doing well on famotidine. Can try antacids but the discomfort is brief Overweight She is overweight. She would benefit from weight loss. Patient noted to have elevated BMI and the following intervention(s) were applied: encouragement to exercise and prescribed diet education. Chest pain, unspecified type - POCT EKG She has intermittent chest pain. He etiology is unclear. EKG showed sinus bradycardia today. She really does not exert herself to know if she has exertional chest pain. She describes it as gas but also has tightness as well. Can not rule out coronary artery disease. We can do a stress test but she declined. Risks of heart disease discussed. documented [facility] this encounter [email or web address] Evaluation note Diagnosis Onset Date Resolution Acute UTI acute March 09, 2025 6:17pm [facility] Work Phone: [phone]) 721-646503-12-2025 History of Present illness Narrative* Matt Webb DO - 12/17/2024 10:00 AM EDT Subjective Patient ID: Ananda Izaguirre is a 79 y.o. female. Ananda presents today to discuss her memory problems. She is getting forgetful. She will go into a room and forget what she goes in to do. Usually she eventually remembers what it was that she needed todo or get. She does still pay all of her bills. She can do all her ADLs and IADLs. She still drives. She has not gotten lost. She did fail the Marshall test but feels some of that is cultural. Egyptian is her 2nd language. She had a depression screen at her wellness and was negative. She denies stress. The following portions of the patient's history were reviewed and updated as appropriate: allergies, current medications, past family history, past medical history, past social history, past surgicalhistory, problem list, and medication reconciliation was completed including current medication andpost discharge medication. Review of Systems Constitutional: Negative. HENT: Negative. Eyes: Negative. Respiratory: Negative. Cardiovascular: Negative. Gastrointestinal: Negative. Endocrine: Negative. Genitourinary: Negative. Musculoskeletal: Negative. Skin: Negative. Allergic/Immunologic: Negative. Neurological: Negative. Hematological: Negative. Psychiatric/Behavioral: Positive for confusion. Objective Physical Exam Vitals reviewed. Constitutional: General: She is not in acute distress. HENT: Head: Normocephalic. Cardiovascular: Rate and Rhythm: Normal rate and regular rhythm. Pulses: Normal pulses. Heart sounds: Normal heart sounds. No murmur heard. Pulmonary: Effort: Pulmonary effort is normal. No respiratory distress. Breath sounds: Normal breath sounds. No wheezing, rhonchi or rales. Abdominal: General: Bowel sounds are normal. Palpations: Abdomen is soft. Musculoskeletal: Cervical back: Neck supple. Right lower leg: No edema. Left lower leg: No edema. Neurological: General: No focal deficit present. Mental Status: She is alert. Cranial Nerves: Cranial nerves 2-12 are intact. Coordination: Coordination is intact. Comments: Negative snout, root, glabellar tap, grasp and palmomental tests Psychiatric: Mood and Affect: Mood normal. Behavior: Behavior normal. Thought Content: Thought content normal. Judgment: Judgment normal. Assessment/Plan Ananda was seen today for follow-up. Diagnoses and all orders for this visit: Cognitive impairment - CBC without diff; Future - Comprehensive metabolic panel; Future - Cancel: TSH with Reflex; Future - Vitamin B12; Future - POCT urinalysis dipstick only She did fail the MOCA but I think a lot of that is cultural. She is a FAST 2 with just subjective evidence of memory issues. She can do all her ADLs and IADLs. She has advanced directives in place. We will check labs. Her UA was essentially normal. We discussed imaging with an MRI but she declined.She did not want any further evaluation which I think is reasonable. We can continue screening yearly at her Medicare wellness visits. Benign hypertension with CKD (chronic kidney disease) stage III ([facility]) - Cancel: TSH with Reflex; Future - POCT urinalysis dipstick only Check CMP and TSH. UA looked okay except for the glucosuria which is expected with Jardiance. Acquired hypothyroidism - Thyroid profile includes TSH FT4; Future Check TSH and T4. [facility] History of Present illness Narrative* Matt Webb DO - 12/01/2024 2:15 PM EST Subjective Patient ID: Ananda Izaguirre is a 79 y.o. female. Ananda presents for recheck of BP and rash. The rash on her arms are better. It still itches at times and she scratches it. The cream does seem to be helping. Is better on the right arm than the left arm. She is also using a generic moisturizer. BP at home 120's/60's when she checks The following portions of the patient's history were reviewed and updated as appropriate: allergies, current medications, past family history, past medical history, past social history, past surgicalhistory, problem list, and medication reconciliation was completed including current medication andpost discharge medication. Review of Systems Constitutional: Negative. HENT: Negative. Eyes: Negative. Respiratory: Negative. Cardiovascular: Negative. Gastrointestinal: Negative. Endocrine: Negative. Genitourinary: Negative. Skin: Positive for rash. Allergic/Immunologic: Negative. Neurological: Negative. Hematological: Negative. Psychiatric/Behavioral: Negative. Objective Physical Exam Vitals reviewed. Exam conducted with a rail engineer present. Constitutional: General: She is not in acute distress. Appearance: She is overweight. She is not ill-appearing. HENT: Head: Normocephalic. Eyes: General: No scleral icterus. Extraocular Movements: Extraocular movements intact. Conjunctiva/sclera: Conjunctivae normal. Neck: Vascular: No carotid bruit. Cardiovascular: Rate and Rhythm: Normal rate and regular rhythm. Pulses: Normal pulses. Heart sounds: Normal heart sounds. No murmur heard. Pulmonary: Effort: Pulmonary effort is normal. No respiratory distress. Breath sounds: Normal breath sounds. No wheezing, rhonchi or rales. Abdominal: General: Bowel sounds are normal. Palpations: Abdomen is soft. Musculoskeletal: Cervical back: Neck supple. Lymphadenopathy: Cervical: No cervical adenopathy. Skin: General: Skin is warm and dry. Findings: Lesion (several red papules on bilateral arms but worse on the left. Some have open areaswith scabs at the center. No evidence of infection) present. Neurological: General: No focal deficit present. Mental Status: She is alert and oriented to person, place, and time. Psychiatric: Mood and Affect: Mood normal. Behavior: Behavior normal. Thought Content: Thought content normal. Judgment: Judgment normal. Assessment/Plan Ananda was seen today for 1 month recheck. Diagnoses and all orders for this visit: Benign hypertension with CKD (chronic kidney disease) stage III ([facility]) Blood pressure essentially at goal. Continue current regimen. Dermatitis Improved. Continue triamcinolone 0.1% cream twice a day. Try iiji-yom-xwkiakk moisturizer such as CeraVe. Encouraged to drink more water as well. [facility] History of Present illness Narrative* Matt May DO Jon - 11/18/2024 9:40 AM EST Subjective SUBJECTIVE: Patient ID: Ananda Izaguirre is a 79 y.o. female who presents for a Medicare Annual Wellness exam. HPI The following portions of the patient's history were reviewed and updated as appropriate: allergies, current medications, past family history, past medical history, past social history, past surgicalhistory and problem list. AWV FLOWSHEET : Lifestyle Assessment Do you smoke or use smokeless tobacco?: No If you smoke or use smokeless tobacco, are you ready to quit?: NA Are you exposed to secondhand smoke?: No On average, how many drinks of alcohol do you consume in a week?: None Do you exercise for 30 or more minutes on average at least 3 days a week?: Sometimes Do you have any tooth, denture, or oral problems?: No Do you snore or has anyone told you that you snore?: No Do you try to eat a balanced diet?: Yes Do you experience leakage of urine, also known as urinary incontinence?: Never Do you have difficulty performing any of these activities? (check all that apply): None Do you have difficulty performing any of these activities? (check all that apply): None Fall Risk Fall Risk Assessment Completed?: Yes Have you fallen in the past year?: No Are you worried about falling?: (!) Yes Do you feel unsteady when standing or walking?: (!) Yes Risk Stratification: Moderate Risk Depression Screening Little interest or pleasure in doing things: Not at all Feeling down, depressed, or hopeless: Not at all Trouble falling or staying asleep, or sleeping too much: Not at all Feeling tired or having little energy: Not at all Poor appetite or overeating: Not at all Feeling bad about yourself - or that you are a failure or have let yourself or your family down: Not at all Trouble concentrating on things, such as reading the newspaper or watching television: Not at all Moving or speaking so slowly that other people could have noticed. Or the opposite - being so fidgety or restless that you have been moving around a lot more than usual: Not at all Thoughts that you would be better off , or of hurting yourself in some way: Not at all PEG Scale What number best describes your pain on average in the past week?: 3 Safety Assessment Do you have throw rugs on the floor?: (!) Yes Do you feel safe at your home?: Yes Do you feel unsteady when walking?: No Are you having difficulty with driving?: No Do you have trouble seeing?: No What assistive device do you use? (check all that apply): None Hearing Assessment Do you strain or struggle to hear/understand conversations?: No Do you have trouble hearing the television or radio when others do not?: No Does your family ever voice concerns about your hearing?: No Do you wear hearing aid/s?: No Personal Health During the past 4 weeks, how would you rate your overall health?: Good Do you understand how to take all of your medications?: Yes How confident are you that you can control and manage most of your health problems?: Very confident In the past 12 months, how many times have you been hospitalized?: None End of Life Planning Do you have a living will?: Yes Do you have a durable power of research attorney?: Yes Cognitive Screening Do you have trouble remembering or recalling facts or events?: (!) Yes Do family members or caregivers report that you have difficulty remembering things?: (!) Yes Clock Drawing Test: Abnormal-will return to the office for further evaluation REVIEW OF SYSTEMS: Review of Systems Objective PHYSICAL EXAMINATION: Vitals: 11/18/24 0936 BP: 124/62 Weight: 68 kg (150 lb) Height: 152.4 cm (5') Physical Exam Assessment/Plan ASSESSMENT/PLAN Encounter Diagnoses Name Primary? Medicare annual wellness visit, subsequent Yes Screening for depression Health maintenance discussed. Depression screen was negative. At least 3 minute spent administering and discussing. Cognitive evaluation did reveal impairment. She will return to the office for further evaluation. She has advanced directives in place. Return in about 1 year (around 11/18/2025). [facility] History of Present illness Narrative* Matt Webb DO - 10/31/2024 9:00 AM EST Subjective Patient ID: Ananda Izaguirre is a 79 y.o. female. Ananda presents today for a CV recheck and a problem. She is taking all of her blood pressure medications and her blood pressure has been low at home. It has been 101 and 102 on the sand down to the 50son the diastolic. She is relatively asymptomatic with this. She had the flu over the holidays. She went to the urgent care at the end of September and was givena Z-Enrique and cough medications. She was not any better and so she went to the ER a week later. She had a chest x-ray which was negative. She was treated conservatively with symptom control and pushingfluids. She is taking nyquil and tylenol. She feels the cough is in the middle of her throat and points to her voice box area. She has also had a problem with hoarseness for a few years. It is worse in the morning and then it clears up. She does have known GERD. She does take famotidine for that. She has never seen a specialist. She also has a rash on her left arm. It has been there at least a month. It itches and then she scratches it. She thinks she scratches it at night while sleeping. It scabs over. She has been using hydrocortisone and Neosporin creams [id number] with little improvement. She does not have it anywhere else. Rash Associated symptoms include coughing. Hypertension The following portions of the patient's history were reviewed and updated as appropriate: allergies, current medications, past family history, past medical history, past social history, past surgicalhistory, problem list, and medication reconciliation was completed including current medication andpost discharge medication. Review of Systems Constitutional: Negative. Respiratory: Positive for cough. Cardiovascular: Negative. Gastrointestinal: Negative. Skin: Positive for rash. Neurological: Negative. Psychiatric/Behavioral: Negative. Objective Physical Exam Exam conducted with a rail engineer present (Niece and Jennifer Gasca MS 3). Constitutional: General: She is not in acute distress. Appearance: Normal appearance. She is not ill-appearing. HENT: Head: Normocephalic. Neck: Vascular: No carotid bruit. Cardiovascular: Rate and Rhythm: Regular rhythm. Pulses: Normal pulses. Pulmonary: Effort: Pulmonary effort is normal. No respiratory distress. Breath sounds: Normal breath sounds. No wheezing, rhonchi or rales. Musculoskeletal: General: Deformity present. Cervical back: Neck supple. No tenderness. Lymphadenopathy: Cervical: No cervical adenopathy. Skin: Findings: Lesion (multiple stage II lesions on left forearm dorsally as well as red macules; no evidence of infection, no active bleeding; picture taken) present. Neurological: General: No focal deficit present. Mental Status: She is alert and oriented to person, place, and time. Psychiatric: Mood and Affect: Mood normal. Behavior: Behavior normal. Thought Content: Thought content normal. Judgment: Judgment normal. Assessment/Plan Ananda was seen today for rash and hypertension. Diagnoses and all orders for this visit: Primary hypertension - amLODIPine (NORVASC) 10 mg tablet; Take 0.5 tablets (5 mg total) by mouth daily after dinner. Her blood pressure is very good here and low at home. I am going to cut back on her amlodipine to 5mg daily. We will recheck her in 1 month. Encouraged to check blood pressure at home and bring in results Subacute cough I suspect a post bronchitic cough. No evidence of pneumonia. ER and chest x-ray results reviewed and discussed with patient. I will give her a sample of Trelegy to take 1 puff daily for 2 weeks. She is to rinse her mouth out after use. Hoarseness I suspect it is due to GERD. If she still has it in 1 month and I am going to have her see ENT Neurodermatitis I suspect a neurodermatitis on left arm. We will try a little stronger steroid cream. She can stilluse the topical antibiotic for open areas. Recommended moisturizer like CeraVe and to avoid scratching. Strategies discussed like wearing garden gloves at bedtime Other orders - Discontinue: triamcinolone (KENALOG) 0.1 % cream; Apply 1 Application topically in the morning and 1 Application before bedtime. - triamcinolone (KENALOG) 0.1 % cream; Apply 1 Application topically in the morning and 1 Application before bedtime. - cxuacltjisy-xkhkonyzn-nucnmrbd (TRELEGY ELLIPTA) 100-62.5-25 mcg blister with device; Inhale 1 puff once daily for 14 days. documented [facility]10[facility] Miscellaneous Notes* Telephone Encounter - Trudy Cummings CMA - 07/22/2024 3:13 PM EDT ----- Message from Dr. Matt Webb DO sent at 07/22/2024 12:58 PM EDT ----- Her kidney tests have improved. The rest of her chronic kidney disease labs were normal. Her glucose was 102 and her A1c was 5.4% so she is impaired fasting glucose but not prediabetic yet. The rest of her CMP was normal. Continue current regimen * Telephone Encounter - Trudy Cummings CMA - 07/22/2024 3:13 PM EDT Spoke with pt. Pt verbalizes understanding. documented [facility]10-[facility] Telephone encounter Note* Telephone Encounter - Trudy Cummings CMA - 07/22/2024 3:13 PM EDT ----- Message from Dr. Matt Webb DO sent at 07/22/2024 12:58 PM EDT ----- Her kidney tests have improved. The rest of her chronic kidney disease labs were normal. Her glucose was 102 and her A1c was 5.4% so she is impaired fasting glucose but not prediabetic yet. The rest of her CMP was normal. Continue current regimen [facility] Telephone encounter Note* Telephone Encounter - Trudy Cummings CMA - 07/22/2024 3:13 PM EDT Spoke with pt. Pt verbalizes understanding. [facility] History of Present illness Narrative* Matt Webb, - 07/21/2024 8:30 AM EDT Subjective Patient ID: Ananda Izaguirre is a 78 y.o. female. Ananda presents today for a CV recheck. She increase the atorvastatin and tolerating well. She is taking all of her other medications. She would like her sugar checked. She has occasional itchiness around her neck. She takes Benadryl for it and it helps. She does not have a rash with it. Does not seemto occur with food. She wonders if it is her thyroid causing it. She also has itching of her left ear occasionally. She is using Cortisporin otic as needed for it. She would like a refill of that. Her stomach has been real good with the Pepcid. The following portions of the patient's history were reviewed and updated as appropriate: allergies, current medications, past family history, past medical history, past social history, past surgicalhistory, problem list, and medication reconciliation was completed including current medication andpost discharge medication. Review of Systems Constitutional: Negative. HENT: Negative. Eyes: Negative. Respiratory: Negative. Cardiovascular: Negative. Gastrointestinal: Negative. Endocrine: Negative. Genitourinary: Negative. Musculoskeletal: Negative. Skin: Negative. Neurological: Negative. Hematological: Negative. Psychiatric/Behavioral: Negative. Objective Physical Exam Constitutional: General: She is not in acute distress. HENT: Head: Normocephalic. Right Ear: Tympanic membrane, ear canal and external ear normal. Left Ear: Tympanic membrane, ear canal and external ear normal. Eyes: General: No scleral icterus. Extraocular Movements: Extraocular movements intact. Conjunctiva/sclera: Conjunctivae normal. Neck: Thyroid: No thyroid mass, thyromegaly or thyroid tenderness. Vascular: No carotid bruit. Cardiovascular: Rate and Rhythm: Normal rate and regular rhythm. Pulses: Normal pulses. Heart sounds: Normal heart sounds. No murmur heard. Pulmonary: Effort: Pulmonary effort is normal. No respiratory distress. Breath sounds: Normal breath sounds. No wheezing, rhonchi or rales. Abdominal: General: Bowel sounds are normal. Palpations: Abdomen is soft. Tenderness: There is no abdominal tenderness. Musculoskeletal: Cervical back: Neck supple. Right lower leg: No edema. Left lower leg: No edema. Lymphadenopathy: Cervical: No cervical adenopathy. Neurological: General: No focal deficit present. Mental Status: She is alert and oriented to person, place, and time. Cranial Nerves: Cranial nerves 2-12 are intact. Gait: Gait is intact. Psychiatric: Attention and Perception: Attention normal. Mood and Affect: Mood and affect normal. Speech: Speech normal. Behavior: Behavior normal. Behavior is cooperative. Thought Content: Thought content normal. Cognition and Memory: Cognition normal. Judgment: Judgment normal. Assessment/Plan Ananda was seen today for hypertension and hypothyroidism. Diagnoses and all orders for this visit: Benign hypertension with CKD (chronic kidney disease) stage III ([facility]) - Comprehensive metabolic panel; Future - Vitamin D 25 hydroxy; Future - Parathyroid Hormone, intact; Future - Phosphorus; Future - Magnesium; Future - CBC; Future - Uric acid; Future Check chronic kidney disease labs. Blood pressure at goal. Mixed hyperlipidemia Her insurance would only allow 1 lipid check a year. We discussed checking it again but she would have to sign a waiver and maybe liable for the cost. She would just like to wait till next year to check it. Need for immunization against influenza - Influenza, Trivalent, Adjuvanted She requests a flu shot. It was administered. COVID-19 vaccine administered - COVID-19, mRNA, LNP-S, PF, clayton-sucrose, 30 mcg/0.3 mL She would like the COVID vaccine. It was administered. Hyperglycemia - Hemoglobin A1c; Future Check A1c Primary hypertension Blood pressure at goal. Continue current regimen. Check CMP Acquired hypothyroidism TSH was at goal last visit. Will check next time. Overweight She is overweight. She would benefit from weight loss. Diet exercise and weight loss discussed. Gastroesophageal reflux disease without esophagitis She is doing well with Pepcid. Continue current regimen Chronic otitis externa of left ear, unspecified type Renew Cortisporin otic for p.r.n. use Other orders - [id number] (CORTISPORIN) otic solution; Administer 3 drops into the left ear 3 (three)times a day for 10 days. [facility] of Present illness Narrative* Matt Webb DO - 01/16/2024 9:30 AM EDT Subjective Patient ID: Ananda Izaguirre is a 78 y.o. female. Ananda presents today for recheck of her blood pressure and chronic kidney disease. She is taking her medications. She does not have any side effects that she is aware of. Since she had COVID-19 last winter she still gets occasional shortness a breath and hears herself wheezing at times at night. It is mild. She does not want any medication for it. She does not get short of breath out of the ordinary when she walks. She also started a different cholesterol medicine and would like that checked as well. She has a couple other concerns. She is having some left arm discomfort when it gets touched. She has had several surgeries on her left arm. Now when she hits her forearm against something she has pain and it jumps . Right knee pain for a few years. Pain scale 6 or 7 on a scale 1-10. She uses tylenol and topical salves with some improvement. She walks a lot and it doesn't bother her then so much. It gets worse atnight. Mostly medial and posteriorly. No locking up. It does swell a little sometimes. No injury. Hyperlipidemia This is a chronic problem. The current episode started more than 1 year ago. The problem is uncontrolled. Exacerbating diseases include chronic renal disease and hypothyroidism. Factors aggravating her hyperlipidemia include thiazides. Associated symptoms include shortness of breath. Hypertension Associated symptoms include shortness of breath. Identifiable causes of hypertension include chronic renal disease. The following portions of the patient's history were reviewed and updated as appropriate: allergies, current medications, past family history, past medical history, past social history, past surgicalhistory, problem list, and medication reconciliation was completed including current medication andpost discharge medication. Review of Systems Constitutional: Negative. HENT: Negative. Eyes: Negative. Respiratory: Positive for shortness of breath. Cardiovascular: Positive for leg swelling (in afternoon). Endocrine: Negative. Genitourinary: Negative. Musculoskeletal: Positive for arthralgias (right knee) and back pain. Neurological: Negative. Psychiatric/Behavioral: Negative. Objective Physical Exam Constitutional: General: She is not in acute distress. Appearance: She is overweight. She is not ill-appearing. HENT: Head: Normocephalic. Eyes: General: No scleral icterus. Extraocular Movements: Extraocular movements intact. Conjunctiva/sclera: Conjunctivae normal. Cardiovascular: Rate and Rhythm: Normal rate and regular rhythm. Heart sounds: Normal heart sounds. No murmur heard. Pulmonary: Effort: Pulmonary effort is normal. Breath sounds: Normal breath sounds. Musculoskeletal: Cervical back: Neck supple. No tenderness. Left knee: Bony tenderness and crepitus (Clunk noted with flexion and extension) present. No swelling, deformity, effusion, erythema, ecchymosis or lacerations. Normal range of motion. Tenderness present over the medial joint line. No LCL laxity, MCL laxity, ACL laxity or PCL laxity.Normal alignment, normal meniscus and normal patellar mobility. Normal pulse. Right lower leg: No edema. Left lower leg: No edema. Comments: Negative ballottement and apprehension tests. Lymphadenopathy: Cervical: No cervical adenopathy. Neurological: General: No focal deficit present. Mental Status: She is alert and oriented to person, place, and time. Psychiatric: Attention and Perception: Attention normal. Mood and Affect: Mood and affect normal. Speech: Speech normal. Behavior: Behavior normal. Behavior is cooperative. Thought Content: Thought content normal. Cognition and Memory: Cognition normal. Judgment: Judgment normal. Assessment/Plan Ananda was seen today for hyperlipidemia and hypertension. Diagnoses and all orders for this visit: Benign hypertension with CKD (chronic kidney disease) stage III ([facility]) - Comprehensive metabolic panel; Future Check CMP. Blood pressure is excellent. Controlling blood pressure is grant controlling progression of chronic kidney disease. Acquired hypothyroidism - Thyroid profile includes TSH FT4; Future Check TSH and T4. Mixed hyperlipidemia - Lipid panel; Future Check lipid panel to see how atorvastatin is doing. She has not sure if she stopped the fenofibrateso I wrote it out for her to stop and she will check her bottles at home. Overweight (BMI 25.0-29.9) She is overweight. She would benefit from weight loss. She is exercising. Try to reduce portions. Chronic pain of right knee - X-ray knee right 3 views; Future Pain in the right knee is getting worse. Will check an x-ray. Continue Tylenol and topical analgesics. She also wears a knee sleeve and was encouraged to continue this. Discussed further treatment such as cortisone injection but she defers. Gastroesophageal reflux disease without esophagitis She is doing well on the Pepcid. She has not taking the Protonix anymore. Continue current regimen. Hyperglycemia - Hemoglobin A1c; Future Check A1c to evaluate for type 2 diabetes. Complex regional pain syndrome type 1 of left upper extremity I suspect the pain in her left upper forearm is a complex regional pain syndrome type of issue. There is no deformity. Good range of motion. She has had several surgeries on her left upper arm. Monitor for new symptoms. [facility] History of Present illness Narrative* Matt Webb DO - 11/13/2023 10:10 AM EST Subjective SUBJECTIVE: Patient ID: Ananda Izaguirre is a 78 y.o. female who presents for a Medicare Annual Wellness exam. HPI The following portions of the patient's history were reviewed and updated as appropriate: allergies, current medications, past family history, past medical history, past social history, past surgicalhistory and problem list. AWV FLOWSHEET : Lifestyle Assessment Do you smoke or use smokeless tobacco?: No If you smoke or use smokeless tobacco, are you ready to quit?: NA Are you exposed to secondhand smoke?: No On average, how many drinks of alcohol do you consume in a week?: None Do you exercise for 30 or more minutes on average at least 3 days a week?: Sometimes Do you have any tooth, denture, or oral problems?: No Do you snore or has anyone told you that you snore?: No Do you try to eat a balanced diet?: Yes Do you experience leakage of urine, also known as urinary incontinence?: (!) Sometimes Do you have difficulty performing any of these activities? (check all that apply): None Do you have difficulty performing any of these activities? (check all that apply): None Fall Risk Fall Risk Assessment Completed?: Yes Have you fallen in the past year?: No Are you worried about falling?: (!) Yes Do you feel unsteady when standing or walking?: No Risk Stratification: Moderate Risk Depression Screening Little interest or pleasure in doing things: Not at all Feeling down, depressed, or hopeless: Not at all Trouble falling or staying asleep, or sleeping too much: Not at all Feeling tired or having little energy: Not at all Poor appetite or overeating: Not at all Feeling bad about yourself - or that you are a failure or have let yourself or your family down: Not at all Trouble concentrating on things, such as reading the newspaper or watching television: Not at all Moving or speaking so slowly that other people could have noticed. Or the opposite - being so fidgety or restless that you have been moving around a lot more than usual: Not at all Thoughts that you would be better off , or of hurting yourself in some way: Not at all PEG Scale Safety Assessment Do you have throw rugs on the floor?: No Do you feel safe at your home?: Yes Do you feel unsteady when walking?: No Are you having difficulty with driving?: No Do you have trouble seeing?: No What assistive device do you use? (check all that apply): None Hearing Assessment Do you strain or struggle to hear/understand conversations?: No Do you have trouble hearing the television or radio when others do not?: No Does your family ever voice concerns about your hearing?: No Do you wear hearing aid/s?: No Personal Health During the past 4 weeks, how would you rate your overall health?: Very Good Do you understand how to take all of your medications?: Yes How confident are you that you can control and manage most of your health problems?: Very confident In the past 12 months, how many times have you been hospitalized?: None End of Life Planning Do you have a living will?: Yes Do you have a durable power of research attorney?: Yes Cognitive Screening Do you have trouble remembering or recalling facts or events?: No Do family members or caregivers report that you have difficulty remembering things?: No Clock Drawing Test: Abnormal REVIEW OF SYSTEMS: Review of Systems Objective PHYSICAL EXAMINATION: There were no vitals filed for this visit. Physical Exam Assessment/Plan ASSESSMENT/PLAN Encounter Diagnoses Name Primary? Medicare annual wellness visit, subsequent Yes Screening for depression Health maintenance discussed. Depression screen was negative. At least 3 minute spent administering and discussing. Cognitive screening revealed impairment. She would like to investigate this further. She will come back for cognitive evaluation. She has advanced directives in place. Return in about 1 year (around 11/13/2024). [facility] NoteDATE OF PROCEDURE: 03/21/2023 SURGEON: Chris Garcia MD SEDATION: Fentanyl 100 micrograms IV. Versed 8 mg IV. PREOPERATIVE DIAGNOSIS: Personal history of colon polyps. POSTOPERATIVE DIAGNOSIS: Normal colonoscopy. PROCEDURE: Total colonoscopy. INDICATIONS: Ananda is a 77-year-old lady who underwent a colonoscopy last year. She was found to have a small fleshy polyp in the distal rectum. 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 She underwent an anoscopy on the office soon after that to ensure that all of the polyp had been removed. No residual polyp was identified. She comes today for a follow-up colonoscopy. She has noticed no blood per rectum or change in her bowel habits. FINDINGS: The scope was advanced to the entrance of the cecum. The prep was good. She did have a lot of spasm in the sigmoid colon. The exam was otherwise unremarkable. No polyps were seen. The area of the previous polypectomy looked good. PROCEDURE: The patient was placed in the left lateral position and IV sedation was given. A digital rectal examination was performed that revealed an empty vault with no mass. The colonoscope was then introduced and advanced proximally under direct vision. She had some rather persistent spasm in the sigmoid colon. Passage through this area was somewhat slow and then there was a fair amount of resistance trying to advance the scope more proximally. We were able to work our way around to the proximal transverse colon. We then had to apply some counter-pressure, and change her from the left lateral to right lateral position. We were able to get down to the entrance of the cecum, but did not fall down into the cecum itself. No lesions were seen in it. The scope was then gradually withdrawn and the mucosa was closely examined. There was no gross inflammation. No polyps or masses were seen. She did have some persistent spasm in the sigmoid colon. The rectum was examined with the scope both straight and retroflexed. It appeared unremarkable. The area of the previous polypectomy looked good. There was no evidence of residual or recurrent lesion. She tolerated the procedure well. It is anticipated that she will be discharged to home later today. Chris Garcia M.D. JOB #: [id number] [Electronically Signed on: 03/23/2023 12:36 EDT] Chris Garcia MD [Verified on: 03/23/2023 12:36 EDT] Chris Garcia MD [Transcribed on: 03/21/2023 11:37 EDT] [facility]06-14-2023 [facility] SURGERY Clinical Discharge Summary PERSON INFORMATION Name ANANDA IZAGUIRRE Age 77 Years 1945 Sex FEMALE Language Egyptian PCP MATT WEBB Marital Status Phone Med Service Ambulatory Surgery Acct# Arrival 03/21/2023 08:58:28 Visit Reason [id number] OF POLYPS Acuity LOS 033 03:11 Address: [address] [place] [address] Comment: PROVIDER INFORMATION VITALS INFORMATION Vital Sign Triage Latest Temp Oral Temp Temporal Temp Intravascular Temp Axillary Temp Rectal 02 Sat 99 % 96 % Respiratory Rate Peripheral Pulse Rate Apical Heart Rate Blood Pressure / 67 mmHg / 54 mmHg Comment: MEDICAL INFORMATION Allergy Info: [place]; codeine Prescriptions Given: amLODIPine (amLODIPine 10 mg oral tablet) 1 tab(s) Oral every day. Refills: 2. aspirin (aspirin 81 mg oral tablet) 1 tab(s) Oral every day. bisoprolol-hydrochlorothiazide (bisoprolol-hydrochlorothiazide 10 mg-6.25 mg oral tablet) 1 tab(s) Oral every day. Refills: 3. cetirizine (ZyrTEC 10 mg oral tablet) 1 tab(s) Oral every day as needed for allergy symptoms. Refills: 0. cholecalciferol (Vitamin D3 1000 intl units oral capsule) 2 cap(s) Oral every day. fenofibrate (fenofibrate 54 mg oral tablet) 1 tab(s) Oral every day. Refills: 3. levothyroxine (levothyroxine 75 mcg (0.075 mg) oral tablet) 1 tab(s) Oral every day. Refills: 3. losartan (losartan 100 mg oral tablet) 1 tab(s) Oral every day. meclizine (meclizine 12.5 mg oral tablet) 1 tab(s) Oral 3 times a day as needed for dizziness. multivitamin (Multivitamin, generic) 1 tab(s) Oral every day. omega-3 polyunsaturated fatty acids ([place]-3 oral capsule) 1 tab(s) Oral every day. pantoprazole (pantoprazole 40 mg oral delayed release tablet) 1 tab(s) Oral every day. Refills: 3. pravastatin (pravastatin 20 mg oral tablet) 1 tab(s) Oral every day. Refills: 2. sucralfate (Carafate 1 g oral tablet) 1 tab(s) Oral four times a day (before meals and at be. Refills: 0. ubiquinone (Q-Sorb Co Q-10 oral capsule) 1 cap(s) Oral every day. Medication List: Medications to Continue That Have Not Changed Other Medications amLODIPine (amLODIPine 10 mg oral tablet) 1 tab(s) Oral every day. Refills: 2. aspirin (aspirin 81 mg oral tablet) 1 tab(s) Oral every day. bisoprolol-hydrochlorothiazide (bisoprolol-hydrochlorothiazide 10 mg-6.25 mg oral tablet) 1 tab(s) Oral every day. Refills: 3. cetirizine (ZyrTEC 10 mg oral tablet) 1 tab(s) Oral every day as needed for allergy symptoms. Refills: 0. cholecalciferol (Vitamin D3 1000 intl units oral capsule) 2 cap(s) Oral every day. fenofibrate (fenofibrate 54 mg oral tablet) 1 tab(s) Oral every day. Refills: 3. levothyroxine (levothyroxine 75 mcg (0.075 mg) oral tablet) 1 tab(s) Oral every day. Refills: 3. losartan (losartan 100 mg oral tablet) 1 tab(s) Oral every day. meclizine (meclizine 12.5 mg oral tablet) 1 tab(s) Oral 3 times a day as needed for dizziness. multivitamin (Multivitamin, generic) 1 tab(s) Oral every day. omega-3 polyunsaturated fatty acids ([place]-3 oral capsule) 1 tab(s) Oral every day. pantoprazole (pantoprazole 40 mg oral delayed release tablet) 1 tab(s) Oral every day. Refills: 3. pravastatin (pravastatin 20 mg oral tablet) 1 tab(s) Oral every day. Refills: 2. sucralfate (Carafate 1 g oral tablet) 1 tab(s) Oral four times a day (before meals and at be. Refills: 0. ubiquinone (Q-Sorb Co Q-10 oral capsule) 1 cap(s) Oral every day. Medications to Continue That Have Not Changed Other Medications amLODIPine (amLODIPine 10 mg oral tablet) 1 tab(s) Oral every day. Refills: 2. aspirin (aspirin 81 mg oral tablet) 1 tab(s) Oral every day. bisoprolol-hydrochlorothiazide (bisoprolol-hydrochlorothiazide 10 mg-6.25 mg oral tablet) 1 tab(s) Oral every day. Refills: 3. cetirizine (ZyrTEC 10 mg oral tablet) 1 tab(s) Oral every day as needed for allergy symptoms. Refills: 0. cholecalciferol (Vitamin D3 1000 intl units oral capsule) 2 cap(s) Oral every day. fenofibrate (fenofibrate 54 mg oral tablet) 1 tab(s) Oral every day. Refills: 3. levothyroxine (levothyroxine 75 mcg (0.075 mg) oral tablet) 1 tab(s) Oral every day. Refills: 3. losartan (losartan 100 mg oral tablet) 1 tab(s) Oral every day. meclizine (meclizine 12.5 mg oral tablet) 1 tab(s) Oral 3 times a day as needed for dizziness. multivitamin (Multivitamin, generic) 1 tab(s) Oral every day. omega-3 polyunsaturated fatty acids ([place]-3 oral capsule) 1 tab(s) Oral every day. pantoprazole (pantoprazole 40 mg oral delayed release tablet) 1 tab(s) Oral every day. Refills: 3. pravastatin (pravastatin 20 mg oral tablet) 1 tab(s) Oral every day. Refills: 2. sucralfate (Carafate 1 g oral tablet) 1 tab(s) Oral four times a day (before meals and at be. Refills: 0. ubiquinone (Q-Sorb Co Q-10 oral capsule) 1 cap(s) Oral every day. Medications to Continue That Have Not Changed Other Medications amLODIPine (amLODIPine 10 mg or (more content not included)...[facility] 05-04-2022 NoteEntered by Lenka Cole RN on May 04, 2022 08:29:47 EDT From: Lenka Cole RN To: [facility] Sent: 05/04/2022 08:29:47 EDT Subject: Medication Management Not Approved: Patient no longer under Prescriber care amLODIPine (AMLODIPINE BESYLATE TABS 10MG) TAKE 1 TABLET DAILY Qty: 90 tab(s) Days Supply: 0 Refills: 3 Substitutions Allowed Route To Pharmacy - [facility] Signed by Lenka Cole RN From: [facility] To: Bhupinder Lara MD Sent: May 04, 2022 2:44:18 AM CDT Subject: Medication Management Due: May 05, 2022 12:02:33 AM CDT On Hold Pending Signature Drug: amLODIPine (amLODIPine 10 mg oral tablet), TAKE 1 TABLET DAILY Quantity: 90 tab(s) Days Supply: 0 Refills: 3 Substitutions Allowed Notes from Pharmacy: Dispensed Drug: amLODIPine (amLODIPine 10 mg oral tablet), TAKE 1 TABLET DAILY Quantity: 90 tab(s) Days Supply: 0 Refills: 3 Substitutions Allowed Notes from Pharmacy: [facility] note* Diagnosis Primary hypertension- Primary Unspecified essential hypertension Subacute cough Hoarseness Dysphonia Neurodermatitis Lichenification and lichen simplex chronicus [facility] Diagnosis Acquired hypothyroidism Unspecified hypothyroidism [facility]* Diagnosis Primary hypertension Unspecified essential hypertension [facility]* Diagnosis Medicare annual wellness visit, subsequent- Primary Screening for depression [facility]* Diagnosis Acquired hypothyroidism Unspecified hypothyroidism [facility]* Diagnosis Medicare annual wellness visit, subsequent- Primary Screening for depression [facility]* Diagnosis Benign hypertension with CKD (chronic kidney disease) stage III ([facility])- Primary Benign hypertensive kidney disease with chronic kidney disease stage I through stage IV, or unspecified Acquired hypothyroidism Unspecified hypothyroidism Mixed hyperlipidemia Overweight (BMI 25.0-29.9) Overweight Chronic pain of right knee Gastroesophageal reflux disease without esophagitis Esophageal reflux Hyperglycemia Other abnormal glucose Complex regional pain syndrome type 1 of left upper extremity [facility]* Diagnosis Primary hypertension Unspecified essential hypertension [facility]* Diagnosis Benign hypertension with CKD (chronic kidney disease) stage III ([facility]) Benign hypertensive kidney disease with chronic kidney disease stage I through stage IV, or unspecified [facility]* Diagnosis Benign hypertension with CKD (chronic kidney disease) stage III ([facility])- Primary Benign hypertensive kidney disease with chronic kidney disease stage I through stage IV, or unspecified Mixed hyperlipidemia Need for immunization against influenza Need for prophylactic vaccination and inoculation against influenza COVID-19 vaccine administered Hyperglycemia Other abnormal glucose Primary hypertension Unspecified essential hypertension Acquired hypothyroidism Unspecified hypothyroidism Overweight Gastroesophageal reflux disease without esophagitis Esophageal reflux Chronic otitis externa of left ear, unspecified type [facility]* Diagnosis Benign hypertension with CKD (chronic kidney disease) stage III ([facility])- Primary Benign hypertensive kidney disease with chronic kidney disease stage I through stage IV, or unspecified Dermatitis Contact dermatitis and other eczema, due to unspecified cause [facility]* Diagnosis 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, or unspecified [facility] Diagnosis Acquired hypothyroidism Unspecified hypothyroidism [facility]* Diagnosis Cognitive impairment- Primary Unspecified persistent mental disorders due to conditions classified elsewhere 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, or unspecified Acquired hypothyroidism Unspecified hypothyroidism [facility] information available [facility] Work Phone: Evaluation note* Diagnosis 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, or unspecified [facility]* Diagnosis 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, or unspecified [facility]* Diagnosis 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)- Primary Benign hypertensive kidney disease with chronic kidney disease stage I through stage IV, or unspecified Mixed hyperlipidemia Primary hypertension Unspecified essential hypertension Gastroesophageal reflux disease without esophagitis Esophageal reflux Overweight Chest pain, unspecified type [facility] Diagnosis Acquired hypothyroidism Unspecified hypothyroidism [facility] Diagnosis Acquired hypothyroidism Unspecified hypothyroidism documented in this [facility] filedocument[facility] this [facility] filedocumented in this [facility] on filedocumented in this [facility] filedocumented in this [facility] filedocumented in [facility] filedocumented in this [facility] filedocumented in [facility] filedocumented in this [facility] filed[facility] this [facility] filed[facility]ed in this encounter [facility] Summary Purpose Family History No Family History Records FoundNo Family History Records FoundNo Family History Records FoundNo Family History Records FoundNo Family History Records FoundNo Family History Records Found Advance Directives Advance Directive Response Recorded Date/ Time Advance Directives No September 2:32pm Chief Complaint and Reason for Visit Chief Complaint Admit Date Urinary frequency, dysuria March 09 6:17pm Reason for Visit Admit Date Acute UTI March 09, 2025 6:17p m Additional Source Comments INFORMATION SOURCE (unrecogn ized section and content) DATE CREATED AUTHOR 07/20/2022 [facility] DATE CREATED AUTHOR AUTHOR'S ORGANIZ ATION 03/27/2023 [facility] DATE CREATED AUTHOR AUTHOR'S ORGANIZ ATION 02/02/2024 [facility] DATE CREATED AUTHOR AUTHOR'S ORGANIZ ATION 12/20/2024 [facility] DATE CREATED AUTHOR AUTHOR'S ORGANIZ ATION 03/12/2025 [facility] DATE CREATED AUTHOR AUTHOR'S ORGANIZ ATION 03/21/2025 [facility] Reason for Visit (unrecogniz ed section and content) Reason Comments Rash Hypertension Reason Onset Date Comments Med Refill 01/30/2024 Reason Comments maw Reason Onset Date Comments Med Refill 02/26/2024 Reason Comments Med Refill Reason Comments medicare annual wellness Reason Comments Hyperlipidemia Hypertension Reason Comments Hypertension Hypothyroidism Reason Comments 1 month recheck Reason Onset Date Comments Med Refill 12/15/2024 Reason Comments Follow-up From [facility] Reason Comments recheck Care Teams (unrecognized sec tion and content) 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 Relationship Specialty Start Date End Date Matt Webb DO [address] [place] [address] PCP - General Family Medicine 07/26/22 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 Relationship Specialty Start Date End Date Matt Webb DO [address] [place] [address] PCP - General Family Medicine 07/26/22 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 Relationship Specialty Start Date End Date RachelitaliaMatt mcallister DO [address], [place] [address] PCP - General Family Medicine 07/26/22 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 Relationship Specialty Start Date End Date IsaMatt mcallister DO [address] [place] [address] PCP - General Family Medicine 07/26/22 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 Relationship Specialty Start Date End Date JonMatt [address] [place] [address] PCP - General Family Medicine 07/26/22 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 Relationship Specialty Start Date End Date IsaMatt mcallister [address], [place] [address] PCP - General Family Medicine 07/26/22 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 Relationship Specialty Start Date End Date RachelitaliaMatt mcallister [address] [place] [address] PCP - General Family Medicine 07/26/22 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 Relationship Specialty Start Date End Date JonMatt [address] [place] [address] PCP - General Family Medicine 07/26/22 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 Relationship Specialty Start Date End Date JonMatt [address] [place] [address] PCP - General Family Medicine 07/26/22 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 Relationship Specialty Start Date End Date Matt Webb DO [address] [place] [address] PCP - General Family Medicine 07/26/22 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 Relationship Specialty Start Date End Date Matt Webb DO [address], [place] [address] PCP - General Family Medicine 07/26/22 Team Status: Active Member Role Status Dates Matt Webb DO Primary Care Provider Active Team Status: Inactive Member Role Status Dates Gemini Silva APRN Attending Provider Active Start: March 09, 2025 End: March 09, 2025 Matt Webb DO Primary Care Provider Active Start: March 09, 2025 End: March 09, 2025 Team Status: Inactive Member Role Status Dates Gemini Silva APRN Attending Provider Active Start: March 09, 2025 End: March 09, 2025 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 Relationship Specialty Start Date End Date Matt Webb DO [address], [place] [address] PCP - General Family Medicine 07/26/22 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 Relationship Specialty Start Date End Date Matt Webb DO [address], [place] [address] PCP - General Family Medicine 07/26/22 Goals (unrecognized section and content) Goals may be documented in a n alternate section FOR RECORDS PERTAINING TO PATIENTS WHO ARE OR HAVE BEEN ENROLLED IN A CHEMICAL DEPENDENCY/SUBSTANCEABUSE PROGRAM, SOME INFORMATION MAY BE OMITTED. This clinical summary was aggregated from multiple sources. Caution should be exercised in using it in the provision of clinical care. This summary normalizes information from multiple sources, and as a consequence, information in this document may materially change the coding, format and clinical context of patient data. In addition, data may be omitted in some cases. CLINICAL DECISIONS SHOULD BE BASED ON THE PRIMARY CLINICAL RECORDS. [facility]. provides no warranty or guarantee of the accuracy or completeness of information in this document.
--- NOTE | 2025-05-16 08:24 | XR_ITS ---
[address] [address] Patient Name: ALMAS IZAGUIRRE MRN: [id number] date: 1945 Sex: F Assigned Patient Location: ER Current Patient Location: ER Accession/Order Number: [id number] Exam Date: 05/16/2025 08:54 Report Date: 05/16/2025 08:54 At the request of: SUNG QUINTANA MD Procedure: XR knee LT 4V LEFT KNEE - 4 views CLINICAL HISTORY: pain COMPARISON: None FINDINGS: No knee joint effusion. Mild degenerative changes with chondrocalcinosis of the menisci. No acute bony process. XR/XR knee LT 4V IMPRESSION: MILD DEGENERATIVE CHANGES OF THE LEFT KNEE WITHOUT ACUTE BONY PROCESS. Impression dictated by: Twin Gleason Jr., D.O. 05/16/2025 8:54 AM Dictation Location: [place] [address] Electronically authenticated by: [id number] Y Date: 05/16/2025 08:54
--- NOTE | 2025-05-16 08:25 | ED_ITS ---
HPI - Extremity Problem General Chief complaint: Extremity Problem, Nontraumatic Stated complaint: L KNEE PAIN Time Seen by Provider: 05/16/25 08:19 Source: patient Mode of arrival: Wheelchair Limitations: no limitations History of Present Illness HPI Narrative: The patient presented to the ER with left knee pain started almost 3 days ago when she was trying to stand up, pain is worse with movement and bending the knee and she denies any fall or injury Related Data Home Medications ?Medication ?Instructions ?Recorded ?Confirmed albuterol sulfate 90 mcg/actuation inhalation 10/14/24 aerosol inhaler amlodipine 10 mg tablet mg 10/14/24 aspirin 81 mg capsule 81 mg PO DAILY 10/14/2405/01 atorvastatin 20 mg tablet mg 10/14/24 atorvastatin 40 mg tablet mg 10/14/24 bisoprolol 10 1 tab PO DAILY 10/14/2405/01 mg-hydrochlorothiazide 6.25 mg tablet empagliflozin 10 mg tablet mg 10/14/24 (Jardiance) levothyroxine 75 mcg tablet mcg 10/14/24 losartan 100 mg tablet (Cozaar) 100 mg PO DAILY 10/14/24 Previous Rx's ?Medication ?Instructions ?Recorded dexamethasone 4 mg tablet 4 mg PO BID 5 days #10 tabs 09/06/23 levofloxacin 750 mg tablet 750 mg PO DAILY 5 days #5 t abs 09/06/23 ondansetron 4 mg disintegrating 4 mg PO Q6H PRN nausea and 09/06/23 tablet vomiting #12 tabs diclofenac sodium 50 mg 50 mg PO Q12H PRN pain #20 t abs 05/16/25 tablet,delayed release Allergies Allergy/AdvReac Type Severity Reaction Status Date / Time codeine Allergy Severe fast heart Verified 10/14/24 10:06 rate Review of Systems ROS Status of ROS 10 or more systems reviewed and unremark able except as noted in history and below PFSH PFSH Social History Little interest or pleasure in doing things: not at all Feeling down, depressed, or hopeless: not at all Exam Narrative Exam Narrative: Nurses notes and vital signs reviewed and patient is not hypoxic. General: Well-appearing and in no apparent distress. Skin: Warm, dry, no pallor noted. No rash. Left knee examination: There is a crepitus in the left knee there is no significant effusion the patient have no ecchymosis there is pain with flexion and the patient have decreased range of movement due to pain. Negative anterior and posterior drawer test Constitutional Vital Signs, click to edit/add: Last Vital Signs Temp 98.2 F 05/16/25 08:15 Pulse 67 05/16/25 08:15 Resp 18 05/16/25 08:15 BP 166/93 H 05/16/25 08:15 Pulse Ox 98 05/16/25 08:15 O2 Del Method Room Air 05/16/25 08:15 Course Vital Signs Vital signs: Vital Signs Temperature 98.2 F 05/16/25 08:15 Pulse Rate 67 05/16/25 08:15 Respiratory Rate 18 05/16/25 08:15 Blood Pressure 166/93 H 05/16/25 08:15 Pulse Oximetry 98 05/16/25 08:15 Oxygen Delivery Method Room Air 05/16/25 08:15 Temperature 98.2 F 05/16/25 08:15 Pulse Rate 67 05/16/25 08:15 Respiratory Rate 18 05/16/25 08:15 Blood Pressure 166/93 H 05/16/25 08:15 Pulse Oximetry 98 05/16/25 08:15 Oxygen Delivery Method Room Air 05/16/25 08:15 MDM - Extremity (Nontraumatic) MDM Narrative Medical decision making narrative: X-ray of the knee showed no acute pathology The patient also requested a urinalysis because she was having some frequency her urine did show some elevated sugar and her blood sugar is 120 and she just had breakfast before coming to the ER Right now the patient will just follow-up with orthopedic as outpatient for further evaluation of her knee pain after the immobilizer was placed and the patient also started on Voltaren Patient have a cane at home that will help her move around with the knee immobilizer The patient is to follow up with primary care physician in next 2-3 days or to return to the emergency department should any of the signs or symptoms worsen or new symptoms develop. The patient agrees with the following Diagnosis and Treatment plan and the patient will be discharged home. Lab Data Labs: Lab Results 05/16/25 05/16/25 Range/Units 08:52 09:18 Urine Color Lt. yellow (YELLOW) Urine Clarity Clear (CLEAR) Urine pH 6.5 (5.0-9.0) Ur Specific [place] 1.010 (1.005-1.025) Urine Protein Negative (NEG/TRACE) mg/dL Urine Glucose (UA) >=1000 A (NEGATIVE) mg/dL Urine Ketones Negative (NEGATIVE) mg/dL Urine Occult Blood Negative (NEGATIVE) Urine Nitrite Negative (NEGATIVE) Urine Bilirubin Negative (NEGATIVE) Urine Urobilinogen 0.2 (0.2-1.0) EU/dL Ur Leukocyte Esterase Negative (NEGATIVE) POC Glucose 123 H (74-106) mg/dL Discharge Plan Discharge Chief Complaint: Extremity Problem, Nontraumatic Clinical Impression: Acute knee pain, Meniscal injury Patient Disposition: Home, Self-Care Time of Disposition Decision: 09:41 Condition: Good Prescriptions / Home Meds: New diclofenac sodium 50 mg tablet,delayed release (DR/EC) 50 mg PO Q12H PRN (Reason: pain) Qty: 20 0RF No Action levofloxacin 750 mg tablet 750 mg PO DAILY 5 Days Qty: 5 0RF dexamethasone 4 mg tablet 4 mg PO BID 5 Days Qty: 10 0RF ondansetron 4 mg tablet,disintegrating 4 mg PO Q6H PRN (Reason: nausea and vomiting) Qty: 12 0RF atorvastatin 40 mg tablet levothyroxine 75 mcg tablet amlodipine 10 mg tablet Jardiance 10 mg tablet losartan [Cozaar] 100 mg tablet 100 mg PO DAILY bisoprolol-hydrochlorothiazide 10-6.25 mg tablet 1 tab PO DAILY aspirin 81 mg capsule 81 mg PO DAILY atorvastatin 20 mg tablet albuterol sulfate 90 mcg/actuation HFA aerosol inhaler INHALATION Print Language: Citizen Of [place] Instructions: Knee Pain (ED) Referrals: AYAH GONZALEZ [Physician, Orthopedics] - 1 week AGUSTIN BOLTON [Primary Care Provider, Family Practice] - 1 week Discharge Date/Time: 05/16/25 09:58
[2025-05-16] MEDS: KETOROLAC TROMETHAMINE 30 MG/ML VIAL 15 MG IM (08:46)
[2025-05-16 09:04] LABS: Glucose Urine UA >=1000 mg/dL (NEGATIVE)
== END 2025-05-16 09:58 | disposition home or self-care (01) ==
PROVIDERS: Emergency Provider Emergency Medicine; PCP Family Medicine
DX: M25.562 Pain in left knee (principal); R35.0 Frequency of micturition
CPT/HCPCS: 36415; 73564; 81003; 82948; 96372; 99285; J1885

== ENCOUNTER 2025-09-30 12:05 | Emergency (ER) | payer MEDICARE, OTHER, SELFPAY ==
--- OUTSIDE RECORDS SUMMARY | 2025-09-18 10:30 | XMS_ITS | Encounter Summary ---
Author Organization [facility] tem Address [facility] – [id number] [address] [place] [address] Care Team Providers Care Manager Engagement Name Role Phone Matt Webb DO Primary Care Provider [phone] Reason for Visit * ReasonComments6 monthdiscuss a referral to urologist Encounter Details DateTypeDepartmentCare Team (Latest Contact Info)Vkgjszovrhc40/12/2025 10:30 AM ESTOffice Visit [facility] Internal Medicine - Family Medicine [address] [place] [address] Matt Webb DO [address] [facility] [place], [place] [id number] Benign hypertension with CKD (chronic kidney disease) stage III ([facility]) (Primary Dx); Hyperglycemia; Other microscopic hematuria; Overweight; BMI 29.0-29.9,adult Social History Tobacco UseTypesPacks/DayYears UsedDateSmoking Tobacco: [id number] - 1991Smokeless Tobacco: NeverAlcohol UseStandard Drinks/WeekCommentsYes0 (1 standard drink = 0.6 oz pure alcohol)OCCASIONALAHC UtilitiesAnswerDate Recorded In the past 12 months has the [employer], gas, oil, or water [employer] threatened to shut off services in your home?No09/14/2023Social Connection and Isolation Panel AnswerDate RecordedIn a typical week, how many times do you talk on the phone with family, friends, or neighbors?More than three times a week04/02/2023How often do you get together with friends or relatives?More than three times a week 04/02/2023How often do you attend faith or confucianist services?More than 4 times per year04/02/2023o you belong to any clubs or organizations such as faith groups, unions, fraternal or athletic groups, or school groups?Yes04/02/2023How often do you attend meetings of the clubs or organizations you belong to?More than 4 times per year04/02/2023re you , , , , never , or living with a partner?Pwlmhmh4404/02/2023UDIT-CAnswerDate RecordedQ1: How often do you have a drink containing alcohol?Monthly or less 04/02/2023Q2: How many drinks containing alcohol do you have on a typical day when you are drinking?1 or Q3: How often do you have six or more drinks on one occasion?Never04/02/2023Overall Financial Resource Strain (CARDIA) AnswerDate RecordedHow hard is it for you to pay for the very basics like food, housing, medical care, and heating?Not hard at all04/02/2023HQ-2AnswerDate RecordedTotal Cgdms76011/19/2024[facility] Occupational Health - Occupational Stress QuestionnaireAnswerDate RecordedDo you feel stress - tense, restless, nervous, or anxious, or unable to sleep at night because yourmind is troubled all the time - these days?Only a qvkkrw7404/02/2023Exercise Vital Sign AnswerDate RecordedOn average, how many days per week do you engage in moderate to strenuous exercise (like a brisk walk)?4 days04/02/2023On average, how many minutes do you engage in exercise at this level?50 min04/02/2023RAPARE - TransportationAnswerDate RecordedIn the past 12 months, has lack of transportation kept you from medical appointments or from getting medications?No 04/02/2023In the past 12 months, has lack of transportation kept you from meetings, work, or from getting things needed for daily living?No04/02/2023 Housing InstabilityAnswerDate RecordedAre you worried or concerned that in the next two months you may not have stable housing that you own, rent or stay in as a part of a household?No3ChildcareAnswerDate RecordedDo problems getting children's tutor make it difficult for you to work or study?No04/02/2023 EmploymentAnswerDate RecordedDo you need help finding a local career center and/or a training program?No04/02/2023Hunger ScreeningAnswerDate RecordedWithin the past 12 months we worried whether our food would run out before we got money to buy more.Never True09/18/2025Within the past 12 months the food we bought just didn't last and we didn't have money to get more.Never True09/18/2025 Purpose - LifeAnswerDate RecordedI have a purpose and direction in my life. Strongly Agree04/02/2023CommentsUnknownSex and Gender InformationValue Date RecordedSex Assigned at BirthNot on fileLegal BmmEzbgyf62/04/2015 1:04 PM EDTGender IdentityNot on fileSexual OrientationNot on filedocumented as of this encounter Last Filed Vital Signs Vital SignReadingTime TakenCommentsBlood Zlcouxds282/7809/18/2025 10:23 AM EST Trxbq073509/18/2025 10:23 AM OUEYgkmoeurcow28.4 ??C (97.6 ??F)09/18/2025 10:23 AM ESTRespiratory Ojog678311/19/2024 10:23 AM ESTOxygen Xieonaxtvg31%09/18/2025 10:23 AM ESTInhaled Oxygen Concentration--Bezmdm28.2 kg (150 lb 6.4 oz)09/18/2025 10:23 AM XAMYzszze382.4 cm (5')09/18/2025 10:23 AM ESTBody Mass Index29.37 09/18/2025 10:23 AM ESTdocumented in this encounter Functional Status * BPAnswerDate of PpehsqfaiqFacueu935/7809/18/2025 10:23 AM Yadira Villalta CMA * TempAnswerDate of QzpmwsfkcbZgrosw21.6111/19/2024 10:23 AM Yadira Villalta CMA * Temp srcAnswerDate of TaksfxdpdxCfjzotWodxiihb98/09/2025 10:23 AM Yadira Villalta CMA * PulseAnswerDate of BxqkzkmvzoKgyoqk6674/12/2025 10:23 AM Yadira Villalta CMA * RespAnswerDate of OurcpjcnobVmluck3761/12/2025 10:23 AM Yadira Villalta CMA * JsQ9VicdmdKzlc of VshtevkfouCpurql1121/12/2025 10:23 AM Yadira Villalta CMA * HeightAnswerDate of YixuychoucMnwiye5434/12/2025 10:23 AM Yadira Villalta CMA * WeightAnswerDate of MfgzfipbcxMxnvdj6628. 10:23 AM Yadira Villalta CMA * Food InsecurityQuestionAnswerDate of AssessmentAuthorWithin the past 12 months the food we bought just didn't last and we didn't have money to get more.Never True09/18/2025 10:23 AM Yadira Villalta CMAWithin the past 12 months we worried whether our food would run out before we got money to buy more.Never True09/18/2025 10:23 AM Yadira Villalta CMA * BEE (kcal)AnswerDate of DmchavpwghCmszmy943949/12/2025 10:23 AM Yadira Villalta CMA * BSA (Calculated - sq m)AnswerDate of AssessmentAuthor1.7111/19/2024 10:23 AM Yadira Villalta CMA * BMI (Calculated)AnswerDate of QaawwyppokSedvuv02. 10:23 AM Yadira Man CMA * Weight in (lb) to have BMI = 25AnswerDate of PrmaitprudHcyfsf606.7111/19/2024 10:23 AM Yadira Villalta CMA * Vitals TimerQuestionAnswerDate of AssessmentAutrRestvestaburg Vitals TimerYes 09/18/2025 10:23 AM Yadira Villalta CMA * Over the last 2 weeks, how often have you been bothered by any of the following problems?QuestionAnswerDate of AssessmentAuthorIf you checked off any problems, how difficult have these problems made it for you to do your work,take care of things at home, or get along with other people?Not difficult at all09/18/2025 10:23 AM Yadira Villalta CMALittle interest or pleasure in doing xhwvoy426/12/2025 10:23 AM Yadira Villalta CMAFeeling down, depressed, or fvkudbgg703/12/2025 10:23 AM Yadira Villalta CMATotal Score0 09/18/2025 10:23 AM Yadira Villalta CMA * BPAnswerDate of BqiyezjiusNrbldm368/7809/18/2025 10:23 AM Yadira Villalta CMA * TempAnswerDate of NzwtagqpxoNyhjhs73.612 10:23 AM Yadira Villalta CMA * Temp srcAnswerDate of IdpwjquqwvEzemfqVcghgomk45/12/2025 10:23 AM Yadira Villalta CMA * PulseAnswerDate of OeuyeuewxrOyatfk2253/12/2025 10:23 AM Yadira Villalta CMA * RespAnswerDate of UxmrrokvncRrvvdm4260/12/2025 10:23 AM Yadira Villalta CMA * YxM2ObriclCojs of YlejqlkebjCqdysg7403/12/2025 10:23 AM Yadira Villalta CMA * HeightAnswerDate of JvpptqeggwBvopsa2128 10:23 AM Yadira Villalta CMA * WeightAnswerDate of HabexjqelwGzrstc5942.412 10:23 AM Yadira Villalta CMA * BEE (kcal)AnswerDate of QwcepbascrJzgyiu018040/12/2025 10:23 AM Yadira Villalta CMA * BSA (Calculated - sq m)AnswerDate of AssessmentAuthor1.7111/19/2024 10:23 AM Yadira Villalta CMA * BMI (Calculated)AnswerDate of LyzqpsxhlmMogqnq06.412 10:23 AM Yadira Man CMA * Weight in (lb) to have BMI = 25AnswerDate of DhuqpnpnixXzidok573.712 10:23 AM Yadira Villalta CMA documented as of this encounter Mental Status * BPAnswerEntry NrbbVfilff767/7809/18/2025 10:23 AM Yadira Villalta CMA * TempAnswerEntry ZqrnUktwep07.6111/19/2024 10:23 AM Yadira Villalta CMA * Temp srcAnswerEntry MrolFvkrdrFdcdkrkr58/12/2025 10:23 AM Yadira Villalta CMA * PulseAnswerEntry ZxwwZyiitq2015/12/2025 10:23 AM Yadira Villalta CMA * RespAnswerEntry HdsqUxbrsh6406 10:23 AM Yadira Villalta CMA * DdF3DicnmgDmsps UhuyGomedx5702/12/2025 10:23 AM Yadira Villalta CMA documented in this encounter Progress Notes * Matt Webb, DO - 09/18/2025 10:30 AM EST Subjective Patient ID: Ananda Pitts is a 80 y.o. female. Ananda presents today for a CV rechecked and problem visit. She has been to the urgent care 3 times since March. It seems to happen every other month. The 1st time she was having burning with urination and she saw blood. She was diagnosed with a urinary tract infection and given Cipro. She did have 2 urine cultures done which actually was unremarkable. She has had 2 courses of antibiotics. She has been taking Jardiance for chronic kidney disease and was not having any problems up until the last 6 months. She feels okay right now. During 1 of those visits her blood sugar was noted to be in the 140's and told she might have diabetes. She is concerned about this and would like to be checked for diabetes. The following portions of the patient's history were reviewed and updated as appropriate: allergies, current medications, past family history, past medical history, past social history, past surgicalhistory, problem list, and medication reconciliation was completed including current medication andpost discharge medication. Review of Systems Constitutional: Negative. Respiratory: Negative. Cardiovascular: Negative. Gastrointestinal: Negative. Genitourinary: Negative. Psychiatric/Behavioral: Negative. Objective Physical Exam Vitals reviewed. Exam conducted with a printmaker present (Niece and Anahi Dave MS3). Constitutional: General: She is not in acute distress. Appearance: She is overweight. She is not ill-appearing. Eyes: General: No scleral icterus. Extraocular Movements: [...] abdominal tenderness. Musculoskeletal: Cervical back: Neck supple. Neurological: General: No focal deficit present. Mental Status: She is alert and oriented to person, place, and time. Gait: Gait is intact. Psychiatric: Attention and Perception: Attention normal. Mood and Affect: Mood and affect normal. Speech: Speech normal. Behavior: Behavior normal. Behavior is cooperative. Thought Content: Thought content normal. Judgment: Judgment normal. Assessment/Plan Ananda was seen today for 6 month and discuss a referral to urologist. Diagnoses and all orders for this visit: Benign hypertension with CKD (chronic kidney disease) stage III ([facility]) - Comprehensive metabolic panel; Future - Comprehensive metabolic panel Blood pressure is a bit high today. Goal is less than 130/80. We will check a CMP. The last couple GFR's have been greater than 60 so the Jardiance was helping. I told her to stop the Jardiance though for now. Hyperglycemia - Hemoglobin A1c; Future - Hemoglobin A1c Check A1c to see if she has developed diabetes or is a prediabetic. Other microscopic hematuria She does have microscopic hematuria. She said she did see blood the 1st time but has not seen it since. I recommended to get a urology consult but she would like to hold off and see if the blood clears up after stopping the Jardiance. We will stop the Jardiance and then recheck her urine again. Shedid have a urinalysis done last December which was negative for blood so it may just be due to the medi cation. Overweight She is overweight. She would benefit from weight loss. Patient noted to have elevated BMI and the following intervention(s) were applied: encouragement toexercise and prescribed diet education. BMI 29.0-29.9,adult documented in this encounter Plan of Treatment DateTypeDepartmentCare Team (Latest Contact Info)Uiqxnyabhaf24/23/2026 10:15 AM ESTOffice Visit [facility] [address] [place] [address] Matt Webb DO [address], [facility] [place] [address] 11/19/2025 10:00 AM ESTOffice Visit [facility] - Family Medicine [address] [place] [address] documented as of this encounter Procedures Procedure NamePriorityDate/TimeAssociated DiagnosisCommentsHEMOGLOBIN E7GZvbntjm 09/18/2025 10:58 AM EST Hyperglycemia COMPREHENSIVE METABOLIC OUMBCLcqxpyu35/12/2025 10:58 AM EST Benign hypertension with CKD (chronic kidney disease) stage III ([facility]) documented in this encounter Results * Hemoglobin A1c (09/18/2025 10:58 AM EST)ComponentValueRef RangeTest Method Analysis TimePerformed AtPathologist SignatureHEMOGLOBIN A1C5.64.4 - 5.6 % 09/18/2025 7:50 PM [facility]ATORYComment: ?ADA Guidelines ?Result ?HgbA1c ? Normal : ? less than 5.7 % ? Prediabetes : ?5.7 % ??to 6.4 % Diabetes : > 6.4 % ?Use with caution in patients with abnormal hemoglobin variants as ??the half-life of red blood cells and in vivo glycation rates are ??affected. EST. AVERAGE ZISWLYC852wp/dL09/18/2025 7:50 PM [facility] LABORATORYSpecimen (Source)Anatomical Location / LateralityCollection Method / VolumeCollection TimeReceived TimeBloodVenous blood / Vyioqeg7409/18/2025 10:58 AM EST09/18/2025 10:58 AM EST Narrative Authorizing ProviderResult TypeResult StatusDenpatricio May [facility] BLOOD ORDERABLESFinal ResultPerforming OrganizationAddressCity/State/ZIP CodePhone Number [facility] [address] [place] [address], * (ABNORMAL) Comprehensive metabolic panel (09/18/2025 10:58 AM EST)Component ValueRef RangeTest MethodAnalysis TimePerformed AtPathologist SignatureSODIUM 012638 - 146 mmol/L111/19/2024 6:40 PM [facility] POTASSIUM4.23.5 - 5.0 mmol/L111/19/2024 6:40 PM [facility] MEYQCAVDQVLXCUXHSF63605 - 109 mmol/L111/19/2024 6:40 PM [facility] LABORATORYCARBON GBMJYZO0256 - 32 mmol/L111/19/2024 6:40 PM [facility] LABORATORYANION YIY821 - 15 mmol/L111/19/2024 6:40 PM EST [facility]ATORYBLOOD UREA ODYDZRVK119 - 27 mg/dL09/18/2025 6:40 PM [facility] LABORATORYCREATININE0.880.40 - 1.00 mg/dL 09/18/2025 6:40 PM [facility]ORYComment:METHOD TRACEABLE TO IDCT USNVYWFPONADTKG427(H)65 - 99 mg/dL09/18/2025 6:40 PM EST [facility] MKXCVGZNVNIOAIGFO81.28.5 - 10.5 mg/dL09/18/2025 6:40 PM [facility]ORATORYTOTAL PROTEIN7.36.0 - 8.0 g/dL 09/18/2025 6:40 PM [facility] LABORATORYALBUMIN4.73.2 - 5.3 g/dL09/18/2025 6:40 PM [facility]ORATORYALKALINE MMJFFHMHJNG1380 - 130 U/L111/19/2024 6:40 PM [facility] POPACWMFQJLCF83<=41 U/L111/19/2024 6:40 PM [facility] UVRXMHQQXKQCC27(H)<=31 U/L111/19/2024 6:40 PM [facility] LABORATORYBILIRUBIN,TOTAL1.10.3 - 1.2 mg/dL09/18/2025 6:40 PM [facility]ORYEGFR Non-Race Swrcavxsu60>=60 ml/min/1.73sq.m 09/18/2025 6:40 PM [facility]ORYComment: Reported eGFR is based on the CKD-EPI 2020 equation that does not use a race coefficient. Specimen (Source)Anatomical Location / LateralityCollection Method / Volume Collection TimeReceived TimeBloodVenous blood / Xtnswxj7909/18/2025 10:58 AM EST 09/18/2025 10:58 AM EST Narrative Authorizing ProviderResult TypeResult StatusDennis G Furlong DOLAB BLOOD ORDERABLESFinal ResultPerforming OrganizationAddressCity/State/ZIP CodePhone Number [facility] [address] [place] [address], [place] [phone] documented in this encounter Visit Diagnoses Diagnosis Benign hypertension with CKD (chronic kidney disease) stage III ([facility])- Primary Benign hypertensive kidney disease with chronic kidney disease stage I through stage IV, or unspecified Hyperglycemia Other abnormal glucose Other microscopic hematuria Overweight BMI 29.0-29.9,adult documented in this encounter Additional Health Concerns AssessmentNoted TimePHQ-9 Depression Total Score: 10:23 AM ESTA Body Mass Index follow-up plan has been documented for the esozobt1909/18/2025 1:37 PM ESTdocumented as of this encounter Care Teams Team MemberRelationshipSpecialtyStart DateEnd Date Matt Webb DO [address] [facility], [facility] [place] [address] PCP - GeneralFamily Praggwss80/19/22documented as of this encounter
--- OUTSIDE RECORDS SUMMARY | 2025-09-28 10:32 | XMS_ITS | Continuity of Care Document ---
Author Organization [facility] Address [address] [place] [address] Phone Care Team Providers Care [employer] Teacher Name Role Phone Gemini Silva APRN Attending Provider NON STAFF Primary Care Provider Unavailabl e Care Teams Patient Care Team Team Status: Active Member Role/Relationship Status Dates NON STAFF Primary Care Provider Active Visit Care Team Team Status: Inactive Member Role/Relationship Status Dates Gemini Silva APRN Attending Provider Active Start: August 15, 2025 End: August 15, 2025NON STAFFPrimary Care ProviderActiveStart: August 15, 2025 End: August 15, 2025 Patient Care Team Team Status: Inactive Member Role/Relationship Status Dates Gemini Silva APRN Attending Provider Active Start: September 28, 2025 End: September 28, 2025NON STAFFPrimary Care ProviderActiveStart: September 28, 2025 End: September 28, 2025 Chief Complaint and Reason for Visit Chief Complaint Admit Date Poss uti August 15, 2025 9 :03am cough congestion September 28, 2025 1:24pm Reason for Visit Admit Date Dysuria August 15, 2025 9 :03am Allergies, Adverse Reactions, Alerts Allergen Type Severity Reaction Last Updated Verified Status codeine Allergy Moderate Palpitations September 28, 2025 2:16pm Yes Active Social History Smoking Status Status Start Date End Date Date of Observa tion Never smoked tobacco (finding) October 07, 2024 2:39pm Observation Status Observation Response Date of Response Legal Sex Female (finding) Sex [facility]igned [facility] 1944 Problems Active Problems Problem Diagnosis/Recorded Date Onset Date Stat us Influenza A October 07, 2024 3:56pm Unknown A ctive Diabetes October 07, 2024 2:14pm Unknown A ctive Hyperlipidemia October 07, 2024 2:15pm Unknown Active Hypothyroidism October 07, 2024 2:15pm Unknown Active Degenerative joint disease of left knee May 25, 8:42am Unknown Active Acute UTI March 09, 2025 6:43pm Unknown Active GERD (gastroesophageal reflux disease) October 07, 2024 2:15pm Unknown Active Hypertension October 07, 2024 2:14pm Unknown A ctive Medications Medication Status Dose Units Route Directions Qty Days Refills S tart Date Stop Date End Date Reason(s) Instructions Adherence Diclofenac Sodium 50 mg tabl et,delayed release (DR/EC) Discontinued 50 MG PO Twice daily May 24, 2025 11:00pmA[facility] 8:59amDiclofenac Sodium 50 mg tablet,delayed release (DR/EC)Gkxoik75GYMBFzdbe simar66352Ttruob 18th, 2025 8:58amComplies with drug therapyCephalexin 500 mg yftgkiaTysboanszsbw377HYIK Twice lcwyv8311Bimlaxmja 2024 11:00pmDece2024 2:28pmBenzonatate 200 mg hcvttryRbheet148DJGDNzyrv times daily as needed for gblgu72333Fzbgzerg 22nd, 2025 12:00amComplies with drug therapyLevothyroxine 75 mcg hzwybiKvxkir79 MCGPODailyDecebanner ocotillo medical center 2023 12:00amComplies with drug therapyAtorvastatin 40 mg dzeyhpFkffld38HBOQPlbffDojmeuoa 2023 12:00amComplies with drug therapy Amlodipine 10 mg vxonhlVykxun52RJTPRhdboGnfspysw 2023 12:00amComplies with drug therapyEmpagliflozin (Jardiance) 10 mg sajopjTdzozf62OCTXTixpjBlmdzvlx 2023 12:00amComplies with drug therapyFamotidine 20 mg upmaicOdexpq77GHCW DailyDetrinity [facility]2023 12:00amComplies with drug therapyBisoprolol- Hydrochlorothiazide 10-6.25 mg wirfmnFfioad9RWPCRpqwmbLcojqhqe 2023 12:00amComplies with drug therapyLosartan 100 mg msararBpfacy164HIZCDgstz October 07, 2024 12:00amComplies with drug therapyAspirin 81 mg tablet,yezhbtbyOhbsnj15WWHQIqbmjUkibxlfr 2023 12:00amComplies with drug therapyOseltamivir (Tamiflu) 75 mg sbpnylkQlwwkpicgfyw93INCQSsndu trple7893 October 07, 2024 12:00amJune 2024 5:28pmAlbuterol Sulfate 90 mcg/actuation HFA aerosol bgsnjapWhacjztynwvq1SKBOTKHFLRZHXBOFQM 4-6 HOURS as needed for shortness of breath or wheezing6.70Dece2023 12:00amJune 2024 5:27pmPrednisone 20 mg vpsmhsKsfwexblifzh28QQLEQrnvb950Vhlnqrts 31st, 2024 12:00amJune 2024 5:28pmCiprofloxacin Hcl (Cipro) 250 mg tablet Jyormcdxjrji216QXUMWrxnq 12 mupyx4082Mqqm2024 11:00pmAugust 2024 8:44amCyclosporine 0.05 % dropperetteActiveDROPSOPHTHALMICNov2024 12:00amComplies with drug therapyCephalexin 500 mg ufxunmkRpycwfunjqtd615TGBX Y91C1519GqdyztcyAugust 15, 2025 12:00amDecemb2024 2:17pm Relevant Diagnostic Tests and/or Laboratory Data Laboratory Results Test Collection Date/Time Result Date/Time Result Interpretation Reference Range Result Comment Performing Site Urine Color August 15, 2025 9:08am August 15, 2025 9 :22am darkyellow Bedside GlucoseAugust 15, 2025 9:31amNovemb2024 9:19iu964TYJ SARS CoV-2 AntigenDecemb2024 2:45pmDecember 2024 3:07pmNegativeUrine AppearanceNov2024 9:08amNovemb2024 9:22amcloudyInfluenza Type A (Rapid)September 28, 2025 2:45pmDecember 2024 3:07pmNegativeUrine Glucose (UA)August 15, 2025 9:08amNovember 2024 9:48to707brSwhrk BilirubinNov2024 9:08amNovember 2024 9:22amnegativeUrine Ketones August 15, 2025 9:08amNovember 2024 9:22amnegativeUrine Specific [place] August 15, 2025 9:08amNovember 2024 9:22am1.015Urine Occult Blood August 15, 2025 9:08amNovember 2024 9:22amsmallUrine pHNov2024 9:08amNovember 2024 9:22am6.0Urine ProteinNov2024 9:08am August 15, 2025 9:22amnegativeUrine UrobilinogenNov2024 9:08am August 15, 2025 9:22am0.2Urine Leukocyte EsteraseAugust 15, 2025 9:08am August 15, 2025 9:56amsmall Vital Signs Vital Reading Result Reference Range Collection Date/Time Height 65 [in_i] August 15, 2025 9:14djHzgfgl75.81 kgAugust 15, 2025 9:14amBody Temperature 97.6 [degF]97.6-99.0August 15, 2025 9:14amHeart Rate64 /uyk81-171PraggvdeAugust 15, 2025 9:14amRespiratory rate19 /apn54-16IjuncbcjAugust 15, 2025 9:14amOxygen saturation by Pulse pmflttka48 %95-100August 15, 2025 9:14amBP Wnuqvujo111 mm[Hg]100-140August 15, 2025 9:14amBP Xlpqohgnl44 mm[Hg]60-100August 15, 2025 9:14amBMI (Body Mass Index)24.8 kg/e2AdbdrnngAugust 15, 2025 9:19nwKqapgg79 [in_i]September 28, 2025 2:81iqEcbppt04.39 kgDecemb2024 2:34pmBody Hpnqbzadafi37.5 [degF]97.6-99.0Dece5 2:34pmHeart Rate73 /sbq54-489 September 28, 2025 2:34pmRespiratory rate16 /zfc51-79VdsbceblSeptember 28, 2025 2:34pm Oxygen saturation by Pulse %95-100September 28, 2025 2:34pmBP Nlhxsice349 mm[Hg]100-140September 28, 2025 2:34pmBP Onadancct47 mm[Hg]60-100 September 28, 2025 2:34pmBMI (Body Mass Index)25.4 kg/u3BamynetbSeptember 28, 2025 2:34pm Advance Directives Advance Directive Response Recorded Date/ Time Advance Directives No September 1:32pm Insurance Providers Guarantor Ananda Kan Hong Address [address] [facility] [address]Ffrmxlj Info.Home Phone: Coverage Status Update:2024 Payer Group Member ID Coverage Type Subscriber Relationship to Subscriber Effective Date Expiration Date MMO Id: [id number] S [place] Id: [id number] [address] [facility] [address] Home Phone: SelfTricare th Net Fed-Sta [id number] HLTH NET FED-PRF [id number] Encounters Encounter Location(s) Arrival/Admit Date Discharge/Departure Date Discharge/Departure Disposition Provider(s) Departed Physician/ Provider Office Visit -[facility] August 15, 2025 9:03am August 15, 2025 10:06am Discharged to home care or self care (routine discharge) Duyen Ríos APRN Departed Physician/ Provider Office Visit -[facility] September 28, 2025 1:24pm September 28, 2025 3:30pm Discharged to home care or self care (routine discharge) Duyen Ríos APRN Recent Diagnosis Onset Date Admit Date Dysuria Unknown August 15 9:03am Assessments Diagnosis Onset Date Resolution Status Admit Date Dysuria noneactiveAugust 15, 2025 9:03am Plan of Treatment Author Gemini Silva [facility] HospitalAuthoredNovember 2024 9:59amUA with small leukocytes, small amount of blood, glucose present as well. Random blood sugar in office without significant abnormality- 140s. Patient has been seen several times in the last 5 months for similar complaints, treated for UTIs but cultures returned negative. Has had glucose in urine on several occasions as well as hematuria. Patient has complaints of gross hematuria at times. Discussed with patient given she has small amount of leukocytes in her urine today will again treat for UTI. However I have concern that if culture comes back negative again she should follow-up with PCP for possible urology referral for further evaluation to determine cause of glucosuria, hematuria, ongoing urinary symptoms. Will call with urine culture results in 2 to 4 days. For now we will treat with keflex. Push fluids. Patient verbalized understanding of tx plan. Future Tests Future scheduled test information is unavailable Pending Tests Pending diagnostic test information is unavailable Future Visits Future appointment information is unavailable Future Procedures Future procedure information is unavailable Future Medications Future medication information is unavailable Patient Instructions Patient instructions are unavailable
[2025-09-30] VITALS (7 sets, daily range): BP systolic 137; BP diastolic 91; PULSE 67–70; TEMP 37.3; O2SAT 97; BMI 25.0
--- NOTE | 2025-09-30 12:19 | XR_ITS ---
The [address] [address] Patient Name: ALMAS IZAGUIRRE MRN: [id number] date: 1945 Sex: F Assigned Patient Location: ER Current Patient Location: ER Accession/Order Number: [id number] Exam Date: 09/30/2025 12:28 Report Date: 09/30/2025 12:41 At the request of: XIOMY VIDAL DO Procedure: XR chest 2V PA AND LATERAL CHEST: CLINICAL HISTORY: cough for the past 4 days COMPARISON: 10/14/2024 There is no focal parenchymal consolidation, effusion or pneumothorax. The cardiac, hilar and mediastinal silhouettes are within normal limits. There is no vascular congestion. The visualized bony thorax is intact. There is subtle dextroscoliotic curvature and minor endplate spurring. XR/XR chest 2V IMPRESSION: NO ACUTE CARDIOPULMONARY ABNORMALITY. Impression dictated by: Norma Carlos M.D. 09/30/2025 12:41 PM Dictation Location: [place] [address] Electronically authenticated by: [id number] Y Date: 09/30/2025 12:41
--- NOTE | 2025-09-30 12:25 | ECG_ITS ---
The [facility] Test Date: 2025-09-30 Pat Name: ALMAS IZAGUIRRE Department: Room: - Gender: Female Filling Separator: : 1945 Requested By: [id number] Order Number: [id number] Reading MD: GER CHAWLA M.D. Measurements Intervals Arnold Rate: 69 P: 52 NJ: 190 QRS: -29 QRSD: 74 T: 43 QT: 418 QTc: 438 Interpretive Statements 1100 Sinus rhythm 7202 Moderate left axis deviation 9110 normal ECG No previous ECG available for comparison Electronically Signed On 10-01-2025 7:46:28 EST by GER CHAWLA M.D.
[2025-09-30 12:52] LABS: Hematocrit 41.3 % (36.0-48.0); Hemoglobin 13.9 g/dL (12.0-16.0); Immature Granulocytes Abs Auto 0.02 10^3/uL (0.00-0.03); Immature Granulocytes Pct Auto 0.3 % (0.0-0.5); Lymphocytes Absolute Auto 2.0 10^3/uL (1.2-3.8); Mean Corpuscular HGB Conc 33.7 g/dL (29.9-35.2); Mean Corpuscular Hemoglobin 32.6 pg (26.7-34.0); Mean Corpuscular Volume 96.9 fL (81.0-99.0); Platelet Count 240 10^3/uL (150-450); Red Blood Count 4.26 10^6/uL (4.20-5.40); White Blood Count 6.8 10^3/uL (4.0-11.0)
[2025-09-30 13:07] LABS: SARS-CoV-2 Ag NEGATIVE (NEGATIVE)
--- OUTSIDE RECORDS SUMMARY | 2025-09-30 13:17 | XMS_ITS | Encounter Summary ---
Author Organization [facility] tem Address [id number] [place] [address] Care Team Providers Care Flash Oven Operator Name Role Phone Matt Webb DO Primary Care Provider + [phone] Encounter Details DateTypeDepartmentCare Team (Latest Contact Info)Mrzvwafgaab11/14/2025Results [facility] [address] [place] [address] Matt Webb DO [address], [facility] [address] Hemoglobin A1c, Comprehensive metabolic panel Social History Tobacco UseTypesPacks/DayYears UsedDateSmoking Tobacco: [id number] - 1991Smokeless Tobacco: NeverAlcohol UseStandard Drinks/WeekCommentsYes0 (1 standard drink = 0.6 oz pure alcohol)OCCASIONALAHC UtilitiesAnswerDate Recorded In the past 12 months has the [employer], gas, oil, or water [employer] threatened to shut off services in your home?No09/14/2023Social Connection and Isolation Panel AnswerDate RecordedIn a typical week, how many times do you talk on the phone with family, friends, or neighbors?More than three times a week04/02/2023How often do you get together with friends or relatives?More than three times a week 04/02/2023How often do you attend gnosticist or mosque services?More than 4 times per year04/02/2023o you belong to any clubs or organizations such as gnosticist groups, unions, fraternal or athletic groups, or school groups?Yes04/02/2023How often do you attend meetings of the clubs or organizations you belong to?More than 4 times per year04/02/2023re you , , , , never , or living with a partner?Sarunsw9304/02/2023UDIT-CAnswerDate RecordedQ1: How often do you have a [...] care, and heating?Not hard at all04/02/2023HQ-2AnswerDate RecordedTotal Krgci73611/19/2024Finhighland ridge hospital [place] of Occupational Health - Occupational Stress QuestionnaireAnswerDate RecordedDo you feel stress - tense, restless, nervous, or anxious, or unable to sleep at night because yourmind is troubled all the time - these days?Only a nwgyve4904/02/2023Exercise Vital Sign AnswerDate RecordedOn average, how many [...] stay in as a part of a household?No04/02/2023hildcareAnswerDate RecordedDo problems getting child care associate teacher make it difficult for you to work [...] Date RecordedSex Assigned at BirthNot on fileLegal ZorLlrjuz60/04/2015 1:04 PM EDTGender IdentityNot on fileSexual OrientationNot on filedocumented as of this encounter Miscellaneous Notes * Telephone Encounter - Sondra Lopez CMA - 09/20/2025 2:55 PM EST ----- Message from Matt Webb DO sent at 09/20/2025 3:03 PM EST ----- Overall her labs looked pretty good. Her A1c was 5.6%. She is not a diabetic. Her CMP showed her ALT was up a little but it isn't causing her urinary problem. It had been ok. Her other liver tests were normal. Her kidney blood tests were ok. ----- Message ----- From: Lab, Background User Sent: 09/18/2025 6:40 PM EST To: Matt Webb DO documented in this encounter Plan of Treatment DateTypeDepartmentCare Team (Latest Contact Info)Mkxaogwowdm75/23/2026 10:15 AM ESTOffice Visit [facility] [address] [place] [phone] Matt Webb DO [address], [facility] [place] [address] 11/19/2025 10:00 AM ESTOffice Visit [facility] [address] [place] [address] documented as of this encounter Visit Diagnoses Not on filedocumented in this encounter Additional Health Concerns AssessmentNoted TimePHQ-9 Depression Total Score: 10:23 AM ESTA Body Mass Index follow-up plan has been documented for the arhhkvw7009/18/2025 1:37 PM ESTdocumented as of this encounter Care Teams Team MemberRelationshipSpecialtyStart DateEnd Date Matt Webb DO [address], [place] [address] PCP - GeneralFamily Qqbrlwso18/19/22documented as of this encounter
--- OUTSIDE RECORDS SUMMARY | 2025-09-30 13:17 | XMS_ITS | Encounter Summary ---
Author [facility] tem Address [id number] [place] [address] Care Team Providers Care Vehicle Technician Name Role Phone Matt Webb Primary Care Provider + [phone] Encounter Details DateTypeDepartmentCare Team (Latest Contact Info)Zsjhoqzddtj58/16/2025Telephone [facility] [address] [place] [phone] Sondra Lopez CMA Social History Tobacco UseTypesPacks/DayYears UsedDateSmoking Tobacco: [id number] - 1992Smokeless Tobacco: NeverAlcohol UseStandard Drinks/WeekCommentsYes0 (1 standard drink = 0.6 oz pure alcohol)OCCASIONALAHC UtilitiesAnswerDate Recorded In the past 12 months has the electric, gas, oil, or water company threatened to shut off services in your home?No09/14/2023Social Connection and Isolation Panel AnswerDate RecordedIn a typical week, how many times do you talk on the phone with family, friends, or neighbors?More than three times a week04/02/2023How often do you get together with friends or relatives?More than three times a week 04/02/2023How often do you attend cheondoism or hindu services?More than 4 times per year3Do you belong to any clubs or organizations such as cheondoism groups, unions, fraternal or athletic groups, or school groups?Yes04/02/2023How often do you attend meetings of the clubs or organizations you belong to?More than 4 times per year3Are you , , , , never , or living with a partner?Dxmvpmq9304/02/2023UDIT-CAnswerDate RecordedQ1: How often do you have a [...] care, and heating?Not hard at all04/02/2023HQ-2AnswerDate RecordedTotal Bevea65311/19/2024Finsteward [facility] [place] of Occupational Health - Occupational Stress QuestionnaireAnswerDate RecordedDo you feel stress - tense, restless, nervous, or anxious, or unable to sleep at night because yourmind is troubled all the time - these days?Only a gmgkyb1804/02/2023Exercise Vital Sign AnswerDate RecordedOn average, how many [...] part of a household?No04/02/2023hildcareAnswerDate RecordedDo problems getting residential child care counselor make it difficult for you to work [...] purpose and direction in my life. Strongly Agree3CommentsUnknownSex and Gender InformationValue Date RecordedSex Assigned at BirthNot on fileLegal LxzHfujoy87/04/2015 1:04 PM EDTGender IdentityNot on fileSexual OrientationNot on filedocumented as of this encounter Miscellaneous Notes * Telephone Encounter - Sondra Lopez CMA - 09/22/2025 5:34 PM EST Pt called back and I read lab results. She verbally states she understands. documented in this encounter Plan of Treatment DateTypeDepartmentCare Team (Latest Contact Info)Hxhkaaoyewe43/23/2026 10:15 AM ESTOffice Visit [facility] [address] [place] [address] Matt Webb DO [address] [facility] [place] [address] 11/19/2025 10:00 AM ESTOffice Visit [facility] [address] [place] [address] documented as of this encounter Visit Diagnoses Not on filedocumented in this encounter Additional Health Concerns AssessmentNoted TimePHQ-9 Depression Total Score: 10:23 AM ESTA Body Mass Index follow-up plan has been documented for the eahqhes9509/18/2025 1:37 PM ESTdocumented as of this encounter Care Teams Team MemberRelationshipSpecialtyStart DateEnd Date Matt Webb DO [address] [facility] [place] [address] PCP - GeneralFamily Lqulnxuh14/19/22documented as of this encounter
--- OUTSIDE RECORDS SUMMARY | 2025-09-30 13:17 | XMS_ITS | Clinical Summary ---
Author Organization [employer] tem Address [id number] [address] 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 150 tablet 2Active triamcinolone (KENALOG) 0.1 % cream Apply 1 Application topically in the morning and 1 Application before bedtime. 30 g 5Active vyaaf-3-kjd-mqc-thr-dovt oil 1,050-1,200 mg capsule Take by mouth in the morning.Active ascorbic acid, vitamin C, (VITAMIN C) 100 MG tablet Take 1 tablet (100 mg total) by mouth in the morning.Active calcium citrate-vitamin D2 250 mg-2.5 mcg (100 unit) per tablet Take by mouth in the morning.Active cojtxngx-txvq-DS-calcium &mins (THERAGRAN-M) 9 mg iron-400 mcg tablet Take 1 tablet by mouth in the morning.Active atorvastatin (LIPITOR) 40 mg tablet TAKE 1 TABLET IN THE MORNING 90 tablet 5Active levothyroxine (SYNTHROID, LEVOTHROID) 75 MCG tablet Indications:Acquired hypothyroidismTake 1 tablet (75 mcg total) by mouth in the morning. 90 tablet 5Active famotidine (PEPCID) 20 mg tablet TAKE 1 TABLET IN THE MORNING AND 1 TABLET BEFORE BEDTIME 180 tablet 3095Active amLODIPine (NORVASC) 10 mg tablet Indications:Primary hypertensionTake 1 tablet (10 mg total) by mouth in the morning. 90 tablet 5Active losartan (COZAAR) 100 mg tablet Indications:Benign hypertension with CKD (chronic kidney disease) stage III ([facility])TAKE 1 TABLET IN THE MORNING 90 tablet 5Active bisoprolol-hydroCHLOROthiazide (ZIAC) 10-6.25 mg per tablet Indications:Primary hypertensionTAKE 1 TABLET IN THE MORNING 90 tablet 5Active empagliflozin (JARDIANCE) 10 mg tablet tablet Indications:Benign hypertension with CKD (chronic kidney disease) stage III ([facility])Take 1 tablet (10 mg total) by mouth in the morning. 90 tablet Discontinued(Side effects) Active Problems ProblemNoted DateDiagnosed DateOther microscopic lvixiyphw16/12/2025 Eefincohvezys56/12/2025hronic otitis externa of left ear07/21/2024llergic /26/2449Uyzoicbbew48/26/2023enign hypertension with CKD (chronic kidney disease) stage III09/22/2022ilateral impacted fvxedpz45/16/2022Dysphagia 09/22/2022Gastroesophageal reflux gtbersa1707/26/20221076Szrqmwirhhwipm73/19/2022 Wzdsoszhhdue82/19/8089Awbvjsicqdraur60/19/2022Irritable bowel qwohfedw58/19/2022 Lbcdjcibfwbp54/19/8580Eptnvhs97/19/2022 Resolved Problems ProblemNoted DateDiagnosed DateResolved RdwkQikjpon41 Encounters DateTypeDepartmentCare DatjTmkgtqmecgc14/16/2025Telephone [facility] [address] [place] [address] Sondra Lopez CMA 09/20/2025Results Follow-Up [facility] [address] [place] [address] Matt Webb, DO Hemoglobin A1c, Comprehensive metabolic panel09/18/2025 10:30 AM ESTOffice Visit [facility] [address] [place] [address] Matt Webb, DO Benign hypertension with CKD (chronic kidney disease) stage III ([facility]) (Primary [facility]); Hyperglycemia; Other microscopic hematuria; Overweight; BMI 29.0-29.9,adult09/18/20252624Abpmza59/08/2025Refill [facility] [address] [place] [address] Matt Webb, Benign hypertension with CKD (chronic kidney disease) stage III ([facility]); Primary dzgncxxuqbbw30/06/2025Refill [facility] [address] [place] [address] Madiha Gibson, [facility] Primary hypertensionfrom Last 3 Months Immunizations ImmunizationAdministration DatesNext DueCOVID-19, mRNA, LNP-S, PF, 100mcg/0.5mL Dose12/28/2020OVID-19, mRNA, LNP-S, PF, 30mcg/0.3mL Dose12/06/2020ovid-19, Mrna, Lnp-s, Pf,clayton-sucrose,30 Mcg/0.3ml Dkywlcju62/14/2024Influenza, Injectable, Sdbhpqypdsus34/26/2021,07/21/2020,07/14/2019Influenza, Trivalent, Dmtjwprlio16/14/2024Influenza, Zqdejsxnjju92/08/3466Grfg55/09/2023Zoster Live 09/06/2022Zoster Vaccine Iaivmqyyjkk86/16/2018,05/17/2018 Family History Medical HistoryRelationNameCommentsNo Known ProblemsFatherDied when the patient was youngNo Known ProblemsMotherDied when the patient was youngRelationName StatusCommentsFatherDeceasedMotherDeceased Social History Tobacco UseTypesPacks/DayYears UsedDateSmoking Tobacco: [id number] - 1991Smokeless Tobacco: Never Tobacco Cessation:Counseling Given: Not Answered Alcohol UseStandard Drinks/WeekCommentsYes0 (1 standard drink = 0.6 oz pure alcohol)OCCASIONALAHC UtilitiesAnswerDate RecordedIn the past 12 months has the electric, gas, oil, or water company threatened to shut off services in your home?No09/14/2023Social Connection and Isolation PanelAnswerDate RecordedIn a typical week, how many times do you talk on the phone with family, friends, or neighbors?More than three times a week04/02/2023How often do you get together with friends or relatives?More than three times a week04/02/2023How often do you attend jain or denominational services?More than 4 times per year04/02/2023o you belong to any clubs or organizations such as jain groups, unions, fraternal or athletic groups, or school groups?Yes04/02/2023How often do you attend meetings of the clubs or organizations you belong to?More than 4 times per year04/02/2023 Are you , , , , never , or living with a partner?Jgmyzax8704/02/2023UDIT-CAnswerDate RecordedQ1: How often do you have a drink containing alcohol?Monthly or less04/02/2023Q2: How many drinks containing alcohol do you have on a typical day when you are drinking?1 or Q3: How often do you have six or more drinks on one occasion?Never04/02/2023Overall Financial Resource Strain (CARDIA)AnswerDate RecordedHow hard is it for you to pay for the very basics like food, housing, medical care, and heating?Not hard at all04/02/2023HQ-2AnswerDate RecordedTotal Ieahk52911/19/2024[facility] [place] of Occupational Health - Occupational Stress QuestionnaireAnswerDate RecordedDo you feel stress - tense, restless, nervous, or anxious, or unable to sleep at night because yourmind is troubled all the time - these days?Only a little 04/02/2023Exercise Vital SignAnswerDate RecordedOn average, how many days per week do you engage in moderate to strenuous exercise (like a brisk walk)?4 days 04/02/2023On average, how many minutes do you engage in exercise at this level? 50 min04/02/2023RAPARE - TransportationAnswerDate RecordedIn the past 12 months, has lack of transportation kept you from medical appointments or from getting medications?No04/02/2023In the past 12 months, has lack of transportation kept you from meetings, work, or from getting things needed for daily living?No04/02/2023Housing InstabilityAnswerDate RecordedAre you worried or concerned that in the next two months you may not have stable housing that you own, rent or stay in as a part of a household?No04/02/2023hildcareAnswer Date RecordedDo problems getting child study team director make it difficult for you to work or study?No04/02/2023EmploymentAnswerDate RecordedDo you need help finding a local career center and/or a training program?No04/02/2023Hunger ScreeningAnswerDate RecordedWithin the past 12 months we worried whether our food would run out before we got money to buy more.Never True09/18/2025Within the past 12 months the food we bought just didn't last and we didn't have money to get more.Never True09/18/2025Purpose - LifeAnswerDate RecordedI have a purpose and direction in my life.Strongly Agree04/02/2023CommentsUnknownSex and Gender InformationValueDate RecordedSex Assigned at BirthNot on fileLegal SexFemale 05/11/2015 1:04 PM EDTGender IdentityNot on fileSexual OrientationNot on file Last Filed Vital Signs Vital SignReadingTime TakenCommentsBlood Wetgfxyl292/7809/18/2025 10:23 AM EST Fkqbf900709/18/2025 10:23 AM EKEDfzlrbcnhij83.4 ??C (97.6 ??F)09/18/2025 10:23 AM ESTRespiratory Mntw370611/19/2024 10:23 AM ESTOxygen Ftusyaurrg36%09/18/2025 10:23 AM ESTInhaled Oxygen Concentration--Jctzek92.2 kg (150 lb 6.4 oz)09/18/2025 10:23 AM UEYIxhtim248.4 cm (5')09/18/2025 10:23 AM ESTBody Mass Index29.37 09/18/2025 10:23 AM EST Plan of Treatment DateTypeDepartmentCare Team (Latest Contact Info)Ndncghdxymc10/23/2026 10:15 AM ESTOffice Visit [facility] [address] [place] [address] Matt Webb, [address], [facility] [place] [address] 11/19/2025 10:00 AM ESTOffice Visit [facility] [address] [place] [address] Health MaintenanceDue DateLast DoneCommentsRSV ( or age 60+ yrs) (1 - 1- dose 75+ series)1COVID-19 Vaccine ( season)2025 07/21/2024, 12/28/2020, 12/06/2020Influenza Mpvrcye25/, 08/02/2021, 07/21/2020, Additional history existsMedicare Annual Wellness Visit /08/2025, 11/13/2023Fall Risk Ixpphvghw76/09/2025 Depression Juwextltt49/09/2025Tobacco Qpnhludyz38/09/2025 Brbmkgcdzsi32/14/203306/, 2DTaP,Tdap and Td Vaccines (2 - Td or Tdap)Zoster (Shingles) EgrhtoyJvziojdpi17/30/2022, 08/23/2018, 05/17/2018 Medical Devices Not on file Procedures Procedure NamePriorityDate/TimeAssociated DiagnosisCommentsCOMPREHENSIVE METABOLIC XRCABEcoczxh46/12/2025 10:58 AM EST Benign hypertension with CKD (chronic kidney disease) stage III ([facility]) HEMOGLOBIN N6CJltmezl96/12/2025 10:58 AM EST Hyperglycemia from Last 3 Months Results * Hemoglobin A1c (09/18/2025 10:58 AM EST)ComponentValueRef RangeTest Method Analysis TimePerformed AtPathologist SignatureHEMOGLOBIN A1C5.64.4 - 5.6 % 09/18/2025 7:50 PM [facility] LABORATORYComment: ?ADA Guidelines ?Result ?HgbA1c ? Normal : ? less than 5.7 % ? Prediabetes : ?5.7 % ??to 6.4 % Diabetes : > 6.4 % ?Use with caution in patients with abnormal hemoglobin variants as ??the half-life of red blood cells and in vivo glycation rates are ??affected. EST. AVERAGE KEKXZUO321zw/dL09/18/2025 7:50 PM [facility] LABORATORYSpecimen (Source)Anatomical Location / LateralityCollection Method / VolumeCollection TimeReceived TimeBloodVenous blood / Zknxrlk4609/18/2025 10:58 AM EST09/18/2025 10:58 AM EST Narrative Authorizing ProviderResult TypeResult StatusMatt Webb DOLAB BLOOD ORDERABLESFinal ResultPerforming OrganizationAddressCity/State/ZIP CodePhone Number [facility] [address] [place] [address], * (ABNORMAL) Comprehensive metabolic panel (09/18/2025 10:58 AM EST)Component ValueRef RangeTest MethodAnalysis TimePerformed AtPathologist SignatureSODIUM 487121 - 146 mmol/L111/19/2024 6:40 PM [facility] POTASSIUM4.23.5 - 5.0 mmol/L111/19/2024 6:40 PM [facility] JTDNJSODIEZSSKDGUS80252 - 109 mmol/L111/19/2024 6:40 PM [facility] LABORATORYCARBON KVFMDOG7388 - 32 mmol/L111/19/2024 6:40 PM [facility] LABORATORYANION SBQ039 - 15 mmol/L111/19/2024 6:40 PM [facility] LABORATORYBLOOD UREA PSBNUCJZ136 - 27 mg/dL09/18/2025 6:40 PM [facility] LABORATORYCREATININE0.880.40 - 1.00 mg/dL 09/18/2025 6:40 PM [facility] LABORATORYComment:METHOD TRACEABLE TO IDVA MKOFMSDVBXBZXGJ062(H)65 - 99 mg/dL09/18/2025 6:40 PM [facility] YBHYKYLYAWPOHBZWE95.28.5 - 10.5 mg/dL09/18/2025 6:40 PM [facility] LABORATORYTOTAL PROTEIN7.36.0 - 8.0 g/dL 09/18/2025 6:40 PM [facility] LABORATORYALBUMIN4.73.2 - 5.3 g/dL09/18/2025 6:40 PM [facility] LABORATORYALKALINE DVPQEEEIECH5596 - 130 U/L111/19/2024 6:40 PM [facility] LOTDYUZNXGIQF39<=41 U/L111/19/2024 6:40 PM [facility] DTIRODHMAILHO61(H)<=31 U/L111/19/2024 6:40 PM [facility] LABORATORYBILIRUBIN,TOTAL1.10.3 - 1.2 mg/dL09/18/2025 6:40 PM [facility] LAB[facility]ORYEGFR Non-Race Ouadlifyp31>=60 ml/min/1.73sq.m 09/18/2025 6:40 PM [facility] LABORATORYComment: Reported eGFR is based on the CKD-EPI 2020 equation that does not use a race coefficient. Specimen (Source)Anatomical Location / LateralityCollection Method / Volume Collection TimeReceived TimeBloodVenous blood / Iwoekaq0709/18/2025 10:58 AM EST 09/18/2025 10:58 AM EST Narrative Authorizing ProviderResult TypeResult StatusDennis G Furlong DOLAB BLOOD ORDERABLESFinal ResultPerforming OrganizationAddressCity/State/ZIP CodePhone Number [facility] [address] [place] [address], [place] [phone] from Last 3 Months Insurance Care Teams Team MemberRelationshipSpecialtyStart DateEnd Date Matt Webb DO [address] [place] [address] PCP - GeneralFamily Nuqjwaqc75/19/22
--- OUTSIDE RECORDS SUMMARY | 2025-09-30 13:17 | XMS_ITS | Encounter Summary ---
Author Organization [facility] Address [id number] [address] [place] [address] Care Team Providers Care Statue Carver Name Role Phone Matt Webb Primary Care Provider + [phone] Encounter Details DateTypeDepartmentCare Team (Latest Contact Info)Bmqeagffgjg13/12/2025Travel Social History Tobacco UseTypesPacks/DayYears UsedDateSmoking Tobacco: [id number] - 1991Smokeless Tobacco: NeverAlcohol UseStandard Drinks/WeekCommentsYes0 (1 [...] a week 04/02/2023How often do you attend religion or judaism services?More than 4 times per year04/02/2023o you belong to any clubs or organizations such as religion groups, unions, fraternal or athletic groups, or school groups?Yes04/02/2023How often do you attend meetings of the clubs or organizations you belong to?More than 4 times per year04/02/2023re you , , , , never , or living with a partner?Ygomkke2004/02/2023UDIT-CAnswerDate RecordedQ1: How often do you have a [...] care, and heating?Not hard at all04/02/2023HQ-2AnswerDate RecordedTotal Rlcyx19011/19/2024Fin[facility] [place] of Occupational Health - Occupational Stress QuestionnaireAnswerDate RecordedDo you feel stress - tense, restless, nervous, or anxious, or unable to sleep at night because yourmind is troubled all the time - these days?Only a lkeniz8104/02/2023Exercise Vital Sign AnswerDate RecordedOn average, how many [...] of a household?No04/02/2023hildcareAnswerDate RecordedDo problems getting child & adolescent psychiatrist make it difficult for you to work [...] Date RecordedSex Assigned at BirthNot on fileLegal PhwCypffl00/04/2015 1:04 PM EDTGender IdentityNot on fileSexual OrientationNot on filedocumented as of this encounter Plan of Treatment DateTypeDepartmentCare Team (Latest Contact Info)Xrfotuppnqt00/23/2026 10:15 AM ESTOffice Visit [facility] [address] [place] [address] Matt Webb DO [address] [place] [address] 11/19/2025 10:00 AM ESTOffice Visit [facility] [address] [place] [address] documented as of this encounter Visit Diagnoses Not on filedocumented in this encounter Additional Health Concerns AssessmentNoted TimePHQ-9 Depression Total Score: 10:23 AM ESTA Body Mass Index follow-up plan has been documented for the pshbuwc4809/18/2025 1:37 PM ESTdocumented as of this encounter Care Teams Team MemberRelationshipSpecialtyStart DateEnd Date Matt Webb DO [address] [place] [place] [address] PCP - GeneralFamily Abharzgc33/19/22documented as of this encounter
--- OUTSIDE RECORDS SUMMARY | 2025-09-30 13:17 | XMS_ITS | Clinical Summary ---
Author Organization [facility] Address [address] [place] [address] Care Team Providers Care Hand Iii Cutter Name Role Phone Unavailable Primary Care Provider Unavailabl e Social History Tobacco UseTypesPacks/DayYears UsedDateSmoking Tobacco: Never Assessed CommentsUnknownSex and Gender InformationValueDate RecordedSex Assigned at Not on fileLegal WapSmrlnf59/15/2023 6:45 PM EDTGender IdentityNot on fileSexual OrientationNot on file Last Filed Vital Signs Vital SignReadingTime TakenCommentsBlood Pdqcfdki675/7208 12:00 PM EDT Pulse--Temperature--Respiratory Rate--Oxygen Saturation--Inhaled Oxygen Concentration--Xjruts92.8 kg (145 lb)05/28/2018 12:00 PM TNVUqifbh511 cm (5' 3 ) 05/28/2018 12:00 PM EDTBody Mass Index25.69005/28/2018 12:00 PM EDT Plan of Treatment Not on file
[2025-09-30 13:19] LABS: Anion Gap 13.8; Blood Urea Nitrogen 15.0 mg/dL (7.0-18.0); Calcium 8.8 mg/dL (8.5-10.1); Carbon Dioxide 24.3 mmol/L (21.0-32.0); Chloride 105 mmol/L (98-107); Estimated GFR (African America 56 (>=60 mL/min/1.73m^2); Estimated GFR (Non-African Ame 46 (>=60 mL/min/1.73m^2); Glucose 111 mg/dL (74-106); NT Pro B Type Natriuretic Pept 277.0 pg/mL (<=1800.0); Potassium 4.1 mmol/L (3.5-5.1); Sodium 139 mmol/L (136-145)
--- NOTE | 2025-09-30 13:43 | ED_ITS ---
HPI HPI - General Adult General Chief complaint: Upper Respiratory Infection Stated complaint: COUGH Time Seen by Provider: 09/30/25 12:07 Source: patient Mode of arrival: walk-in Limitations: no limitations History of Present Illness HPI narrative: Patient is a 80-year-old female presenting to the emergency department for evaluation of a cough. The patient states she has had a worsening cough over the last week. She was seen in urgent care a few days ago and was given Tessalon Perles, however her symptoms only of gotten worse. In addition to a productive cough, which today was blood-streaked, she feels short of breath. She denies history of asthma, smoking, or other pulmonary conditions. She denies history of DVT/PE. She denies fevers or chills. No leg swelling, recent surgical procedures, recent immobilizations, cancer history, heart failure, or prior MIs. She denies abdominal pain, nausea, vomiting, or inability to tolerate p.o. She does mention she was diagnosed with pneumonia 1 year ago secondary to COVID-19. Related Data Home Medications ?Medication ?Instructions ?Recorded ?Confirmed albuterol sulfate 90 mcg/actuation inhalation 10/14/24 aerosol inhaler amlodipine 10 mg tablet mg 10/14/24 aspirin 81 mg capsule 81 mg PO DAILY 10/14/2405/01 atorvastatin 20 mg tablet mg 10/14/24 atorvastatin 40 mg tablet mg 10/14/24 bisoprolol 10 1 tab PO DAILY 10/14/2405/01 mg-hydrochlorothiazide 6.25 mg tablet empagliflozin 10 mg tablet mg 10/14/24 (Jardiance) levothyroxine 75 mcg tablet mcg 10/14/24 losartan 100 mg tablet (Cozaar) 100 mg PO DAILY 10/14/24 Previous Rx's ?Medication ?Instructions ?Recorded dexamethasone 4 mg tablet 4 mg PO BID 5 days #10 tabs 09/06/23 levofloxacin 750 mg tablet 750 mg PO DAILY 5 days #5 t abs 09/06/23 ondansetron 4 mg disintegrating 4 mg PO Q6H PRN nausea and 09/06/23 tablet vomiting #12 tabs diclofenac sodium 50 mg 50 mg PO Q12H PRN pain #20 t abs 05/16/25 tablet,delayed release amoxicillin 875 mg-potassium 1 tab PO BID 5 days #10 t abs 09/30/25 clavulanate 125 mg tablet doxycycline hyclate 100 mg capsule 100 mg PO BID 5 day s #10 caps 09/30/25 Allergies Allergy/AdvReac Type Severity Reaction Status Date / Time codeine Allergy Severe fast heart Verified 09/30/25 12:15 rate Opioid HPI Opioid Management Most Recent Opioid Data: Last Pain Scale 4 Today, 12:15 Review of Systems ROS Status of ROS 10 or more systems reviewed and unremark able except as noted in history and below PFSH PFSH Social History Little interest or pleasure in doing things: not at all Feeling down, depressed, or hopeless: not at all Exam Narrative Exam Narrative: CONSTITUTIONAL: Nontoxic, speaking full sentences, answering questions and following commands appropriately SKIN: Was warm and dry. EYES: Sclerae white. EARS, NOSE, THROAT: Moist oral mucosa. RESPIRATORY: Clear to auscultation bilaterally, no wheezes, crackles, or stridor, no use of accessory muscles CARDIOVASCULAR: Normal rate and regular rhythm. There is no S3, S4, murmur, rub. GASTROINTESTINAL: Abdomen is nondistended. MUSCULOSKELETAL: No peripheral edema. NEUROLOGIC: Patient is awake and alert. Facies were symmetrical. Constitutional Vital Signs, click to edit/add: Last Vital Signs Temp 99.2 F 09/30/25 12:15 Pulse 70 09/30/25 12:15 Resp 20 09/30/25 12:15 BP 137/91 09/30/25 12:15 Pulse Ox 97 09/30/25 12:15 O2 Del Method Room Air 09/30/25 12:15 Course Vital Signs Vital signs: Vital Signs Temperature 99.2 F 09/30/25 12:15 Pulse Rate 70 09/30/25 12:15 Respiratory Rate 20 09/30/25 12:15 Blood Pressure 137/91 09/30/25 12:15 Pulse Oximetry 97 09/30/25 12:15 Oxygen Delivery Method Room Air 09/30/25 12:15 Temperature 99.2 F 09/30/25 12:15 Pulse Rate 70 09/30/25 12:15 Respiratory Rate 20 09/30/25 12:15 Blood Pressure 137/91 09/30/25 12:15 Pulse Oximetry 97 09/30/25 12:15 Oxygen Delivery Method Room Air 09/30/25 12:[address] [facility] Narrative Medical decision making narrative: Patient is a 80-year-old female presenting to the emergency department for 1 week history of worsening productive cough and shortness of breath. Vital signs on arrival are within normal limits. She is afebrile and hemodynamically stable. She is saturating 97% on room air with clear breath sounds bilaterally. She is in no respiratory distress and generally appears well. Differential diagnosis includes viral URI, pneumonia, heart failure, ACS, or ot her electrolyte/metabolic derangement. I did consider PE, however using the Wells Criteria, she has a score of 1 (hemoptysis) putting her at the low risk group (1.3% chance of PE in the ED population). Hemoptysis is likely related to bronchitis/persistent coughing. Laboratory studies were obtained including chest x-ray and viral swabs. Laboratory studies were unremarkable. No significant electrolyte or metabolic derangement. No evidence of acute kidney injury. No anemia, leukocytosis, or thrombocytopenia. BNP and troponin nonelevated. COVID/flu swabs negative. 12 Lead EKG: Normal sinus rhythm at a rate of 69. Normal axis. No ST segment elevations. QRS, MD, and QTc interval within normal limits. Final impression: normal sinus rhythm without evidence of acute myocardial ischemia. Chest x-ray independently reviewed/interpreted by myself demonstrated no acute cardiopulmonary process. I do believe the patient is stable for discharge. Patient's presentation is most likely consistent with viral URI. However, given her blood-tinged sputum and worsening of her symptoms over 1 week, I am concerned for possible developing pneumonia. Therefore, I did elect to empirically treat her for community- acquired pneumonia. They were instructed to follow up with Augmentin 875 mg and doxycycline 100 mg twice daily x 5 days. Return precautions were given including any new or worsening symptoms. They are instructed to follow-up with her PCP for further care. Patient understands and agrees to the plan. FINAL IMPRESSION: #Acute upper respiratory infection, possible early pneumonia DISPOSITION: Discharged home CONDITION: Good Lab Data Lab results reviewed: Yes I reviewed the patient's lab results Labs: Lab Results 09/30/25 09/30/25 Range/Units 12:43 12:45 WBC 6.8 (4.0-11.0) 10^3/uL RBC 4.26 (4.20-5.40) 10^6/uL Hgb 13.9 (12.0-16.0) g/dL Hct 41.3 (36.0-48.0) % MCV 96.9 (81.0-99.0) fL MCH 32.6 (26.7-34.0) pg MCHC 33.7 (29.9-35.2) g/dL RDW 12.6 (11.0-15.0) % Plt Count 240 (150-450) 10^3/uL MPV 9.5 (9.5-13.5) fL Neut % (Auto) 57.7 (43.0-75.0) % Lymph % (Auto) 30.2 (20.5-60.0) % [place] % (Auto) 10.1 (1.7-12.0) % Eos % (Auto) 1.3 (0.9-7.0) % Baso % (Auto) 0.4 (0.2-2.0) % Neut # (Auto) 3.9 (1.4-6.5) 10^3/uL Lymph # (Auto) 2.0 (1.2-3.8) 10^3/uL [place] # (Auto) 0.7 (0.3-0.8) 10^3/uL Eos # (Auto) 0.1 (0.0-0.7) 10^3/uL Baso # (Auto) 0.0 (0.0-0.1) 10^3/uL Abs Immat Gran (auto) 0.02 (0.00-0.03) 10^3/uL Imm/Tot Granulo (auto) 0.3 (0.0-0.5) % Sodium 139 (136-145) mmol/L Potassium 4.1 (3.5-5.1) mmol/L Chloride 105 (98-107) mmol/L Carbon Dioxide 24.3 (21.0-32.0) mmol/L Anion Gap 13.8 BUN 15.0 (7.0-18.0) mg/dL Creatinine 1.14 H (0.55-1.02) mg/dL Est GFR ( Amer) 56 L (>=60 mL/min/1.73m^2) Est GFR (Non-Af Amer) 46 L (>=60 mL/min/1.73m^2) BUN/Creatinine Ratio 13.2 Glucose 111 H (74-106) mg/dL Calcium 8.8 (8.5-10.1) mg/dL Troponin I High Sens 6.4 (4.0-51.3) pg/mL NT-Pro-B Natriuret Pep 277.0 (<=1800.0) pg/mL Influenza Type A Ag Negative Influenza Type B Ag Negative SARS-CoV-2 Ag (CV2AG) Negative (NEGATIVE) Imaging Data Chest x-ray: Attestation: I personally reviewed and interpreted this imaging study as follows: Radiologist's impression: ITS Impressions Chest X-Ray 09/30/25 12:19 IMPRESSION: NO ACUTE CARDIOPULMONARY ABNORMALITY. Impression dictated by: Norma Carlos M.D. 09/30/2025 12:41 PM Dictation Location: [facility] Electronically authenticated by: [id number] Y Date: 09/30/2025 12:41 ECG Data Attestation: I personally reviewed and interpreted this ECG as follows: Discharge Plan Discharge Chief Complaint: Upper Respiratory Infection Clinical Impression: Upper respiratory infection Patient Disposition: Home, Self-Care Time of Disposition Decision: 13:28 Condition: Good Mode of Transportation: Private Vehicle Prescriptions / Home Meds: New amoxicillin-pot clavulanate 875-125 mg tablet 1 tab PO BID 5 Days Qty: 10 0RF doxycycline hyclate 100 mg capsule 100 mg PO BID 5 Days Qty: 10 0RF No Action diclofenac sodium 50 mg tablet,delayed release (DR/EC) 50 mg PO Q12H PRN (Reason: pain) Qty: 20 0RF levofloxacin 750 mg tablet 750 mg PO DAILY 5 Days Qty: 5 0RF dexamethasone 4 mg tablet 4 mg PO BID 5 Days Qty: 10 0RF ondansetron 4 mg tablet,disintegrating 4 mg PO Q6H PRN (Reason: nausea and vomiting) Qty: 12 0RF atorvastatin 40 mg tablet levothyroxine 75 mcg tablet amlodipine 10 mg tablet Jardiance 10 mg tablet losartan [Cozaar] 100 mg tablet 100 mg PO DAILY bisoprolol-hydrochlorothiazide 10-6.25 mg tablet 1 tab PO DAILY aspirin 81 mg capsule 81 mg PO DAILY atorvastatin 20 mg tablet albuterol sulfate 90 mcg/actuation HFA aerosol inhaler INHALATION Print Language: Tunisian Instructions: Upper Respiratory Infection (ED) Additional Instructions: Follow up with your PCP in 5 days Referrals: AGUSTIN BOLTON [Primary Care Provider, Family Practice] - 1 week
== END 2025-09-30 13:52 | disposition home or self-care (01) ==
PROVIDERS: Emergency Provider Student in an Organized Health Care Education/Training Program; PCP Family Medicine
DX: J06.9 Acute upper respiratory infection, unspecified (principal); R06.02 Shortness of breath; Z86.16 Personal history of COVID-19; Z87.01 Personal history of pneumonia (recurrent)
CPT/HCPCS: 36415; 71046; 80048; 83880; 84484; 85025; 87804; 87811; 93005; 99284